=== PATIENT | female | born 1950 | race Caucasian/White ===

== ENCOUNTER 2024-04-25 01:07 | Inpatient (IN) | payer MEDICARE, OTHER, SELFPAY ==
[2024-04-24] VITALS (9 sets, daily range): BP systolic 104–139; BP diastolic 56–108; BMI 29.0
[2024-04-24 16:51] LABS: % Basophils 0.3 % (0-2); % Eosinophils 0.1 % (0-6); % Immature Granulocytes 0.9 % (0-0.5); % Lymphocytes 8.4 % (20.5-51.1); % Monocytes 12.2 % (1.7-9.3); % Neutrophils 78.1 % (42.2-75.2); Absolute Basophils 0.1 10^3/uL (0-0.2); Absolute Immature Granulocytes 0.2 10^3/uL (0-0.05); Absolute Lymphocytes 1.8 10^3/uL (1.2-3.4); Absolute Monocytes 2.6 10^3/uL (0.1-0.6); Absolute Neutrophils 16.4 10^3/uL (1.4-6.5); Hematocrit 39.7 % (37.0-47.0); Hemoglobin 13.3 g/dL (12.0-16.0); Mean Corp Hgb Conc. 33.5 g/dL (33.0-37.0); Mean Corpuscular Hgb 30.7 pg (27.0-31.0); Mean Corpuscular Volume 91.7 fL (81.0-99.0); Mean Platelet Volume 11.2 fL (7.4-10.4); Nucleated Red Blood Cells % 0 %; Platelet Count 168 10^3/uL (130-400); Red Blood Cell Count 4.33 10^6/uL (4.20-5.40); Red Cell Dist. Width 13.4 % (11.5-14.5)
[2024-04-24 17:07] LABS: Urine Albumin Trace (Neg - Trace); Urine Bilirubin 1+ (Negative); Urine Character Clear (Clear); Urine Color Amber; Urine Glucose Negative (Negative); Urine Ketone 1+ (Negative); Urine Leukocyte Negative (Negative); Urine Nitrite Negative (Negative); Urine Occult Blood Negative (Negative); Urine Urobilinogen 1+ (Neg - 1+)
[2024-04-24 17:09] LABS: ALT (SGPT) 16 U/L (0-35); AST (SGOT) 17 U/L (14-36); Albumin 3.4 g/dl (3.5-5.0); Alkaline Phosphatase 84 U/L (38-126); Blood Urea Nitrogen 37 mg/dl (7-17); Calcium 8.7 mg/dl (8.4-10.2); Carbon Dioxide 31 mmol/L (22-30); Chloride 99 mmol/L (98-107); Estimated Creatinine Clearance 52 ml/min; Glucose 152 mg/dl (70-99); Potassium 3.8 mmol/L (3.5-5.1); Sodium 141 mmol/L (135-145); Total Bilirubin 0.6 mg/dl (0.2-1.3); eGFR > 60.00
[2024-04-24 17:21] LABS: COVID-19 Antigen Negative (Negative)
--- NOTE | 2024-04-24 22:52 | ED.GENMED ---
History of Present Illness
General
Chief Complaint: Change in Mental Status
Source: patient
Exam Limitations: none
Time Seen by Provider: 04/24/24 16:08
Nursing documentation reviewed up to this point in time: agreed with
History of Present Illness
History of Present Illness:
73-year-old female with past medical history of Parkinson's disease, dementia, hypothyroidism, hyperlipidemia who presents to the emergency room from [facility] for evaluation of change in mental status. Patient cannot
meaningfully participate in history because of her significant dementia. I spoke to the [facility] staff they report that over the past few days she has had increased lethargy and confusion and today seems much more lethargic and so they sent her
to the emergency to be assessed. They have not noticed any other specific symptoms. She did have a minor fall last week but no serious injuries. Patient says that she feels weak but denies any other complaints on review of systems. She denies
headache. Denies neck pain. Denies chest or abdominal pain. Denies back pain. Review of her medication shows no blood thinners.
Past History
Past History
ED Past Medical History: CVA, Hypothyroidism, Psychiatric (biploar, schizophrenia), Other (PVD, gait dysfunction, dementia) and Other (Kidney stones)
ED Past Surgical History: Other (Cecil teeth removal)
Social History
Tobacco: Non-smoker
Alcohol: None
Drug: None
Living: [facility]
Review of Systems
Review of Systems
Unable to obtain full review of systems at this time due to: dementia
Phy Exam
Physical Exam
Physical Exam:
General: Somewhat lethargic but wakes to voice, oriented x 1, not in distress
Head: Normocephalic, atraumatic
Eyes: Conjunctiva normal, EOMI, pupils equal round and reactive to light bilaterally
Throat: Airway intact, handling secretions
Neck: Trachea midline, supple without meningismus
Lungs: Clear to auscultation bilaterally, no wheezing, rales, rhonchi
Heart: Regular rate and rhythm, no murmurs, gallops, or rubs
Abd: Soft, non distended, no masses, no apparent tenderness
Neuro: No gross cranial nerve deficits, follows basic commands, attempts to respond to questions appropriately, no clear dysarthria or aphasia, generally weak but no focal weakness or numbness
Skin: no rash
Extremities: No edema in extremities, equal pulses in all extremities
Scores
Heart Failure Risk
Heart Failure Risk Score: Not Applicable
Heart Score for Chest Pain Patients
STEMI patient?: Not applicable
Withdrawal Assessment of Alcohol
Withdrawal Assessment Completed?: Not applicable
Course
Orders/Labs/Results
Orders:
Orders
04/24/24 16:09
Electrocardiogram (*1) Urgent
Reason for Study: Fatigue / Weakness
CT Head W/o Iv Contrast Urgent
Comment:
Reason For Exam: change in mentation
EKG- Treatment ONCE
CR Chest Portable - 1 View Urgent
Comment:
Reason For Exam: confusion, r/o pna
Reason Study Needs to be Portable: Unable to Transport
04/24/24 16:19
COVID-19 Antigen Urgent
Source: Nasal Swab
Complete Blood Count/With Diff Urgent
Comprehensive Metabolic Panel Urgent
TSH Reflex To Free T4 Urgent
Urinalysis Reflex To Culture Urgent
Date Specimen was Collected: 04/24/24
Time Specimen was Collected: 16:14
04/24/24 21:19
CT Chest/abd/pel W Iv Cont Urgent
Comment:
Reason For Exam: confused, sepsis, source unclear
04/24/24 23:02
0.9% Sodium Chloride 1000 ml [Nss] 1,000 ml IV BOLUS
04/24/24 23:37
CefTRIAXone [Rocephin] 1,000 mg IV NOW STA
MetroNIDAZOLE 500 MG/100 ML [Flagyl 500 mg] 100 ml IV NOW
10/14/24 23:39
SURGICAL CONSULT Urgent
Consulting Provider: Hi Banerjee
Was physician already notified: Yes
Abnormal Lab Results
04/24/24
16:19
WBC 21.0 H 10^3/uL
(4.8-10.8)
MPV 11.2 H fL
(7.4-10.4)
Abs Immat Gran (auto) 0.2 H 10^3/uL
(0-0.05)
Absolute Neuts (auto) 16.4 H 10^3/uL
(1.4-6.5)
Absolute Monos (auto) 2.6 H 10^3/uL
(0.1-0.6)
Immature Gran % 0.9 H %
(0-0.5)
Neutrophils % 78.1 H %
(42.2-75.2)
Lymphocytes % 8.4 L %
(20.5-51.1)
Monocytes % 12.2 H %
(1.7-9.3)
Carbon Dioxide 31 H mmol/L
(22-30)
BUN 37 H mg/dl
(7-17)
Glucose 152 H mg/dl
(70-99)
Total Protein 6.0 L g/dl
(6.3-8.2)
Albumin 3.4 L g/dl
(3.5-5.0)
Urine Ketones 1+ A
(Negative)
Urine Bilirubin 1+ A
(Negative)
04/24/24 16:19
04/24/24 16:19
Vital Signs
Initial and Last Documented VS:
Initial Vital Signs
Temp Pulse Resp BP Pulse Ox
36.6 C 75 24 124/76 95
04/24/24 16:04 04/24/24 16:04 04/24/24 16:04 04/24/24 16:04 04/24/24 16:04
Last Documented Vital Signs
Temp Pulse Resp BP Pulse Ox
36.7 C 80 20 130/100 96
04/24/24 22:00 04/24/24 22:00 04/24/24 22:00 04/24/24 22:00 04/24/24 22:00
MDM/Problems Addressed
Differential Diagnosis Includes:
Infection including UTI or pneumonia, intra-abdominal infection; stroke; dehydration; worsening dementia, polypharmacy, delirium
MDM/Problems Addressed:
73-year-old female presents from [facility] for progressive increasing lethargy and confusion over the past few days. Vital signs significant for tachypnea here but acceptable pulse ox, no fever, normal blood pressure, normal heart rate.
Physical exam as above. Will place an IV check labs including a CBC and a CMP. Check thyroid studies. Check urinalysis. Check COVID swab. Will check chest x-ray and EKG. Check CT head. Reassess after the above.
Labs reviewed: CBC shows significant leukocytosis to 21. Predominant neutrophils. CMP shows elevated BUN concerning for possible dehydration. Thyroid studies acceptable. Urinalysis negative for infection. COVID-negative. Chest x-ray no acute
disease. CT head negative for any acute pathology. Patient remains mildly lethargic it could simply be dehydration but with multiple SIRS criteria concern for occult infection will send for CT chest/abdomen/pelvis to rule out infectious process.
Fluids in progress.
CT shows signs concerning for acute cholecystitis. Will cover with antibiotics. Case discussed with general surgery for consultation. Case discussed with hospitalist for admission.
Chronic conditions affecting care:
Dementia
*Radiology
Radiology exam reviewed: radiology read reviewed
*Pulse Oximetry
Patient hypoxic: no
*EKG
Interpreted by ED Provider?: Yes
Heart Rate: 75
Rate: normal
Rhythm: sinus
[place]: normal axis
Interval: normal interval
QRS Pattern: normal QRS
Ischemia: non-specific ST changes
*Critical Care Note
Total Time (30-74mins, 75-104mins- exclusive of procedures): Not Applicable
Data Reviewed
Source: patient, records, ambulance crew, [facility] and [facility] records
Patient Management
Discussion with other providers: skilled nursing staff (Discussed with [facility] staff)
ED Attending Note
-
Portions of this chart may have been created with voice recognition software.� Occasional wrong word or��sound alike� substitutions may have occurred due to the inherent limitations of voice recognition software.
Discharge Plan
Departure
Patient Disposition: Admit
Date of Disposition: 04/24/24
Time of Disposition: 23:36
Admit to doctor: Mackenzie
Presentation/result/management discussed w/ accepting MD/DO: Hospitalist
Discharge Problem:
Acute cholecystitis
Prescriptions:
No Action
amantadine HCl 100 MG capsule
100 mg PO BID
lorazepam 1 MG tablet
1 mg PO TID
olanzapine [Zyprexa] 20 MG tablet
20 mg PO HS
acetaminophen 325 MG tablet
650 mg PO Q4HPRN PRN (Reason: mild pain/fever>100f)
divalproex 250 MG tablet,delayed release (DR/EC)
250 mg PO HS
magnesium hydroxide 30 ML suspension
30 ml PO HSPRN PRN (Reason: if no bm x 3 days)
bisacodyl [OneLAX Bisacodyl] 10 MG suppository
10 mg CO DAILYPRN PRN (Reason: if mom ineffective)
docusate sodium 100 MG capsule
100 mg PO DAILY
divalproex 500 MG tablet,delayed release (DR/EC)
500 mg PO TID
amlodipine 10 MG tablet
10 mg PO DAILY
polyethylene glycol 3350 17 GRAMS powder in packet
17 grams PO DAILY
Fleet Enema 19-7 gram/118 mL Enema
118 ml CO DAILYPRN PRN (Reason: if dulcolax is ineffective)
fluoxetine 10 mg capsule
10 mg PO HS
Rx Instructions:
taken w/ 20mg = 30mg
haloperidol 2 mg tablet
2 mg PO BID
fluoxetine 20 mg capsule
20 mg PO HS
Rx Instructions:
taken w/ 10mg = 30mg
levothyroxine 112 mcg tablet
112 mcg PO DAILY
Referrals:
Sourav Vanessa I., DO [Family Provider] -
Interventions
Interventions:
*Risk Screen - Suicide Last Done: 04/24/24 16:04
*General Assessment Last Done: 04/24/24 16:04
*Neglect/Abuse Screening Last Done: 04/24/24 16:04
ED- Fall Risk Assessment Last Done: 04/24/24 16:08
*ED COVID-19 Vaccine History Last Done: 04/24/24 16:04
ED- Pulmonary Assessment Last Done: 04/24/24 20:23
ED- Neurological Assessment Last Done: 04/24/24 20:23
ED- Cardiac Assessment Last Done: 04/24/24 20:23
ED Swallowing Screen Last Done: 04/24/24 16:12
Discharge Date and Time
Print Language: BURMESE
[2024-04-24] MEDS: NSS 1000 IV (23:25)
[2024-04-25] VITALS (18 sets, daily range): BP systolic 5–155; BP diastolic 20–87; BMI 28.6
--- NOTE | 2024-04-25 00:34 | HPS.HSE ---
Family Physician
-
Family Physician: Sourav Vanessa
Chief Complaint
-
Altered mental status
History of Present Illness
Patient is a 73-year-old female with past medical history of Parkinson disease, dementia, schizophrenia, hypothyroid, hyperlipidemia who was transferred [facility] [place] [facility] to the emergency department for altered mental status.
Patient unable to provide any significant history. She only reports that she had had a fall recently and that she is having some abdominal discomfort but the time I saw her she said that abdominal discomfort had improved. Records from the nursing
home indicated that the patient has had increased lethargy and confusion for the last few days. The reported that she feels weak but denies any specific complaints including headache or neck pain. Denied chest or abdominal pain. Also denied back
pain. Patient is not on any blood thinners. Due to increased lethargy she was sent to the emergency department for evaluation. She had no recent hospitalizations.
On arrival in the ED the patient was afebrile and hemodynamically stable. Normal pressure was 1 3100. She was at 90% on room air. Chest x-ray shows no acute infiltrates. She had negative COVID. She had leukocytosis of 21,000 with hemoglobin of
13 and a normal platelet count. Chemistries are notable for a bicarb of 31 but otherwise unremarkable. LFTs were within normal limit. TSH was normal. UA shows few ketones but otherwise unremarkable.
Patient had a CT of the head which showed no acute intracranial changes. The CT of the abdomen and pelvis shows gallstones with secondary changes consistent with cholecystitis. She had mild to minimal pain on my examination.
Medical History
Past Medical History
Past Medical History: Reports Other
Additional Past Medical History:
Parkinson's disease
Hypothyroidism
Hypertension
Schizophrenia
Past Surgical History: Reports Other
Social History
Tobacco: Former Smoker
Alcohol: None
Drug: None
Personal: Single
Living: Long Term
Employment: Disabled
Family History
Family History: Not pertinent
Allergies / Home Medications
Allergies reflects when Allergies were last updated in [facility].
Home Medications with original date entered in [facility]
Allergy/Medication List:
Allergies
Allergy/AdvReac Type Severity Reaction Status Date / Time
No Known Allergies Allergy Verified 10/14/20 19:47
Home Medications
amantadine HCl 100 mg capsule 100 mg PO BID 05/18/17
lorazepam 1 mg tablet 1 mg PO TID 05/18/17
olanzapine 20 mg tablet (Zyprexa) 20 mg PO HS 05/18/17
acetaminophen 325 mg tablet 650 mg PO Q4HPRN PRN mild pain/fever>100f 12/01/17
bisacodyl 10 mg rectal suppository (OneLAX Bisacodyl) 10 mg SD DAILYPRN PRN if mom ineffective 12/01/17
divalproex 250 mg tablet,delayed release 250 mg PO HS 12/01/17
docusate sodium 100 mg capsule 100 mg PO DAILY 12/01/17
magnesium hydroxide 400 mg/5 mL oral suspension 30 ml PO HSPRN PRN if no bm x 3 days 12/01/17
amlodipine 10 mg tablet 10 mg PO DAILY 10/14/20
divalproex 500 mg tablet,delayed release 500 mg PO TID 10/14/20
polyethylene glycol 3350 17 gram oral powder packet 17 grams PO DAILY 02/10/21
fluoxetine 10 mg capsule 10 mg PO HS 04/24/24
fluoxetine 20 mg capsule 20 mg PO HS 04/24/24
haloperidol 2 mg tablet 2 mg PO BID 04/24/24
levothyroxine 112 mcg tablet 112 mcg PO DAILY 04/24/24
sodium phosphates 19 gram-7 gram/118 mL enema (Fleet Enema) 118 ml SD DAILYPRN PRN if dulcolax is ineffective 04/24/24
Review of Systems
-
History Source: Long Term
Constitutional: Reports No Symptoms
EENT: Reports No Symptoms
Respiratory: Reports No Symptoms
Cardiac: Reports No Symptoms
Abdomen/GI: Reports No Symptoms
: Reports No Symptoms
Musculoskeletal: Reports No Symptoms
Skin: Reports No Symptoms
Neurological: Reports Weakness and Other
Endocrine: Reports No Symptoms
Hematologic/Lymphatic: Reports No Symptoms
Psych: Reports Calm
Physical Exam
Vital Signs
Vital Signs
Temp Pulse Resp BP Pulse Ox
98.1 F 80 20 130/100 96
04/24/24 22:00 04/24/24 22:00 04/24/24 22:00 04/24/24 22:00 04/24/24 22:00
Physical Exam
General: Comfortable and Conversant
HEENT: NormoCephalic, Anicteric, Moist mucous membranes and Atraumatic
Respiratory: Clear
Cardiac: S1/S2 and Regular Rhythm
Breast: Deferred by me
GI: Soft, Non Tender, Non Distended and Normal Bowel Sounds
Rectal: Deferred by Provider
Genito-urinary: Deferred by me
Musculoskeletal: No Clubbing, No Cyanosis and No Edema
Skin: Warm
Neuro: Alert, Oriented (Oriented to person) and Nonfocal/grossly intact
Hematologic/Lymphatic: No Lymphadenopathy
Psych: Calm and Confused
Laboratory Results
-
04/24/24 16:19
04/24/24 16:19
Laboratory Results
Total Bilirubin 0.6 mg/dl (0.2-1.3) 04/24/24 16:19
AST 17 U/L (14-36) 04/24/24 16:19
ALT 16 U/L (0-35) 04/24/24 16:19
Alkaline Phosphatase 84 U/L (38-126) 04/24/24 16:19
Data Reviewed
-
Diagnostic Radiology: Image Personally Visualized and interpreted
CT Scan: Report Reviewed by me
Lab Data: Labs Reviewed by me
Old Records: Reviewed
Impression/Plan
-
IMPRESSION:
73-year-old with history of dementia and schizophrenia who comes in with increasing lethargy weakness and confusion. She has significant leukocytosis and found to have gallstones and cholecystitis on CT scan. The rest of the infectious workup so
far has been negative for pneumonia or urinary tract infection. Negative COVID. Labs noted showed no other significant abnormalities. CT of the head was negative.
PLAN:
Acute cholecystitis -acute cholecystitis is highly suspected however patient is quite comfortable right now and has not received any pain medications.
-Admit to MedSurg
-N.p.o. except sips and oral medications
-Maintenance IV fluids
-Okay with ceftriaxone and Flagyl for now
-Blood cultures if spike fever
-Surgery consult in a.m. and consider HIDA
Confusion
-Suspect secondary to cholecystitis
-Check ammonia level given patient on valproic acid
Parkinson Dz
- continue amantadine
HTN
- norvasc
Hypothyroid - tsh wnl
- continue levothyroxine
Other issues - Dementia and Schizophrenia
-Continue Depakote for now, continue fluoxetine and haloperidol
[2024-04-25] MEDS: ROCEPHIN 1000 MG IV ×2 (01:12→23:07)
[2024-04-25] MEDS: FLAGYL 500 MG 100 IV ×4 (01:51→23:06)
[2024-04-25 04:41] LABS: Hematocrit 37.4 % (37.0-47.0); Hemoglobin 12.8 g/dL (12.0-16.0); Mean Corp Hgb Conc. 34.2 g/dL (33.0-37.0); Mean Corpuscular Volume 93.5 fL (81.0-99.0); Mean Platelet Volume 11.3 fL (7.4-10.4); Platelet Count 148 10^3/uL (130-400); Red Cell Dist. Width 13.2 % (11.5-14.5); White Blood Cell Count 18.9 10^3/uL (4.8-10.8)
[2024-04-25 05:01] LABS: Blood Urea Nitrogen 32 mg/dl (7-17); Calcium 8.2 mg/dl (8.4-10.2); Carbon Dioxide 29 mmol/L (22-30); Chloride 102 mmol/L (98-107); Estimated Creatinine Clearance 67 ml/min; Glucose 137 mg/dl (70-99); Potassium 4.1 mmol/L (3.5-5.1); Sodium 140 mmol/L (135-145); eGFR > 60.00
[2024-04-25] MEDS: D5LR 1000 IV ×2 (05:24→20:00)
[2024-04-25] MEDS: SYNTHROID 112 MCG PO (05:32)
[2024-04-25 05:50] LABS: Hepatitis C Antibody Negative (Negative)
--- NOTE | 2024-04-25 07:38 | W.PN.HOSP.TC ---
Today's Communication/Plan
-
NPO for surgical evaluation today likely cholecystitis
cont abx
NWB LLE, apply CAM boot
pain control
Assessment / Plan
Assessment / Plan
Physical Exam
General: Comfortable and Conversant
HEENT: NormoCephalic, Anicteric, Moist mucous membranes and Atraumatic
Respiratory: Clear
Cardiac: S1/S2 and Regular Rhythm
GI: Soft, Non Tender, Non Distended and Normal Bowel Sounds
Musculoskeletal: No Clubbing, No Cyanosis and No Edema, tenderness swelling left ankle, tenderness left hip, both legs are equal length
Skin: Warm
Neuro: Lethargic but arousable, disoriented to time, conversant
Psych: Calm and Confused
73F dementia and schizophrenia who comes in with increasing lethargy weakness and confusion. She has significant leukocytosis and found to have gallstones and cholecystitis on CT scan. The rest of the infectious workup so far has been negative for
pneumonia or urinary tract infection. Negative COVID. Labs noted showed no other significant abnormalities. CT of the head was negative.
PLAN:
Acute cholecystitis
-acute cholecystitis highly suspected though no abd tenderness pain noted
-N.p.o. except sips and oral medications
-Maintenance IV fluids
-cont ceftriaxone and Flagyl
-Blood cultures if spike fever
-HIDA results noted
-Surgery eval appreciated NPO for surgical intervention
Left Lower Ext Distal Fibula Fx
-ELLIS Haynes reported there was concern few days [employer]PER[employer] patient had fractured LLE fibula, oupt orthopedic eval was scheduled
-wheelchair bound at baseline but able to perform her own transfers
-LLE ext appreciated possible spiral fracture distal fibula
-Ankle X-ray ordered to further elucidate
-NWB LLE, CAM Boot ordered, eventual orthopedic eval, above surgery takes priority
Confusion likely acute metabolic encephalopathy 2/2 cholecystitis as above
Parkinson Dz
- continue amantadine
HTN
- norvasc
Hypothyroid - tsh wnl
- continue levothyroxine
Other issues - Dementia and Schizophrenia
-Continue Depakote for now, continue fluoxetine and haloperidol
discussed with patient and patient's cousin ELLIS Haynes
I spent a total of 60 minutes with the patient or on the floor. More than 50% of this time involved counseling and coordination of care.
Anticipated Discharge: > 48 hours
Subjective/Interval History
-
Date of Service: April 25, 2024
Lethargic but arousable. conversant coherent some confusion memory issues noted. Cousin ELLIS Haynes present during evaluation
Objective Data
-
Labs:
Laboratory Results
04/25/24
04:24
WBC 18.9 H
Hgb 12.8
Hct 37.4
Plt Count 148
Sodium 140
Potassium 4.1
Chloride 102
Carbon Dioxide 29
BUN 32 H
Creatinine 0.7
Glucose 137 H
Calcium 8.2 L
Vital Signs:
Vital Signs
Temp Pulse Resp BP Pulse Ox
97.7 F 79 16 139/76 96
04/25/24 02:30 04/25/24 02:30 04/25/24 02:30 04/25/24 02:30 04/25/24 02:30
I&O
04/24/24 04/25/24 04/26/24
06:59 06:59 06:59
Intake Total 1250 / 1250
Balance 1250 / 1250
[2024-04-25] MEDS: HALDOL 2 MG PO (08:24)
[2024-04-25] MEDS: DEPAKOTE (12 HR RELEASE) 500 MG PO (08:25)
[2024-04-25] MEDS: NORVASC 10 MG PO (08:25)
[2024-04-25] MEDS: SYMMETREL 100 MG PO (08:25)
[2024-04-25] MEDS: ATIVAN 1 MG PO (08:25)
[2024-04-25] MEDS: COLACE 100 MG PO (08:25)
--- NOTE | 2024-04-25 10:15 | CM ---
Pt from [facility].
CM spoke w/ nurse from [facility] re pt's BL and prev. level of functioning.
Prior to admission, pt was alert and oriented, 2-3, behavioral outbursts and accusatory behavior.
This was presented about once a week per nurse.
Pt was a max assist of 2 for transfers and stand pivot to get OOB
Pt uses a wheelchair w/ supported cushion between her legs to prevent her from sliding out as she leans fwd while in chair
It was confirmed pt is a bed hold. Unsure of how many days.
Referral to return to facility to be completed
CM will cont. to follow for d/c planning
Plan: Return to [facility] at d/c
--- NOTE | 2024-04-25 12:02 | PTCARENOTE ---
IR[facility] note: Asked by site damage prevention technician to give Morphine 2mg IV for HIDA scan. patient identified. Allergies verified. Left arm PIV flushed and patent. Pre medicine Vitals @ 1153 BP 170/88 HR 82 RR 16 SPO2 92% RA. Morphine Sulfate 2 mg IV given
per order. tolerated well. Post Medicine vitals @ 1200 BP 166/82, HR 84, RR 14 SPO2 93% RA.
[2024-04-25] MEDS: DEPAKOTE (12 HR RELEASE) PO ×3 (12:39→22:35)
--- NOTE | 2024-04-25 14:14 | CON.GS ---
Medical History
-
Chief Complaint: Lethargy
History of Present Illness:
Patient is a 73 yo F with a PMH notable for Parkinson's dementia, schizophrenia, HLD, and hypothyroidism. Ms. Sun presents in transfer from [facility] due to lethargy and altered mental status. Patient unable to provide any
significant history. Currently denies any abdominal pain. No nausea or vomiting. No history of fevers. Recently visited by her aunt and cousin who noted that she was more lethargic and had a depressed mental status. Their concerns prompted
transfer to a hospital for further workup and management. Currently she denies any abdominal pain. She denies any prior knowledge of gallbladder issues.
Past Medical History
Past Medical History: Hypercholesterolemia, Hypothyroidism and Psychiatric (Parkinson's dementia, schizophrenia)
Past Surgical History: None
Social History
Tobacco: Former Smoker
Alcohol: None
Drug: None
Personal: Single
Living: Alf
Family History
Family History: Reviewed & Not Pertinent
Allergies / Home Medications
Allergy/AdvReac Type Severity Reaction Status Date / Time
No Known Allergies Allergy Verified 10/14/20 19:47
�Medication �Instructions �Recorded �Confirmed �Type
amantadine HCl 100 mg capsule 100 mg PO BID Mental Health 05/18/17 04/24/24 History
lorazepam 1 mg tablet 1 mg PO TID Mental Health/Anxiety 05/18/17 04/24/24 History
olanzapine 20 mg tablet (Zyprexa) 20 mg PO [facility] health 05/18/17 04/24/24 History
acetaminophen 325 mg tablet 650 mg PO Q4HPRN PRN mild 12/01/17 04/24/24 History
pain/fever>100f
bisacodyl 10 mg rectal suppository 10 mg AK DAILYPRN PRN if mom 12/01/17 04/24/24 History
(OneLAX Bisacodyl) ineffective
divalproex 250 mg tablet,delayed 250 mg PO [facility] health 12/01/17 04/24/24 History
release
docusate sodium 100 mg capsule 100 mg PO DAILY Constipation 12/01/17 04/24/24 History
magnesium hydroxide 400 mg/5 mL 30 ml PO HSPRN PRN if no bm x 3 12/01/17 04/24/24 History
oral suspension days
amlodipine 10 mg tablet 10 mg PO DAILY Blood Pressure 10/14/20 04/24/24 History
divalproex 500 mg tablet,delayed 500 mg PO TID mental health 10/14/20 04/24/24 History
release
polyethylene glycol 3350 17 gram 17 grams PO DAILY Constipation 02/10/21 04/24/24 History
oral powder packet
fluoxetine 10 mg capsule 10 mg PO HS Depression 04/24/24 04/24/24 History
fluoxetine 20 mg capsule 20 mg PO HS Depression 04/24/24 04/24/24 History
haloperidol 2 mg tablet 2 mg PO BID 04/24/24 04/24/24 History
levothyroxine 112 mcg tablet 112 mcg PO DAILY Thyroid 04/24/24 04/24/24 History
sodium phosphates 19 gram-7 118 ml AK DAILYPRN PRN if dulcolax 04/24/24 04/24/24 History
gram/118 mL enema (Fleet Enema) is ineffective
Review of Systems
-
A 10 point review of systems was completed, and was negative except as per HPI.
Physical Exam
Vital Signs
Temp Pulse Resp BP Pulse Ox
98.4 F 79 16 130/66 94
04/25/24 07:15 04/25/24 07:15 04/25/24 07:15 04/25/24 07:15 04/25/24 07:15
04/24/24 04/25/24 04/26/24
06:59 06:59 06:59
Actual Weight 73.227 kg
Body Mass Index (BMI) 28.6
Lab Results
04/25/24 04:24
04/25/24 04:24
WBC 18.9 10^3/uL (4.8-10.8) H 04/25/24 04:24
Hgb 12.8 g/dL (12.0-16.0) 04/25/24 04:24
Hct 37.4 % (37.0-47.0) 04/25/24 04:24
Plt Count 148 10^3/uL (130-400) 04/25/24 04:24
Abs Immat Gran (auto) 0.2 10^3/uL (0-0.05) H 04/24/24 16:19
Neutrophils % 78.1 % (42.2-75.2) H 04/24/24 16:19
Physical Exam
General: Well Developed, Well Nourished and No Apparent Distress
HEENT: Normocephalic and Anicteric
Respiratory: Non Labored Respirations
Cardiac: Regular Rhythm
GI: Soft, Non Tender, Non Distended and Other (Nonperitoneal, negative Cannon's sign)
Musculoskeletal: No Edema
Skin: Warm and Dry
Neuro: Nonfocal/Grossly Intact
Data Reviewed
-
CT Scan: Image Personally Visualized and interpreted
Labs: Labs Reviewed by me
Assessment / Plan
-
Patient is a 73 yo F likely presenting with acute on chronic cholecystitis
Difficult history given altered mental status and underlying dementia. CT scan imaging concerning for cholecystitis with significant stone burden and wall thickening and pericholecystic inflammation. Diagnosis confirmed with HIDA scan. Options
for management were discussed with the patient's medical decision maker (Esperanza Ventura, cousin). Specifically, we discussed medical management with antibiotics alone, percutaneous drainage with cholecystostomy tube, and proceeding with
cholecystectomy. The pros and cons of the above was discussed. Recommend and plan for cholecystectomy.
Plan for laparoscopic cholecystectomy with possible cholangiogram. The procedure itself, as well as the risks, benefits, and alternatives was discussed. Specifically, we discussed the risk of bleeding, infection, injury to surrounding structures
(bowel, bile ducts), CBD injury, need for open procedure. We discussed that given her questionable delay in diagnosis this may be a more difficult gallbladder with the potential need for a subtotal cholecystectomy and drain placement. Typical
postprocedure recovery was discussed. All questions answered. Telephone consent was obtained.
-- Laparoscopic cholecystectomy with possible cholangiogram
-- NPO, IVF
-- Antibiotics: Zosyn
-- Re-admission postoperatively
[2024-04-25] MEDS: ATIVAN PO ×2 (15:38→22:35)
--- NOTE | 2024-04-25 15:38 | W.SUR.PREOP ---
Pre-Operative Surgical Note
-
I have examined this patient prior to the performance of the scheduled procedure.
The patient's condition is unchanged from the time of the current History and
Physical and the patient is able to undergo the scheduled procedure.
--- NOTE | 2024-04-25 15:49 | PTCARENOTE ---
patient with intermittent left hip and left lower leg pain. per her POA Ivy she fell on Wednesday and fractured her fibula and was supposed to follow up with orthopedist this week. Dr. Lindsey was notified at 11:53 and ordered x-ray, x-ray did confirm
distal fracture at ankle area, so ankle x-ray ordered.denies abd pain, turns with max assist x2-3, vss, for lap cholecystectomy, will continue to monitor.
--- NOTE | 2024-04-25 17:59 | W.IMMPOSTOP ---
Surgical Immed Post Op Note
-
Primary Surgeon: Hi Banerjee MD
Assisting Surgeon: Christiano Schreiber MD
Pre-op Diagnosis: Acute cholecystitis
Post-op Diagnosis: Gangrenous cholecystitis, intra-abdominal abscess
Procedure Performed:
1. Laparoscopic subtotal cholecystectomy with cholangiogram
2. Drainage of intra-abdominal abscess
Anesthesia Type: General
Specimen / Cultures:
1. Gallbladder and contents
Estimated Blood Loss: 11 cc
Complications: None
Operative Findings: [Necrotic, gangrenous cholecystitis with localized abscess/focal perforation. The hepatic flexure of the transverse colon was densely adherent over the infundibulum which was carefully lysed with sharp and blunt dissection.
Unable to obtain a critical view so a top-down subtotal cholecystectomy was performed with removal of roughly 13 large triangular gallstones. The ostium of the cystic duct was identified and the cholangiocatheter was successfully passed into the
ostium and a cholangiogram was performed. This showed filling of the cystic duct as well as the common bile duct. The cystic duct was fairly tortuous and in close proximity to the common bile duct so no further dissection was undertaken. The back
wall of the gallbladder was fulgurated and hemostasis was achieved. The ostium of the cystic duct as well as the surgical field was covered with Surgiflo. A 19 [place] round Wally drain was introduced to the right lateralmost port and secured at
the skin with a 2-0 nylon suture.
POST OP PLAN:
Unable to ligate the cystic duct. Anticipate likely need for an ERCP pending drain output
Imaging: Patient with a left fibular fracture, was placed in a boot postoperatively. Will need ankle films as soon as possible.
Labs: AM CMP, CBC
Diet: Okay for clears.
Analgesia: Tylenol 650mg q6 Joanie, Radha 5mg q6 PRN, Dilaudid 0.5mg q2h PRN
Neuro/vascular checks: q4h
AC/AP: Hold Therapeutic AC, Ok for DVT PPx
Activity: Ad Geovanna
Wound/Incisions/Drains: Routine, FRANKIE to bulb suction.
Abx: Will plan for a 7-day antibiotic course.
Dispo: RNF.
[2024-04-25] MEDS: LOVENOX 40 MG SC (18:58)
[2024-04-25] MEDS: PROZAC PO ×2 (22:35)
[2024-04-25] MEDS: ZYPREXA PO (22:35)
[2024-04-25] MEDS: HALDOL PO (22:35)
[2024-04-25] MEDS: SYMMETREL PO (22:35)
[2024-04-25] MEDS: STERILE WATER FOR INJECTION 10 ML IV (23:07)
[2024-04-25] MEDS: FLUSH (NSS) 1 FLUSH IV ×2 (23:07)
[2024-04-26] VITALS: BP 136/67
[2024-04-26] MEDS: TORADOL 10 MG IV ×2 (01:30→15:57)
[2024-04-26 04:00] VITALS: BP 133/60
[2024-04-26] MEDS: SYNTHROID 112 MCG PO (04:20)
--- NOTE | 2024-04-26 05:49 | DOWNTIME ---
There was a [employer] Client Chief Procurement Officer Downtime on 04/26/2024 from 0100 to 04/26/2024 at 0355. Downtime documentation of patient's care, including medication administrations, has been reconciled in the electronic record per guidelines. Refer to the
patient's paper chart under the miscellaneous tab to see printed paper medication records and downtime forms.
[2024-04-26 06:38] LABS: Hematocrit 34.9 % (37.0-47.0); Hemoglobin 11.9 g/dL (12.0-16.0); Mean Corp Hgb Conc. 34.1 g/dL (33.0-37.0); Mean Corpuscular Volume 93.8 fL (81.0-99.0); Mean Platelet Volume 11.4 fL (7.4-10.4); Platelet Count 178 10^3/uL (130-400); Red Blood Cell Count 3.72 10^6/uL (4.20-5.40); Red Cell Dist. Width 13.2 % (11.5-14.5); White Blood Cell Count 10.9 10^3/uL (4.8-10.8)
[2024-04-26 07:15] LABS: ALT (SGPT) 249 U/L (0-35); AST (SGOT) 218 U/L (14-36); Albumin 2.7 g/dl (3.5-5.0); Alkaline Phosphatase 241 U/L (38-126); Blood Urea Nitrogen 34 mg/dl (7-17); Calcium 8.1 mg/dl (8.4-10.2); Carbon Dioxide 30 mmol/L (22-30); Chloride 103 mmol/L (98-107); Estimated Creatinine Clearance 67 ml/min; Glucose 232 mg/dl (70-99); Magnesium 2.9 mg/dl (1.6-2.3); Phosphorus 3.3 mg/dl (2.5-4.5); Potassium 4.1 mmol/L (3.5-5.1); Sodium 141 mmol/L (135-145); Total Bilirubin 0.3 mg/dl (0.2-1.3); Total Protein 5.1 g/dl (6.3-8.2); eGFR > 60.00
--- NOTE | 2024-04-26 07:25 | W.PN.HOSP.TC ---
Today's Communication/Plan
-
cont abx
diet as per surgery
npo after midnight ERCP and possible stent with GI tomorrow
pain control
maintain LLE CAM boot WBAT
Assessment / Plan
Assessment / Plan
Physical Exam
General: Comfortable and Conversant
HEENT: NormoCephalic, Anicteric, Moist mucous membranes and Atraumatic
Respiratory: Clear
Cardiac: S1/S2 and Regular Rhythm
GI: Soft, Non Tender, Non Distended and Normal Bowel Sounds
Musculoskeletal: No Clubbing, No Cyanosis and No Edema, tenderness swelling left ankle, tenderness left hip, both legs are equal length
Skin: Warm
Neuro: Lethargic but arousable, disoriented to time, conversant
Psych: Calm and Confused
73F dementia and schizophrenia who comes in with increasing lethargy weakness and confusion. She has significant leukocytosis and found to have gallstones and cholecystitis on CT scan. The rest of the infectious workup so far has been negative for
pneumonia or urinary tract infection. Negative COVID. Labs noted showed no other significant abnormalities. CT of the head was negative.
PLAN:
Acute cholecystitis
-acute cholecystitis highly suspected though no abd tenderness pain noted
-clear liquid diet
-Maintenance IV fluids
-cont ceftriaxone and Flagyl
-Blood cultures if spike fever
-HIDA results noted
-Surgery eval appreciated s/p laparoscopic subtotal fenestrating cholecystectomy for severe acute on chronic cholecystitis 04/25
-Bile leak noted, GI eval appreciated NPO after midnight for ERCP and possible stent placement
Left Lower Ext Distal Fibula Fx
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
-wheelchair bound at baseline but able to perform her own transfers
-LLE ext Ankle X-ray appreciated distal nondisplaced fibula fx
-CAM Boot placed, orthopedic eval appreciated WBAT boot to be worn for 6 wks, outpt follow up recommended
Confusion likely acute metabolic encephalopathy 2/2 cholecystitis as above
resolving
Parkinson Dz
- continue amantadine
HTN
- norvasc
Hypothyroid - tsh wnl
- continue levothyroxine
Other issues - Dementia and Schizophrenia
-Continue Depakote for now, continue fluoxetine and haloperidol
discussed with patient and patient's cousin ELLIS Haynes
I spent a total of 50 minutes with the patient or on the floor. More than 50% of this time involved counseling and coordination of care.
Anticipated Discharge: 24 - 48 hours
Subjective/Interval History
-
Date of Service: April 26, 2024
no acute distress. AOx3, denies pain. Overall reports feeling well.
Objective Data
-
Labs:
Laboratory Results
04/26/24
06:10
WBC 10.9 H
Hgb 11.9 L
Hct 34.9 L
Plt Count 178 D
Sodium 141
Potassium 4.1
Chloride 103
Carbon Dioxide 30
BUN 34 H
Creatinine 0.7
Glucose 232 H
Calcium 8.1 L
Total Bilirubin 0.3
AST 218 H
ALT 249 H
Alkaline Phosphatase 241 H
Vital Signs:
Vital Signs
Temp Pulse Resp BP Pulse Ox
97.4 F 64 17 133/60 94
04/26/24 04:00 04/26/24 04:00 04/26/24 04:00 04/26/24 04:00 04/26/24 04:00
I&O
04/25/24 04/26/24 04/27/24
06:59 06:59 06:59
Intake Total 1250 / 1250 1540 / 1540
Output Total 155 / 155
Balance 1250 / 1250 1385 / 1385
[2024-04-26 07:30] VITALS: BP 144/66
[2024-04-26] MEDS: HALDOL 2 MG PO ×2 (08:19→21:44)
[2024-04-26] MEDS: ATIVAN 1 MG PO ×3 (08:19→21:44)
[2024-04-26] MEDS: DEPAKOTE (12 HR RELEASE) 500 MG PO ×3 (08:19→16:18)
[2024-04-26] MEDS: FLAGYL 500 MG 100 IV ×3 (08:19→23:20)
[2024-04-26] MEDS: SYMMETREL 100 MG PO ×2 (08:19→21:44)
[2024-04-26] MEDS: COLACE 100 MG PO (08:19)
[2024-04-26] MEDS: NORVASC 10 MG PO (08:19)
--- NOTE | 2024-04-26 10:14 | PN.CDI ---
CDI
- -
CDI:
Physician Documentation Request
Admit Date: 04/25/24 01:07
Dear Doctor Rosalia,
Patient admitted for gangrenous cholecystitis.
04/25 Hospitalist PN: 'Acute cholecystitis...cont ceftriaxone and Flagyl-Blood cultures if spike fever'
Immediate Post-Op Report: 'Gangrenous cholecystitis, intra-abdominal abscess'
Laboratory Tests
04/24/24 04/25/24
16:19 04:24
WBC 21.0 H 18.9 H
04/24/24
16:04 04/24/24
17:00 04/24/24
18:00
Resp Rate 24 25 27
Please clarify which of the following most accurately describes the status of the patient's infection:
Sepsis, POA
- Systemic manifestations of infection, with 2 or more SIRS criteria which include:
- Fever >100.4 degrees F or hypothermia < 96.8 degrees F
- Leukocytosis - WBC > 12,000 or leukopenia - WBC < 4,000 or > 10% bands
- Tachycardia > 90 beats per minute
- Tachypnea - RR > 20 breaths per minute or PaCO2 , 32mmHg
Source: Merck Manual 2012
Localized Infection Only, Without Systemic Illness
- indicate the site/source, such as UTI, pneumonia etc.
Other
Use of terms such as suspected, likely, concern for, or probable (associated with a specific diagnosis that is being evaluated, monitored, or treated as if it exists) are acceptable and can be coded in the inpatient setting, when documented at the
time of discharge.
Thank you,
Ermelinda Kim RN, BSN
CDI Specialist
Available via [facility] text
Please use your independent medical judgment in providing your response.
--- NOTE | 2024-04-26 11:14 | CON.GI ---
Addendum entered and electronically signed by Jelena Price Do, MD 04/26/24 15:49:
I saw and examined the patient.
The SALES DESIGNER's note was reviewed and I agree with the note.
Comment: Kasie is a 73yo [facility] resident with Parkinson's, CVA and schizophrenia who was admitted for change in mental status and had cholecystectomy 04/25 for cholecystitis. GI consulted for bile leak. There is some bile in FRANKIE drain.
She is not good historian and denies ab pain. Vitals stable. Exam with FRANKIE drain with galena fluid, obese pale appearing. dressings c/d/i. Labs reviewed LFTs elevated
Impression
- Bile leak
- POD1 lap cholecystectomy
- Elevated LFTs
- Obesity
- Parkinson's
- Schziphrenia
- CVA
Recommendations
- Plan for ERCP with stent placement
- Contacted three times family Ivy [phone] and left message. Also spoke to [phone] Brigette who is her cousin. Unable to yet obtain consent via phone.
- C/w CLD NPO at MA
- Monitor drain output
Will follow with you
Original Note:
Consultation
-
Date/Time Consultation Requested: 04/26/24 1100
Date/Time Consultation Performed: 04/26/24 1115
Requesting Provider: Isaias Worthy MD
Performing Provider: IZZY Chang, Jelena Lomax MD
Reason for Consultation: s/p lap virgilio with concern for leak
Medical History
Chief Complaint / HPI
Chief Complaint: increased bile output fromJP drain
History of Present Illness:
Pt is a 73yo with hx Parkinson's, CVA, hypercholesterolemia, hypothyroidism, bipolar, schizophrenia, dementia, renal stones with admission from SN[facility] 04/24 with change in mental status. On admission she was noted with leukocytosis with CT concerning
for cholecystitis with stone burden and wall thickening with inflammation with + HIDA with patent CBD but non visualization concern for cystic duct obstruction. Pt went 10/15 for lap virgilio with noted necrotic gangrenous cholecystitis with localized
abscess/focal perforation, hepatic flexure and transverse colon densely adherent over infundibulum with subtotal virgilio with removal of 13 large stones. there was filling defect in cystic duct and CBD with tortuous cystic duct in close proximity to
CBD no further dissection complete and drain placed. Asked to eval today for ERCP and stent as noted with increased bilious drainage from FRANKIE drain and rise in LFT's to bili 0.3, AST 218, ALT 249, alk phos 241. Pt also noted with recent fall with
non displaced left fibula fracture.
In review with patient she admits to some abdominal pain and vomiting prior to admission with some improvement today. She dose have occasional GERD but denies dysphagia, diarrhea, constipation or rectal bleeding. Pt denies hx EGD or
colonoscopy in past.
Past Medical History
Past Medical History: CVA, Hypercholesterolemia, Hypothyroidism, Psychiatric (bipolar schizophrenia) and Other (PVD, gait dysfunction, dementia, kidney stones, parkinson's )
Past Surgical History: Other (wisdom teeth removal)
Social History
Tobacco: Former Smoker
Alcohol: None
Drug: None
Living: [facility]
Employment: Retired
Family History
Family History: Other (Pt unsure of history)
Allergies / Home Medications
Allergy/AdvReac Type Severity Reaction Status Date / Time
No Known Allergies Allergy Verified 10/14/20 19:47
�Medication �Instructions �Recorded
amantadine HCl 100 mg capsule 100 mg PO BID Mental Health 05/18/17
lorazepam 1 mg tablet 1 mg PO TID Mental Health/Anxiety 05/18/17
olanzapine 20 mg tablet (Zyprexa) 20 mg PO HS mental health 05/18/17
acetaminophen 325 mg tablet 650 mg PO Q4HPRN PRN mild 12/01/17
pain/fever>100f
bisacodyl 10 mg rectal suppository 10 mg MD DAILYPRN PRN if mom 12/01/17
(OneLAX Bisacodyl) ineffective
divalproex 250 mg tablet,delayed 250 mg PO HS mental health 12/01/17
release
docusate sodium 100 mg capsule 100 mg PO DAILY Constipation 12/01/17
magnesium hydroxide 400 mg/5 mL 30 ml PO HSPRN PRN if no bm x 3 12/01/17
oral suspension days
amlodipine 10 mg tablet 10 mg PO DAILY Blood Pressure 10/14/20
divalproex 500 mg tablet,delayed 500 mg PO TID mental health 10/14/20
release
polyethylene glycol 3350 17 gram 17 grams PO DAILY Constipation 02/10/21
oral powder packet
fluoxetine 10 mg capsule 10 mg PO HS Depression 04/24/24
fluoxetine 20 mg capsule 20 mg PO HS Depression 04/24/24
haloperidol 2 mg tablet 2 mg PO BID 04/24/24
levothyroxine 112 mcg tablet 112 mcg PO DAILY Thyroid 04/24/24
sodium phosphates 19 gram-7 118 ml MD DAILYPRN PRN if dulcolax 04/24/24
gram/118 mL enema (Fleet Enema) is ineffective
Review of Systems
-
Unable to obtain full review of systems at this time due to: Dementia
History Source: Patient
Constitutional: Reports No Symptoms
EENT: Reports No Symptoms
Abdomen/GI: Reports Abdominal Pain and Vomiting (prior to admission)
: Reports No Symptoms
Musculoskeletal: Reports Other (ankle pain)
Skin: Reports No Symptoms
Neurological: Reports Weakness
Endocrine: Reports No Symptoms
Hematologic/Lymphatic: Reports No Symptoms
Vital Signs
Temp Pulse Resp BP Pulse Ox
97.5 F 78 16 144/66 95
04/26/24 07:30 04/26/24 07:30 04/26/24 07:30 04/26/24 07:30 04/26/24 08:00
Physical Exam
Exam
General: Well Developed, Well Nourished and No Apparent Distress
HEENT: Normocephalic and Anicteric
Respiratory: Clear
Cardiac: Regular Rhythm
GI: Soft, Non Distended, Tender (minimal ) and Other (RLQ dressing with FRANKIE in place with bile leak)
Musculoskeletal: No Clubbing and No Cyanosis
Skin: Warm and Dry
Neuro: Awake, Alert and AO x 3
Psych: Calm
Results
WBC 10.9 10^3/uL (4.8-10.8) H 04/26/24 06:10
Hgb 11.9 g/dL (12.0-16.0) L 04/26/24 06:10
Hct 34.9 % (37.0-47.0) L 04/26/24 06:10
MCV 93.8 fL (81.0-99.0) 04/26/24 06:10
Plt Count 178 10^3/uL (130-400) D 04/26/24 06:10
Absolute Neuts (auto) 16.4 10^3/uL (1.4-6.5) H 04/24/24 16:19
Sodium 141 mmol/L (135-145) 04/26/24 06:10
Potassium 4.1 mmol/L (3.5-5.1) 04/26/24 06:10
Chloride 103 mmol/L (98-107) 04/26/24 06:10
Carbon Dioxide 30 mmol/L (22-30) 04/26/24 06:10
BUN 34 mg/dl (7-17) H 04/26/24 06:10
Creatinine 0.7 mg/dL (0.6-1.0) 04/26/24 06:10
Calcium 8.1 mg/dl (8.4-10.2) L 04/26/24 06:10
Total Bilirubin 0.3 mg/dl (0.2-1.3) 04/26/24 06:10
AST 218 U/L (14-36) H 04/26/24 06:10
ALT 249 U/L (0-35) H 04/26/24 06:10
Alkaline Phosphatase 241 U/L (38-126) H 04/26/24 06:10
Hepatitis C Antibody Negative (Negative) 04/25/24 04:24
Diagnostic Image Results:
04/24/24- Head CT
No acute intracranial abnormality noted.
Moderate atrophy. Progressed
04/24/24 Ankle 3 view
IMPRESSION: Nondisplaced distal left fibula fracture as described above. Mild associated soft tissue swelling.
Mild dorsal midfoot osteoarthritis.
04/24/24 CT Chest/abd/pel W Iv Cont
IMPRESSION: Gallstones with secondary findings to suggesting acute cholecystitis. Clinical and laboratory correlation recommended. This could be confirmed by abdominal ultrasound.
Findings consistent with prior benign granulomatous disease. Stable
Nonobstructing right renal stone. Stable. Bilateral too small to characterize hypodense renal lesions likely benign cysts.
Moderate fecal material in the colon. Decreased
1 CR Leg Tibia/fibula Left 2 Vw
Fracture, likely spiral of the distal left fibula incompletely evaluated on this two-view study. Suggest dedicated Left Ankle radiograph for more complete evaluation
04/25/24 HIDA
Impression: Patent common bile duct.
Nonvisualization of the gallbladder suggesting cystic duct obstruction and possible acute cholecystitis. Please note, false positive studies can occur.
Prior GI Procedures:
EGD: pt denies
Colonoscopy: pt denies
Assessment / Plan
-
Pt is a 73yo with hx Parkinson's, CVA, hypercholesterolemia, hypothyroidism, bipolar, schizophrenia, dementia, renal stones with admission from SNF 04/24 with change in mental status. On admission she was noted with leukocytosis with CT concerning
for cholecystitis with stone burden and wall thickening with inflammation with + HIDA with patent CBD but non visualization concern for cystic duct obstruction. Pt went 04/25 for lap virgilio with noted necrotic gangrenous cholecystitis with localized
abscess/focal perforation, hepatic flexure and transverse colon densely adherent over infundibulum with subtotal virgilio with removal of 13 large stones. there was filling defect in cystic duct and CBD with tortuous cystic duct in close proximity to
CBD no further dissection complete and drain placed. Asked to eval for ERCP and stent as noted with increased bilious drainage from FRANKIE drain and rise in LFT's to bili 0.3, AST 218, ALT 249, alk phos 241. Pt also noted with recent fall with non
displaced left fibula fracture.
-concern for bile leak
-04/25- subtotal virgilio with noted necrotic gangrenous cholecystitis with localized abscess/focal perforation
-leukocytosis
-incresaed LFT's
-fall with fibula fracture
other medical problems:
-CVA
-parkinson
-hypercholesterolemia
-bipolar/schizophrenia
-dementia
-renal stones
PLAN:
Pt will need ERCP with stenting
plan for tomorrow with Dr. Mcgowan or Dr. Reich
cont NPO
trend LFT's
cont abx - remains on Rocephin and Flagyl
I attempted to contact family (Ivy [phone]) to review and unable reach as getting Fax machine-- will reach out to case management to see if can assist for any other number
-
-
Thank you for consultation and allowing me to participate in the patient's care. Please call the instrument and control service person GI physician during the after hours with any questions or concerns.
[2024-04-26 11:29] VITALS: BP 124/65
[2024-04-26] MEDS: TYLENOL 650 MG PO ×2 (11:53→17:17)
--- NOTE | 2024-04-26 11:58 | W.PN.GS2 ---
Today's Communication / Plan
-
-- GI consult for ERCP and stent
-- Clears for comfort, order placed to stop 4 hrs prior to procedure
-- Abx: Ceftriaxone and Flagyl, would continue for 4-7 days following control of bile leak
-- Further care per Hospitalist
Assessment / Plan
-
Patient is a 73 yo F POD#1 s/p laparoscopic subtotal fenestrating cholecystectomy for severe acute on chronic cholecystitis
AVSS
Clinically stable with normal bilirubin but elevated LFTs
FRANKIE drain with evidence of bile leak, not unsurprising given the severity of her cholecystitis and need for subtotal cholecystectomy
Plan for GI consultation for ERCP with sphincterotomy and stent to help manage bile leak. Okay for clears, would avoid dietary advancement beyond this for now until leak better controlled. Continue to monitor outputs. Continue with antibiotic
coverage.
-- GI consult for ERCP and stent
-- Clears for comfort, order placed to stop 4 hrs prior to procedure
-- Pain control: Tylenol, Toradol, and Oxycodone
-- Abx: Ceftriaxone and Flagyl, would continue for 4-7 days following control of bile leak
-- DVT: Lovenox
-- GI: PPI
-- Further care per Hospitalist
Subjective Data
-
Date of Service: April 26, 2024
No complaints. Sleeping comfortable. No worsening abdominal pain. No nausea or vomiting. Afebrile.
Objective Data
-
Intake and Output
04/25/24 04/26/24 04/27/24
06:59 06:59 06:59
Intake Total 1250 / 1250 1540 / 1540
Output Total 155 / 155
Balance 1250 / 1250 1385 / 1385
Intake:
Oral fluids 0 / 0 0 / 0
IV fluids (Total) 1000 / 1000 1340 / 1340
Normosal 200 / 200
nss 1000 / 1000
IV piggybacks 250 / 250 200 / 200
nss 250 / 250
Output:
Drain Output (Total) 155 / 155
Abdomen Serge-Jacinto 155 / 155
Other:
Number of unmeasured voidings 2
How many times incontinent 1
How many times incontinent 1 2
SATURATED amount urine
Vital Signs
Temp Pulse Resp BP Pulse Ox
97.5 F 78 16 144/66 95
04/26/24 07:30 04/26/24 07:30 04/26/24 07:30 04/26/24 07:30 04/26/24 08:00
Lab Results
04/26/24 06:10
04/26/24 06:10
Calcium 8.1 mg/dl (8.4-10.2) L 04/26/24 06:10
Phosphorus 3.3 mg/dl (2.5-4.5) 04/26/24 06:10
Magnesium 2.9 mg/dl (1.6-2.3) H 04/26/24 06:10
Total Bilirubin 0.3 mg/dl (0.2-1.3) 04/26/24 06:10
AST 218 U/L (14-36) H 04/26/24 06:10
ALT 249 U/L (0-35) H 04/26/24 06:10
Alkaline Phosphatase 241 U/L (38-126) H 04/26/24 06:10
Total Protein 5.1 g/dl (6.3-8.2) L 04/26/24 06:10
Albumin 2.7 g/dl (3.5-5.0) L 04/26/24 06:10
Physical Exam
-
Gen: NAD
Abd: soft, minimal tenderness, ND, non-peritoneal, incisions c/d/i - no erythema, ecchymosis or drainage, FRANKIE bilious
[2024-04-26] MEDS: NSS (PRESERVATIVE FREE) 10 ML IV (13:05)
[2024-04-26] MEDS: PROTONIX IV 40 MG IV (13:06)
--- NOTE | 2024-04-26 15:16 | CON.ORTHO ---
Consultation - Orthopedics
History
Ms Sun is a 73-year-old female with schizophrenia, Parkinson's disease, dementia, hypothyroid, and hyperlipidemia who was admitted for gangrenous cholecystitis and underwent cholecystectomy with left ankle pain of several days duration. She is
currently on the floor resting comfortably. She states she has been having left leg pain while she was in her care facility, however she cannot accurately pinpoint when she fell. No fall has been documented prior by her facility. She states that
she has sensation in her foot and can move it without difficulty but she does have some pain. She normally transfers but usually is confined to her wheelchair.
PE:
LLE'
Swelling without ecchymosis to lateral malleolus
Mild tenderness to palpation lateral malleolus
5/5 dorsi/plantarflexion, 5/5 EHL/FHL
Palpable pulses, toes warm and well perfused, brisk capillary refill
Sensation intact distally
XR of left ankle significant for non-displaced isolated lateral malleolus fracture
Allergies / Home Medications
Allergy/AdvReac Type Severity Reaction Status Date / Time
No Known Allergies Allergy Verified 10/14/20 19:47
�Medication �Instructions �Recorded
amantadine HCl 100 mg capsule 100 mg PO BID Mental Health 05/18/17
lorazepam 1 mg tablet 1 mg PO TID Mental Health/Anxiety 05/18/17
olanzapine 20 mg tablet (Zyprexa) 20 mg PO mental health 05/18/17
acetaminophen 325 mg tablet 650 mg PO Q4HPRN PRN mild 12/01/17
pain/fever>100f
bisacodyl 10 mg rectal suppository 10 mg VA DAILYPRN PRN if mom 12/01/17
(OneLAX Bisacodyl) ineffective
divalproex 250 mg tablet,delayed 250 mg PO mental health 12/01/17
release
docusate sodium 100 mg capsule 100 mg PO DAILY Constipation 12/01/17
magnesium hydroxide 400 mg/5 mL 30 ml PO HSPRN PRN if no bm x 3 12/01/17
oral suspension days
amlodipine 10 mg tablet 10 mg PO DAILY Blood Pressure 10/14/20
divalproex 500 mg tablet,delayed 500 mg PO TID mental health 10/14/20
release
polyethylene glycol 3350 17 gram 17 grams PO DAILY Constipation 02/10/21
oral powder packet
fluoxetine 10 mg capsule 10 mg PO HS Depression 04/24/24
fluoxetine 20 mg capsule 20 mg PO HS Depression 04/24/24
haloperidol 2 mg tablet 2 mg PO BID 04/24/24
levothyroxine 112 mcg tablet 112 mcg PO DAILY Thyroid 04/24/24
sodium phosphates 19 gram-7 118 ml VA DAILYPRN PRN if dulcolax 04/24/24
gram/118 mL enema (Fleet Enema) is ineffective
Vital Signs / Lab Results
Temp Pulse Resp BP Pulse Ox
97.7 F 60 18 124/65 95
04/26/24 11:29 04/26/24 11:29 04/26/24 11:29 04/26/24 11:29 04/26/24 11:29
04/26/24 06:10
04/26/24 06:10
Assessment / Plan
Ms Sun is a 73F with left lateral malleolus fracture. She was given a boot while in the hospital, and she should continue to wear the boot. She can weight bear as tolerated in the boot. She should wear the boot for 6 weeks, and follow up with my
office at that time for repeat XR and clinical evaluation. Please reconsult as necessary.
[2024-04-26 15:30] VITALS: BP 147/66
[2024-04-26] MEDS: LOVENOX 40 MG SC (17:17)
[2024-04-26] MEDS: DEPAKOTE (12 HR RELEASE) 250 MG PO (21:44)
[2024-04-26] MEDS: ZYPREXA 20 MG PO (21:44)
[2024-04-26] MEDS: PROZAC 20 MG PO (21:44)
[2024-04-26] MEDS: PROZAC 10 MG PO (21:44)
[2024-04-26] MEDS: ROXICODONE 5 MG PO (21:48)
[2024-04-26] MEDS: ROCEPHIN 1000 MG IV (23:17)
[2024-04-26] MEDS: FLUSH (NSS) 1 FLUSH IV ×2 (23:18)
[2024-04-26] MEDS: STERILE WATER FOR INJECTION 10 ML IV (23:18)
[2024-04-26 23:57] VITALS: BP 124/56
[2024-04-27] VITALS (9 sets, daily range): BP systolic 45–160; BP diastolic 56–99
[2024-04-27] MEDS: TYLENOL PO ×3 (01:18→23:57)
[2024-04-27] MEDS: SYNTHROID 112 MCG PO (05:39)
[2024-04-27] MEDS: TYLENOL 650 MG PO ×2 (05:39→18:23)
[2024-04-27 07:06] LABS: INR 1.14; PT 14.7 Sec (11.4-14.6)
[2024-04-27 07:13] LABS: Hematocrit 36.9 % (37.0-47.0); Hemoglobin 12.4 g/dL (12.0-16.0); Mean Corp Hgb Conc. 33.6 g/dL (33.0-37.0); Mean Corpuscular Hgb 30.8 pg (27.0-31.0); Mean Corpuscular Volume 91.6 fL (81.0-99.0); Platelet Count 231 10^3/uL (130-400); Red Blood Cell Count 4.03 10^6/uL (4.20-5.40); Red Cell Dist. Width 13.4 % (11.5-14.5); White Blood Cell Count 9.8 10^3/uL (4.8-10.8)
[2024-04-27 07:25] LABS: ALT (SGPT) 139 U/L (0-35); AST (SGOT) 41 U/L (14-36); Albumin 2.6 g/dl (3.5-5.0); Alkaline Phosphatase 183 U/L (38-126); Blood Urea Nitrogen 26 mg/dl (7-17); Calcium 8.1 mg/dl (8.4-10.2); Carbon Dioxide 31 mmol/L (22-30); Chloride 103 mmol/L (98-107); Estimated Creatinine Clearance 67 ml/min; Glucose 118 mg/dl (70-99); Magnesium 2.8 mg/dl (1.6-2.3); Phosphorus 2.8 mg/dl (2.5-4.5); Potassium 3.5 mmol/L (3.5-5.1); Sodium 143 mmol/L (135-145); Total Bilirubin 0.2 mg/dl (0.2-1.3); eGFR > 60.00
--- NOTE | 2024-04-27 07:29 | W.PN.HOSP.TC ---
Today's Communication/Plan
-
cont abx
NPO for ERCP
gentle IV hydration
pain control
Assessment / Plan
Assessment / Plan
Physical Exam
General: Comfortable and Conversant
HEENT: NormoCephalic, Anicteric, Moist mucous membranes and Atraumatic
Respiratory: Clear
Cardiac: S1/S2 and Regular Rhythm
GI: Soft, Non Tender, Non Distended and Normal Bowel Sounds Drain in place
Musculoskeletal: No Clubbing, No Cyanosis and No Edema, LLE CAM boot in place
Skin: Warm
Neuro: Awake, disoriented to time, conversant
Psych: Calm and Confused
73F dementia and schizophrenia who comes in with increasing lethargy weakness and confusion. She has significant leukocytosis and found to have gallstones and cholecystitis on CT scan. The rest of the infectious workup so far has been negative for
pneumonia or urinary tract infection. Negative COVID. Labs noted showed no other significant abnormalities. CT of the head was negative.
PLAN:
Acute cholecystitis though no abd tenderness pain was noted
-gentle IV fluids support
-cont ceftriaxone and Flagyl
-Blood cultures if spike fever
-HIDA results noted
-Surgery eval appreciated s/p laparoscopic subtotal fenestrating cholecystectomy for severe acute on chronic cholecystitis 04/25
-Bile leak noted, GI eval appreciated NPO for ERCP and possible stent placement today 04/27
Left Lower Ext Distal Fibula Fx
-ELLIS Haynes reported there was concern few days [employer] patient had fractured LLE fibula, oupt orthopedic eval was scheduled
-wheelchair bound at baseline but able to perform her own transfers
-LLE ext Ankle X-ray appreciated distal nondisplaced fibula fx
-CAM Boot placed, orthopedic eval appreciated WBAT boot to be worn for 6 wks, outpt follow up recommended
Confusion likely acute metabolic encephalopathy 2/2 cholecystitis as above
resolving
Parkinson Dz
- continue amantadine
HTN
- norvasc
Hypothyroid - tsh wnl
- continue levothyroxine
Other issues - Dementia and Schizophrenia
-Continue Depakote for now, continue fluoxetine and haloperidol
discussed with patient and patient's cousin ELLIS Haynes
I spent a total of 50 minutes with the patient or on the floor. More than 50% of this time involved counseling and coordination of care.
Anticipated Discharge: > 48 hours
Subjective/Interval History
-
Date of Service: April 27, 2024
no acute distress appears comfortable at this time.
Objective Data
-
Labs:
Laboratory Results
04/27/24
06:19
WBC 9.8
Hgb 12.4
Hct 36.9 L
Plt Count 231 D
PT 14.7 H
INR 1.14
Sodium 143
Potassium 3.5
Chloride 103
Carbon Dioxide 31 H
BUN 26 H
Creatinine 0.7
Glucose 118 H
Calcium 8.1 L
Total Bilirubin 0.2
AST 41 H
ALT 139 H
Alkaline Phosphatase 183 H
Vital Signs:
Vital Signs
Temp Pulse Resp BP Pulse Ox
98.2 F 56 18 124/56 94
04/26/24 23:57 04/26/24 23:57 04/26/24 23:57 04/26/24 23:57 04/26/24 23:57
I&O
04/26/24 04/27/24 04/28/24
06:59 06:59 06:59
Intake Total 1540 / 1540 830 / 830
Output Total 155 / 155 360 / 360
Balance 1385 / 1385 470 / 470
[2024-04-27] MEDS: COLACE 100 MG PO (07:38)
[2024-04-27] MEDS: ATIVAN 1 MG PO ×2 (07:38→21:28)
[2024-04-27] MEDS: FLAGYL 500 MG 100 IV ×3 (07:38→23:57)
[2024-04-27] MEDS: DEPAKOTE (12 HR RELEASE) 500 MG PO ×2 (07:38→18:14)
[2024-04-27] MEDS: SYMMETREL 100 MG PO ×2 (07:38→21:28)
[2024-04-27] MEDS: HALDOL 2 MG PO ×2 (07:38→21:29)
[2024-04-27] MEDS: NORVASC 10 MG PO (07:39)
[2024-04-27] MEDS: NSS (PRESERVATIVE FREE) 10 ML IV (07:39)
[2024-04-27] MEDS: PROTONIX IV 40 MG IV (07:39)
--- NOTE | 2024-04-27 09:39 | OR.RPT ---
Operative Report
Operative Report
Patient Name: Kasie Sun
: 1950
Date of Operation: 04/25/2024
Preoperative Diagnosis: Acute cholecystitis
Postoperative Diagnosis: Gangrenous cholecystitis, intra-abdominal abscess
Procedure(s):
1. Laparoscopic subtotal fenestrating cholecystectomy with cholangiogram
2. Drainage of intra-abdominal abscess
Primary Surgeon: Hi Banerjee MD
Carbon Coating Machine Operator(s):
Christiano Schreiber MD
SACHA Hong
Anesthesia: General
Estimated Blood Loss: 11 cc
Urine Output: None
Drains/Lines/Implants: 19 Irish round Wally drain in the right upper quadrant
Specimens:
1. Gallbladder and contents
HPI/Surgical Indications:
This is a 73-year-old female presenting from nursing facility with a history of altered mental status in the setting of underlying dementia and schizophrenia. Workup was concerning for cholecystitis based on CT which demonstrated wall thickening
and pericholecystic inflammation. A subsequent HIDA scan was positive confirming the diagnosis. Options for management were discussed with the patient's medical decision maker (Esperanza Ventura, cousin). Specifically, we discussed medical management
with antibiotics alone, percutaneous drainage with cholecystostomy tube, and proceeding with cholecystectomy. Given the patient's underlying dementia and schizophrenia it was felt that the patient would not tolerate a semipermanent percutaneous
cholecystostomy tube, so operative cholecystectomy was counseled. The procedure itself, as well as the risks, benefits, and alternatives was discussed. Specifically, we discussed the risk of bleeding, infection, injury to surrounding structures
(bowel, bile ducts), subtotal cholecystectomy, CBD injury, need for open procedure. We discussed that given her questionable delay in diagnosis this may be a more difficult gallbladder with the potential need for a subtotal cholecystectomy and
drain placement. Typical postprocedure recovery was discussed. All questions answered. Telephone consent was obtained.
Operative Findings: A left orthopedic boot was placed before the start of the case around her left foot/ankle for her recently diagnosed left distal fibular fracture. Necrotic, gangrenous cholecystitis with localized abscess/focal perforation. The
hepatic flexure of the transverse colon was densely adherent over the infundibulum which was carefully lysed with sharp and blunt dissection. Unable to obtain a critical view so a top-down subtotal cholecystectomy was performed with removal of
roughly 13 large triangular gallstones. The ostium of the cystic duct was identified and the cholangiocatheter was successfully passed into the ostium and a cholangiogram was performed. This showed filling of the cystic duct as well as the common
bile duct. The cystic duct was fairly tortuous and in close proximity to the common bile duct so no further dissection was undertaken. The back wall of the gallbladder was fulgurated and hemostasis was achieved. The ostium of the cystic duct as
well as the surgical field was covered with Surgiflo. A 19 Irish round Wally drain was introduced to the right lateralmost port and secured at the skin with a 2-0 nylon suture.
Procedure Description:
The patient was brought to the Operating Room. While attempting to transfer the patient to the operating room table she informed us that she had significant left ankle foot pain. We reviewed her recent imaging which demonstrated a left,
non-displaced distal fibular fracture which had not been communicated to the surgical team. After consulting orthopaedics she was placed in a boot to help splint the ankle. She was then transferred to the table and placed in the supine position with
one arm tucked. Following uneventful induction of general endotracheal anesthesia, an orogastric tube was placed. The abdomen was prepped and draped in the usual sterile fashion. A timeout was performed confirming the procedure, consent, and that
IV antibiotics were infused and sequential compression devices were confirmed to be on the right leg. The abdomen was entered using technique with a LUQ veress needle followed by a 5 mm RUQ optiview trochar. Pneumoperitoneum to 15 mmHg pressure was
obtained without difficulty and we confirmed that no injury had occurred during our entry. The patient was positioned in reverse Trendelenberg and rotated with the right side up slightly. Two 5mm trocars were then placed along the right subcostal
margin, followed by a 12mm port in the epigastrium. There is significant adhesions from the transverse colon over the gallbladder which were carefully dissected off using sharp, electrocautery and blunt dissection. The fundus of the gallbladder
was visibly necrotic and as we continued our dissection inferiorly we did enter a bile tinged abscess pocket concerning for perforated cholecystitis. We did attempt to empty the gallbladder using aspiration needle however this did not significantly
empty the gallbladder and as the wall was quite thick it was very difficult to get a good grasp of the fundus to elevated off of the underlying structures. We were eventually able to get to the infundibulum however the entire cystic triangle and
keira hepatis were densely inflamed and it was clear that we would not be able to do our standard cholecystectomy so we elected to do a top-down subtotal cholecystectomy. The gallbladder was not entered high in the fundus. The gallbladder wall was
markedly thickened. A laparoscopic bipolar energy device was used to assist with hemostasis. Leaving the back wall of the gallbladder on the liver we took off the front plate with spillage of bile and very large triangular appearing gallstones. A
4 x 4 Ray-Leisa was placed in the base of the surgical field to help with hemostasis and collecting the gallbladder contents. At this point Dr. Schreiber was free to scrub in and assist as this was a challenging case and required a skilled bankruptcy assistant.
The left lobe of the liver was also fairly large which also impeded our exposure. A specimen bag was introduced and all the visible gallstones as well as a large portion of the gallbladder was removed. We did eventually come to the infundibulum of
the gallbladder and the ostium of the cystic duct was identified. Cholangiocatheter was then passed through a stab incision in the right upper quadrant using a Kalen Conner device and then passed into the ostium. C-arm was brought into the
field and a cholangiogram was performed which demonstrated no residual filling defects and fairly normal biliary anatomy. The cystic duct however was folded in on itself and appeared to be in fairly close proximity to the common bile duct. As such
we did not feel any further dissection would be safe. In addition the tissues here were so friable that suturing would be very difficult so we elected to stop our dissection here as a subtotal fenestrating cholecystectomy. The operative field was
sprayed with Surgiflo to assist with hemostasis which was satisfactory by the end of our dissection. A 19 Irish round Wally drain was introduced through the right upper quadrant and passed across our surgical field. This was secured to the skin
using a 2-0 nylon suture. The back wall of the gallbladder was fulgurated. The right upper quadrant was flooded with's irrigation and suctioned dry. Hemostasis was reconfirmed. A second specimen bag was used to remove the remaining pieces of
gallbladder, right tach and 2 additional gallstones. The epigastric 12 mm port was closed with a 0 PDS suture using a Kalen Conner device. All remaining trocars were then removed and the pneumoperitoneum was evacuated. All trocar sites were
closed at the skin level using 4-0 Monocryl followed by Dermabond. Overall, the patient tolerated the procedure well and was taken to the Recovery Room postoperatively in stable condition.
I was the attending physician and performed the procedure with no assistance. The assistance of SACHA Hong was required due to the complexity of the procedure. During the procedure Esperanza assisted with retraction, resection, and port placement.
I was present for all portions of the case.
Hi Banerjee MD
--- NOTE | 2024-04-27 10:16 | W.PN.GS2 ---
Today's Communication / Plan
-
`
Assessment / Plan
-
Assessment patient is a 73 yo F POD#2 s/p laparoscopic subtotal fenestrating cholecystectomy for severe acute on chronic cholecystitis
AFVSS
Anticipated cystic duct stump bile leak adequately controlled with FRANKIE (no evidence of bile peritonitis)
Plan: Await timing of ERCP and stent with GI service
Given degree of FRANKIE outputs would hold on clear liquids until GI procedure
-- Abx: Ceftriaxone and Flagyl, would continue for 4-7 days following control of bile leak
-- DVT: Lovenox
-- GI: PPI
-- Further care per Hospitalist
Subjective Data
-
Date of Service: April 27, 2024
Patient seen and examined
Pleasant for our conversations
Requesting Halloween decorations to be put on windowsill
Drinking liquids
Denies abdominal pain
Objective Data
-
Intake and Output
04/26/24 04/27/24 04/28/24
06:59 06:59 06:59
Intake Total 1540 / 1540 830 / 830
Output Total 155 / 155 360 / 360
Balance 1385 / 1385 470 / 470
Intake:
Oral fluids 0 / 0 480 / 480
IV fluids (Total) 1340 / 1340 300 / 300
Normosal 200 / 200
IV piggybacks 200 / 200 50 / 50
Output:
Drain Output (Total) 155 / 155 360 / 360
Abdomen Serge-Jacinto 155 / 155 360 / 360
Other:
How many times incontinent 1
How many times incontinent 1
MODERATE amount urine
How many times incontinent 2 1
SATURATED amount urine
Vital Signs
Temp Pulse Resp BP Pulse Ox
97.6 F 53 16 128/56 92
04/27/24 07:40 04/27/24 07:40 04/27/24 07:40 04/27/24 07:40 04/27/24 07:40
Lab Results
04/27/24 06:19
04/27/24 06:19
Calcium 8.1 mg/dl (8.4-10.2) L 04/27/24 06:19
Phosphorus 2.8 mg/dl (2.5-4.5) 04/27/24 06:19
Magnesium 2.8 mg/dl (1.6-2.3) H 04/27/24 06:19
Total Bilirubin 0.2 mg/dl (0.2-1.3) 04/27/24 06:19
AST 41 U/L (14-36) H 04/27/24 06:19
ALT 139 U/L (0-35) H 04/27/24 06:19
Alkaline Phosphatase 183 U/L (38-126) H 04/27/24 06:19
Total Protein 5.0 g/dl (6.3-8.2) L 04/27/24 06:19
Albumin 2.6 g/dl (3.5-5.0) L 04/27/24 06:19
Physical Exam
-
NAD AAO to self
ABD: Soft, nondistended, no tenderness on palpation, incisions with glue dressings
FRANKIE dressing changed as there was some bilious drainage on gauze; FRANKIE bulb with bilious output
[2024-04-27] MEDS: DEPAKOTE (12 HR RELEASE) PO (11:53)
--- NOTE | 2024-04-27 14:18 | CM ---
Chart reviewed. Per surg note, awaiting timing of ERCP and stent w/ GI service.
Updated clinicals provided to [facility] via [facility]
Pt has L ankle frac. Currently wearing a boot and is instructed to use for 6 weeks and f/u for eval and x-ray per ortho
CM will cont. following for d/c needs
Plan: Return to LTC facility
[2024-04-27] MEDS: ATIVAN PO (15:09)
[2024-04-27] MEDS: LOVENOX 40 MG SC (18:14)
[2024-04-27] MEDS: PROZAC 10 MG PO (21:28)
[2024-04-27] MEDS: PROZAC 20 MG PO (21:28)
[2024-04-27] MEDS: SENOKOT-S 1 TABLET PO (21:28)
[2024-04-27] MEDS: ZYPREXA 20 MG PO (21:29)
[2024-04-27] MEDS: DEPAKOTE (12 HR RELEASE) 250 MG PO (21:29)
[2024-04-27] MEDS: D5/0.9% SODIUM CHLORIDE 1000 IV (21:35)
[2024-04-27] MEDS: FLUSH (NSS) 1 FLUSH IV ×2 (23:57)
[2024-04-27] MEDS: STERILE WATER FOR INJECTION 10 ML IV (23:58)
[2024-04-27] MEDS: ROCEPHIN 1000 MG IV (23:58)
[2024-04-28 03:46] VITALS: BP 140/79
[2024-04-28] MEDS: TYLENOL 650 MG PO ×3 (05:07→17:27)
[2024-04-28] MEDS: SYNTHROID 112 MCG PO (05:07)
[2024-04-28 06:32] LABS: Hematocrit 35.2 % (37.0-47.0); Hemoglobin 12.3 g/dL (12.0-16.0); Mean Corp Hgb Conc. 34.9 g/dL (33.0-37.0); Mean Corpuscular Hgb 31.3 pg (27.0-31.0); Mean Corpuscular Volume 89.6 fL (81.0-99.0); Mean Platelet Volume 10.6 fL (7.4-10.4); Platelet Count 277 10^3/uL (130-400); Red Blood Cell Count 3.93 10^6/uL (4.20-5.40); Red Cell Dist. Width 13.2 % (11.5-14.5); White Blood Cell Count 10.4 10^3/uL (4.8-10.8)
[2024-04-28 07:09] LABS: ALT (SGPT) 97 U/L (0-35); AST (SGOT) 39 U/L (14-36); Albumin 2.6 g/dl (3.5-5.0); Alkaline Phosphatase 157 U/L (38-126); Blood Urea Nitrogen 17 mg/dl (7-17); Carbon Dioxide 29 mmol/L (22-30); Chloride 104 mmol/L (98-107); Estimated Creatinine Clearance 78 ml/min; Glucose 198 mg/dl (70-99); Magnesium 2.1 mg/dl (1.6-2.3); Phosphorus 2.8 mg/dl (2.5-4.5); Potassium 3.6 mmol/L (3.5-5.1); Sodium 141 mmol/L (135-145); Total Bilirubin 0.3 mg/dl (0.2-1.3); eGFR > 60.00
--- NOTE | 2024-04-28 07:22 | W.PN.HOSP.TC ---
Today's Communication/Plan
-
cont abx
diet advance as per GI surgery
PT/OT
pain control
Assessment / Plan
Assessment / Plan
Physical Exam
General: Comfortable and Conversant
HEENT: NormoCephalic, Anicteric, Moist mucous membranes and Atraumatic
Respiratory: Clear
Cardiac: S1/S2 and Regular Rhythm
GI: Soft, Non Tender, Non Distended and Normal Bowel Sounds Drain in place
Musculoskeletal: No Clubbing, No Cyanosis and No Edema, LLE CAM boot in place
Skin: Warm
Neuro: AOx3
Psych: Calm some confusion noted mild
73F dementia and schizophrenia who comes in with increasing lethargy weakness and confusion. She has significant leukocytosis and found to have gallstones and cholecystitis on CT scan. The rest of the infectious workup so far has been negative for
pneumonia or urinary tract infection. Negative COVID. Labs noted showed no other significant abnormalities. CT of the head was negative.
PLAN:
Acute cholecystitis though no abd tenderness pain was noted
-gentle IV fluids support completed
-cont ceftriaxone and Flagyl
-Blood cultures if spike fever
-HIDA results noted
-Surgery eval appreciated s/p laparoscopic subtotal fenestrating cholecystectomy for severe acute on chronic cholecystitis 04/25
-Bile leak noted, GI eval appreciated ERCP performed with biliary sphincterotomy and plastic stent placed right hepatic duct 04/27
-diet gradually advanced to Full liquid as per Surgery GI
Left Lower Ext Distal Fibula Fx
-ELLIS Haynes reported there was concern few days [employer] patient had fractured LLE fibula, oupt orthopedic eval was scheduled
-wheelchair bound at baseline but able to perform her own transfers
-LLE ext Ankle X-ray appreciated distal nondisplaced fibula fx
-CAM Boot placed, orthopedic eval appreciated WBAT boot to be worn for 6 wks, outpt follow up recommended
Confusion likely acute metabolic encephalopathy 2/2 cholecystitis as above
resolving
Parkinson Dz
- continue amantadine
HTN
- norvasc
Hypothyroid - tsh wnl
- continue levothyroxine
Other issues - Dementia and Schizophrenia
-Continue Depakote for now, continue fluoxetine and haloperidol
discussed with patient and patient's cousin ELLIS Haynes
I spent a total of 50 minutes with the patient or on the floor. More than 50% of this time involved counseling and coordination of care.
Anticipated Discharge: 24 - 48 hours
Subjective/Interval History
-
Date of Service: April 28, 2024
no acute distress resting comfortably in bed. AOx3 denies pain. Overall reports feeling well. Eager to eat.
Objective Data
-
Labs:
Laboratory Results
04/28/24
06:07
WBC 10.4
Hgb 12.3
Hct 35.2 L
Plt Count 277
Sodium 141
Potassium 3.6
Chloride 104
Carbon Dioxide 29
BUN 17
Creatinine 0.6
Glucose 198 H
Calcium 8.0 L
Total Bilirubin 0.3
AST 39 H
ALT 97 H
Alkaline Phosphatase 157 H
Vital Signs:
Vital Signs
Temp Pulse Resp BP Pulse Ox
98.4 F 58 18 140/79 96
04/28/24 03:46 04/28/24 03:46 04/28/24 03:46 04/28/24 03:46 04/28/24 03:46
I&O
04/27/24 04/28/24 04/29/24
06:59 06:59 06:59
Intake Total 830 / 830 1055 / 1055
Output Total 360 / 360 350 / 350
Balance 470 / 470 705 / 705
[2024-04-28 07:41] VITALS: BP 153/74
[2024-04-28] MEDS: HALDOL 2 MG PO ×2 (08:00→22:10)
[2024-04-28] MEDS: NORVASC 10 MG PO (08:00)
[2024-04-28] MEDS: ATIVAN 1 MG PO ×3 (08:00→22:22)
[2024-04-28] MEDS: NSS (PRESERVATIVE FREE) 10 ML IV (08:01)
[2024-04-28] MEDS: PROTONIX IV 40 MG IV (08:01)
[2024-04-28] MEDS: DEPAKOTE (12 HR RELEASE) 500 MG PO ×3 (08:01→17:27)
[2024-04-28] MEDS: SYMMETREL 100 MG PO ×2 (08:01→22:10)
[2024-04-28] MEDS: COLACE 100 MG PO (08:01)
[2024-04-28] MEDS: FLAGYL 500 MG 100 IV ×3 (08:02→23:09)
--- NOTE | 2024-04-28 09:24 | W.PN.GI.CBS2 ---
Addendum entered and electronically signed by Jhoan Montoya MD 04/28/24 15:55:
I saw and examined the patient.
The APPLICATION INTEGRATION SPECIALIST or PA's note was reviewed and I agree with the note.
Comment:
This patient is a 73-year-old woman who was admitted from her nursing home unit with leukocytosis and cholecystitis. Status postcholecystectomy she had a bile duct leak. She is status post ERCP with stent and is doing well. She does not have
pain. There is some PAULA drainage but not significant.
abd: soft, nontender, drain with minimal bilious fluid
impression:
cholecystitis
bile leak
plan;
follow paula drainage
clear liquids and if tolerates and drainage down will advance tomorrow
follow lfts that are coming down
Addendum entered and electronically signed by IZZY Flanagan 04/28/24 10:35:
reviewed with Dr. Mcgowan and Dr. Worthy ok for clear diet for now with continued close follow up PAULA output
Original Note:
Today's Communication / Plan
-
doing well post ERCP
tolerating clears -- ok for GI to advance to low fat - sent message to confirm ok from surgical standpoint
LFT's improving
decreased PAULA drainage
sent message to office to arrange GI follow up in 4 weeks from SNF
remain on antibiotics
Assessment / Plan
-
Pt is a 73yo with hx Parkinson's, CVA, hypercholesterolemia, hypothyroidism, bipolar, schizophrenia, dementia, renal stones with admission from SNF 04/24 with change in mental status. On admission she was noted with leukocytosis with CT concerning
for cholecystitis with stone burden and wall thickening with inflammation with + HIDA with patent CBD but non visualization concern for cystic duct obstruction. Pt went 04/25 for lap virgilio with noted necrotic gangrenous cholecystitis with localized
abscess/focal perforation, hepatic flexure and transverse colon densely adherent over infundibulum with subtotal virgilio with removal of 13 large stones. there was filling defect in cystic duct and CBD with tortuous cystic duct in close proximity to
CBD no further dissection complete and drain placed. Asked to eval for ERCP and stent as noted with increased bilious drainage from PAULA drain and rise in LFT's to bili 0.3, AST 218, ALT 249, alk phos 241. Pt also noted with recent fall with non
displaced left fibula fracture.
Laboratory Tests
04/26/24 04/27/24 04/28/24
06:10 06:19 06:07
Total Bilirubin 0.3 0.2 0.3
AST 218 H 41 H 39 H
ALT 249 H 139 H 97 H
Alkaline Phosphatase 241 H 183 H 157 H
-concern for bile leak s/p ERCP 04/27 with leak found and plastic stent placed
-04/25- subtotal virgilio with noted necrotic gangrenous cholecystitis with localized abscess/focal perforation
-leukocytosis
-incresaed LFT's
-fall with fibula fracture
other medical problems:
-CVA
-parkinson
-hypercholesterolemia
-bipolar/schizophrenia
-dementia
-renal stones
PLAN:
doing well post ERCP
tolerating clears -- ok for GI to advance to low fat - sent message to confirm ok from surgical standpoint
LFT's improving
decreased PAULA drainage
sent message to office to arrange GI follow up in 4 weeks from [facility]
remain on antibiotics
Subjective
Subjective
Date of Service: April 28, 2024
on clear diet, denies abdominal pain 04/25 stool
Objective
Data Reviewed
Laboratory Data:
Laboratory Results
04/28/24 06:07
04/28/24 06:07
Laboratory Results
PT 14.7 Sec (11.4-14.6) H 04/27/24 06:19
INR 1.14 04/27/24 06:19
Phosphorus 2.8 mg/dl (2.5-4.5) 04/28/24 06:07
Magnesium 2.1 mg/dl (1.6-2.3) 04/28/24 06:07
Total Bilirubin 0.3 mg/dl (0.2-1.3) 04/28/24 06:07
AST 39 U/L (14-36) H 04/28/24 06:07
ALT 97 U/L (0-35) H 04/28/24 06:07
Alkaline Phosphatase 157 U/L (38-126) H 04/28/24 06:07
Vital Signs and I&O:
Vital Signs
Temp Pulse Resp BP Pulse Ox
98.0 F 59 16 153/74 98
04/28/24 07:41 04/28/24 08:00 04/28/24 07:41 04/28/24 08:00 04/28/24 07:41
I&O
04/27/24 04/28/24 04/29/24
06:59 06:59 06:59
Intake Total 830 / 830 1055 / 1055
Output Total 360 / 360 350 / 350
Balance 470 / 470 705 / 705
Physical Exam
Physical Exam
HEENT: Anicteric and Moist mucous membranes
Cardiology: Normal Sinus Rhythm
Pulmonary: Clear
GI: Soft, Non Distended, Non Tender and Other (PAULA with small amount of bile )
Extremities: No Edema
Neuro: Non Focal
--- NOTE | 2024-04-28 10:36 | W.PN.GS2 ---
Addendum entered and electronically signed by Isaias Worthy MD 04/28/24 10:52:
I saw and examined the patient.
The Door Clamp Operator's note was reviewed and I agree with the note.
Comment: FRANKIE outputs have declined since stent placement. Pt feels well, denies pain. Exam benign. Drain with serous bile tinged fluid. OK to adv diet to fulls, cont to monitor drain outputs, cont IV abx. ambulate.
Original Note:
Today's Communication / Plan
-
Continue FRANKIE and follow outputs
Assessment / Plan
-
Assessment patient is a 73 yo F POD#3 s/p laparoscopic subtotal fenestrating cholecystectomy for severe acute on chronic cholecystitis PPD #1 ERCP with stent placement
AFVSS
Anticipated cystic duct stump bile leak adequately controlled with FRANKIE and stent (no evidence of bile peritonitis)
Labs stable with normal bilirubin and mild transaminitis. No leukocytosis.
Plan:
-- Clear liquids for now, will ADAT once FRANKIE outputs decrease
-- C/W FRANKIE drain, will likely remain in place upon discharge for outpatient follow up
-- Abx: Ceftriaxone and Flagyl, would continue for 4-7 days following control of bile leak
-- DVT: Lovenox
-- GI: PPI
-- Medical management as per Hospitalist
Subjective Data
-
Date of Service: April 28, 2024
Patient seen and examined at bedside with Dr. Worthy. GI SURGICAL PHYSICIAN ASSISTANT on unit, case discussed. Patient denies n/v. Some soreness but denies pain.
Objective Data
-
Intake and Output
04/27/24 04/28/24 04/29/24
06:59 06:59 06:59
Intake Total 830 / 830 1055 / 1055
Output Total 360 / 360 350 / 350
Balance 470 / 470 705 / 705
Intake:
Oral fluids 480 / 480 50 / 50
IV fluids (Total) 300 / 300 905 / 905
nss 75 / 75
IV piggybacks 50 / 50 100 / 100
Output:
Drain Output (Total) 360 / 360 350 / 350
Abdomen Serge-Jacinto 360 / 360 130 / 130
Right 220 / 220
Other:
How many times incontinent 1
How many times incontinent 1
MODERATE amount urine
How many times incontinent 1 3
SATURATED amount urine
Vital Signs
Temp Pulse Resp BP Pulse Ox
98.0 F 59 16 153/74 98
04/28/24 07:41 04/28/24 08:00 04/28/24 07:41 04/28/24 08:00 04/28/24 07:41
Lab Results
04/28/24 06:07
04/28/24 06:07
Calcium 8.0 mg/dl (8.4-10.2) L 04/28/24 06:07
Phosphorus 2.8 mg/dl (2.5-4.5) 04/28/24 06:07
Magnesium 2.1 mg/dl (1.6-2.3) 04/28/24 06:07
Total Bilirubin 0.3 mg/dl (0.2-1.3) 04/28/24 06:07
AST 39 U/L (14-36) H 04/28/24 06:07
ALT 97 U/L (0-35) H 04/28/24 06:07
Alkaline Phosphatase 157 U/L (38-126) H 04/28/24 06:07
Total Protein 5.0 g/dl (6.3-8.2) L 04/28/24 06:07
Albumin 2.6 g/dl (3.5-5.0) L 04/28/24 06:07
Physical Exam
-
NAD AAO to self
ABD: Soft, nondistended, minimal to no tenderness on palpation, incisions with glue dressings
FRANKIE bilious tinged outputs
--- NOTE | 2024-04-28 11:07 | PTCARENOTE ---
pt wakes to name. calling out at times. confused. states no pain. left foot in boot
[2024-04-28 11:52] VITALS: BP 172/79
--- NOTE | 2024-04-28 13:50 | CM ---
Chart reviewed.
CM spoke w/ hospitalist, pt may d/c over weekend.
ERCP procedure completed
Pt has boot for L ankle fracture. Will cont. to wear for 6 weeks
CM updated Sweta/[facility] about poss weekend d/c
Sweta confirmed she will be available this weekend if pt d/c
Will need ambulance transport. Transport forms will be in chart if d/c over weekend
IMM will be reviewed, pt will be given copy
[facility]
Report:[phone]

Plan: Return to [facility] via ambulance
[2024-04-28 14:08] VITALS: BMI 28.6
[2024-04-28 14:50] VITALS: BP 108/72
[2024-04-28] MEDS: LOVENOX 40 MG SC (17:27)
[2024-04-28] MEDS: ZYPREXA 20 MG PO (22:10)
[2024-04-28] MEDS: DEPAKOTE (12 HR RELEASE) 250 MG PO (22:11)
[2024-04-28] MEDS: PROZAC 10 MG PO (22:12)
[2024-04-28] MEDS: PROZAC 20 MG PO (22:22)
[2024-04-28 23:00] VITALS: BP 145/74
[2024-04-28] MEDS: STERILE WATER FOR INJECTION 10 ML IV (23:09)
[2024-04-28] MEDS: ROCEPHIN 1000 MG IV (23:10)
[2024-04-28] MEDS: FLUSH (NSS) 3 FLUSH IV (23:13)
[2024-04-29] MEDS: FLUSH (NSS) IV ×2 (00:10→03:45)
[2024-04-29] MEDS: TYLENOL PO (00:50)
[2024-04-29] MEDS: SYNTHROID 112 MCG PO (06:45)
[2024-04-29] MEDS: TYLENOL 650 MG PO ×4 (06:45→23:39)
[2024-04-29 06:55] LABS: Hematocrit 37.1 % (37.0-47.0); Hemoglobin 12.4 g/dL (12.0-16.0); Mean Corp Hgb Conc. 33.4 g/dL (33.0-37.0); Mean Corpuscular Hgb 30.5 pg (27.0-31.0); Mean Corpuscular Volume 91.4 fL (81.0-99.0); Platelet Count 305 10^3/uL (130-400); Red Blood Cell Count 4.06 10^6/uL (4.20-5.40); Red Cell Dist. Width 13.4 % (11.5-14.5); White Blood Cell Count 12.6 10^3/uL (4.8-10.8)
[2024-04-29 07:00] VITALS: BP 160/71
[2024-04-29 07:15] LABS: ALT (SGPT) 94 U/L (0-35); AST (SGOT) 75 U/L (14-36); Albumin 2.5 g/dl (3.5-5.0); Alkaline Phosphatase 131 U/L (38-126); Blood Urea Nitrogen 8 mg/dl (7-17); Calcium 8.1 mg/dl (8.4-10.2); Carbon Dioxide 35 mmol/L (22-30); Chloride 103 mmol/L (98-107); Estimated Creatinine Clearance 78 ml/min; Glucose 112 mg/dl (70-99); Magnesium 1.9 mg/dl (1.6-2.3); Phosphorus 3.6 mg/dl (2.5-4.5); Potassium 3.7 mmol/L (3.5-5.1); Sodium 144 mmol/L (135-145); Total Bilirubin 0.2 mg/dl (0.2-1.3); Total Protein 4.8 g/dl (6.3-8.2); eGFR > 60.00
--- NOTE | 2024-04-29 07:47 | W.PN.HOSP.TC ---
Today's Communication/Plan
-
cont abx
diet drain care as per surgery
PT/OT
pain control
Assessment / Plan
Assessment / Plan
Physical Exam
General: Comfortable and Conversant
HEENT: NormoCephalic, Anicteric, Moist mucous membranes and Atraumatic
Respiratory: Clear
Cardiac: S1/S2 and Regular Rhythm
GI: Soft, Non Tender, Non Distended and Normal Bowel Sounds Drain in place
Musculoskeletal: No Clubbing, No Cyanosis and No Edema, LLE CAM boot in place
Skin: Warm
Neuro: AOx3
Psych: Calm some confusion noted mild
73F dementia and schizophrenia who comes in with increasing lethargy weakness and confusion. She has significant leukocytosis and found to have gallstones and cholecystitis on CT scan. The rest of the infectious workup so far has been negative for
pneumonia or urinary tract infection. Negative COVID. Labs noted showed no other significant abnormalities. CT of the head was negative.
PLAN:
Acute cholecystitis though no abd tenderness pain was noted
-gentle IV fluids support completed
-cont ceftriaxone and Flagyl
-Blood cultures if spike fever
-HIDA results noted
-Surgery eval appreciated s/p laparoscopic subtotal fenestrating cholecystectomy for severe acute on chronic cholecystitis 04/25
-Bile leak noted, GI eval appreciated ERCP performed with biliary sphincterotomy and plastic stent placed right hepatic duct 04/27
-diet gradually advanced to Full liquid as per Surgery GI
Left Lower Ext Distal Fibula Fx
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
-wheelchair bound at baseline but able to perform her own transfers
-LLE ext Ankle X-ray appreciated distal nondisplaced fibula fx
-CAM Boot placed, orthopedic eval appreciated WBAT boot to be worn for 6 wks, outpt follow up recommended
Confusion likely acute metabolic encephalopathy 2/2 cholecystitis as above
resolving
Parkinson Dz
- continue amantadine
HTN
- norvasc
Hypothyroid - tsh wnl
- continue levothyroxine
Other issues - Dementia and Schizophrenia
-Continue Depakote for now, continue fluoxetine and haloperidol
discussed with patient and patient's cousin ELLIS Haynes
I spent a total of 35 minutes with the patient or on the floor. More than 50% of this time involved counseling and coordination of care.
Anticipated Discharge: 24 - 48 hours
Subjective/Interval History
-
Date of Service: April 29, 2024
no acute distress, appears comfortable resting in bed. Denies new acute issues. Tolerating diet.
Objective Data
-
Labs:
Laboratory Results
04/29/24
06:43
WBC 12.6 H
Hgb 12.4
Hct 37.1
Plt Count 305
Sodium 144
Potassium 3.7
Chloride 103
Carbon Dioxide 35 H
BUN 8
Creatinine 0.6
Glucose 112 H
Calcium 8.1 L
Total Bilirubin 0.2
AST 75 H
ALT 94 H
Alkaline Phosphatase 131 H
Vital Signs:
Vital Signs
Temp Pulse Resp BP Pulse Ox
98.0 F 54 18 145/74 96
04/28/24 23:00 04/28/24 23:00 04/28/24 23:00 04/28/24 23:00 04/28/24 23:00
I&O
04/28/24 04/29/24 04/30/24
06:59 06:59 06:59
Intake Total 1055 / 1055 580 / 580
Output Total 350 / 350 25 / 25 60 / 60
Balance 705 / 705 -25 / -25 520 / 520
--- NOTE | 2024-04-29 08:35 | W.PN.GI.CBS2 ---
Today's Communication / Plan
-
advance diet as per surgery
Assessment / Plan
-
Pt is a 73yo with hx Parkinson's, CVA, hypercholesterolemia, hypothyroidism, bipolar, schizophrenia, dementia, renal stones with admission from SNF 04/24 with change in mental status. On admission she was noted with leukocytosis with CT concerning
for cholecystitis with stone burden and wall thickening with inflammation with + HIDA with patent CBD but non visualization concern for cystic duct obstruction. Pt went 04/25 for lap virgilio with noted necrotic gangrenous cholecystitis with localized
abscess/focal perforation, hepatic flexure and transverse colon densely adherent over infundibulum with subtotal virgilio with removal of 13 large stones. there was filling defect in cystic duct and CBD with tortuous cystic duct in close proximity to
CBD no further dissection complete and drain placed. Asked to eval for ERCP and stent as noted with increased bilious drainage from FRANKIE drain and rise in LFT's to bili 0.3, AST 218, ALT 249, alk phos 241. Pt also noted with recent fall with non
displaced left fibula fracture.
Laboratory Tests
04/26/24 04/27/24 04/28/24
06:10 06:19 06:07
Total Bilirubin 0.3 0.2 0.3
AST 218 H 41 H 39 H
ALT 249 H 139 H 97 H
Alkaline Phosphatase 241 H 183 H 157 H
-concern for bile leak s/p ERCP 04/27 with leak found and plastic stent placed
-04/25- subtotal virgilio with noted necrotic gangrenous cholecystitis with localized abscess/focal perforation
-leukocytosis
-incresaed LFT's
-fall with fibula fracture
other medical problems:
-CVA
-parkinson
-hypercholesterolemia
-bipolar/schizophrenia
-dementia
-renal stones
PLAN:
doing well post ERCP
advance diet as per surgery
LFT's improving
decreased FRANKIE drainage
sent message to office to arrange GI follow up in 4 weeks from [facility]
remain on antibiotics
will sign off call with questions
Subjective
Subjective
Date of Service: April 29, 2024
Pt with decreasing drain output. no pain, asking for soup last night
Objective
Data Reviewed
Laboratory Data:
Laboratory Results
04/29/24 06:43
04/29/24 06:43
Laboratory Results
PT 14.7 Sec (11.4-14.6) H 04/27/24 06:19
INR 1.14 04/27/24 06:19
Phosphorus 3.6 mg/dl (2.5-4.5) 04/29/24 06:43
Magnesium 1.9 mg/dl (1.6-2.3) 04/29/24 06:43
Total Bilirubin 0.2 mg/dl (0.2-1.3) 04/29/24 06:43
AST 75 U/L (14-36) H 04/29/24 06:43
ALT 94 U/L (0-35) H 04/29/24 06:43
Alkaline Phosphatase 131 U/L (38-126) H 04/29/24 06:43
Vital Signs and I&O:
Vital Signs
Temp Pulse Resp BP Pulse Ox
98.0 F 54 18 145/74 96
04/28/24 23:00 04/28/24 23:00 04/28/24 23:00 04/28/24 23:00 04/28/24 23:00
I&O
04/28/24 04/29/24 04/30/24
06:59 06:59 06:59
Intake Total 1055 / 1055 580 / 580
Output Total 350 / 350 25 / 25 60 / 60
Balance 705 / 705 -25 / -25 520 / 520
Physical Exam
Physical Exam
GI: Soft, Non Distended and Other (drain in place)
[2024-04-29] MEDS: PROTONIX IV 40 MG IV (08:50)
[2024-04-29] MEDS: COLACE 100 MG PO (08:50)
[2024-04-29] MEDS: NSS (PRESERVATIVE FREE) 10 ML IV (08:50)
[2024-04-29] MEDS: SYMMETREL 100 MG PO ×2 (08:50→21:45)
[2024-04-29] MEDS: NORVASC 10 MG PO (08:50)
[2024-04-29] MEDS: HALDOL 2 MG PO ×2 (08:50→21:45)
[2024-04-29] MEDS: DEPAKOTE (12 HR RELEASE) 500 MG PO ×3 (08:50→17:18)
[2024-04-29] MEDS: ATIVAN 1 MG PO ×3 (08:50→21:36)
[2024-04-29] MEDS: FLAGYL 500 MG 100 IV ×3 (08:51→23:40)
--- NOTE | 2024-04-29 10:37 | W.PN.GS2 ---
Addendum entered and electronically signed by Isaias Worthy MD 04/29/24 10:48:
I saw and examined the patient.
The Truck Guard's note was reviewed and I agree with the note.
Comment: Drain output clearing and looking more serous. Pt without complaints. Thania FLD. Pain controlled. Plan to adv to LFD, OK for DC home with drain when thania with additional abx, 5 day course. Pls call with questions
Original Note:
Today's Communication / Plan
-
Advance diet
Assessment / Plan
-
Assessment patient is a 73 yo F POD#4 s/p laparoscopic subtotal fenestrating cholecystectomy for severe acute on chronic cholecystitis PPD #2 ERCP with stent placement
AFVSS
Anticipated cystic duct stump bile leak adequately controlled with FRANKIE and stent (no evidence of bile peritonitis)
Labs stable with normal bilirubin and mild transaminitis. Mild leukocytosis.
Plan:
-- Advance to low fat diet
-- C/W FRANKIE drain, will remain in place upon discharge for outpatient follow up for removal
-- Abx: Ceftriaxone and Flagyl, would continue for 4-7 days following ERCP
-- DVT: Lovenox
-- GI: PPI
-- Medical management as per Hospitalist
Subjective Data
-
Date of Service: April 29, 2024
Patient seen and examined at bedside with Dr. Worthy. Denies pain or nausea. Tolerating FLD.
Objective Data
-
Intake and Output
04/28/24 04/29/24 04/30/24
06:59 06:59 06:59
Intake Total 1055 / 1055 580 / 580
Output Total 350 / 350 25 / 25 60 / 60
Balance 705 / 705 -25 / -25 520 / 520
Intake:
Oral fluids 50 / 50 480 / 480
IV fluids (Total) 905 / 905
nss 75 / 75
IV piggybacks 100 / 100 100 / 100
Output:
Drain Output (Total) 350 / 350 25 / 25 60 / 60
Abdomen Serge-Jacinto 130 / 130 25 / 25
Right 220 / 220
Right Serge-Jacinto 60 / 60
Other:
How many times incontinent 1
How many times incontinent 1
SMALL amount urine
How many times incontinent 1
MODERATE amount urine
How many times incontinent 3 3
SATURATED amount urine
Vital Signs
Temp Pulse Resp BP Pulse Ox
97.8 F 53 17 160/71 96
04/29/24 07:00 04/29/24 07:00 04/29/24 07:00 04/29/24 07:00 04/29/24 07:00
Lab Results
04/29/24 06:43
04/29/24 06:43
Calcium 8.1 mg/dl (8.4-10.2) L 04/29/24 06:43
Phosphorus 3.6 mg/dl (2.5-4.5) 04/29/24 06:43
Magnesium 1.9 mg/dl (1.6-2.3) 04/29/24 06:43
Total Bilirubin 0.2 mg/dl (0.2-1.3) 04/29/24 06:43
AST 75 U/L (14-36) H 04/29/24 06:43
ALT 94 U/L (0-35) H 04/29/24 06:43
Alkaline Phosphatase 131 U/L (38-126) H 04/29/24 06:43
Total Protein 4.8 g/dl (6.3-8.2) L 04/29/24 06:43
Albumin 2.5 g/dl (3.5-5.0) L 04/29/24 06:43
Physical Exam
-
NAD AAO to self
ABD: Soft, nondistended, minimal to no tenderness on palpation, incisions with glue dressings
FRANKIE bilious tinged outputs
[2024-04-29 11:12] VITALS: BP 142/68; PULSE 72; O2SAT 95
[2024-04-29 15:00] VITALS: BP 136/63
[2024-04-29] MEDS: LOVENOX 40 MG SC (17:17)
[2024-04-29] MEDS: PROZAC 20 MG PO (21:36)
[2024-04-29] MEDS: ZYPREXA 20 MG PO (21:36)
[2024-04-29] MEDS: DEPAKOTE (12 HR RELEASE) 250 MG PO (21:36)
[2024-04-29] MEDS: PROZAC 10 MG PO (21:36)
[2024-04-29 23:00] VITALS: BP 132/62
[2024-04-29] MEDS: STERILE WATER FOR INJECTION 10 ML IV (23:38)
[2024-04-29] MEDS: ROCEPHIN 1000 MG IV (23:38)
[2024-04-30] MEDS: FLUSH (NSS) IV ×2 (03:18→03:19)
[2024-04-30] MEDS: SYNTHROID 112 MCG PO (05:12)
[2024-04-30] MEDS: TYLENOL 650 MG PO ×4 (05:12→23:44)
[2024-04-30 06:19] LABS: Hematocrit 35.4 % (37.0-47.0); Hemoglobin 11.9 g/dL (12.0-16.0); Mean Corp Hgb Conc. 33.6 g/dL (33.0-37.0); Mean Corpuscular Hgb 31.8 pg (27.0-31.0); Mean Corpuscular Volume 94.7 fL (81.0-99.0); Mean Platelet Volume 10.1 fL (7.4-10.4); Platelet Count 323 10^3/uL (130-400); Red Blood Cell Count 3.74 10^6/uL (4.20-5.40); White Blood Cell Count 11.8 10^3/uL (4.8-10.8)
[2024-04-30 06:50] LABS: ALT (SGPT) 77 U/L (0-35); AST (SGOT) 39 U/L (14-36); Albumin 2.4 g/dl (3.5-5.0); Alkaline Phosphatase 131 U/L (38-126); Blood Urea Nitrogen 14 mg/dl (7-17); Carbon Dioxide 33 mmol/L (22-30); Chloride 103 mmol/L (98-107); Estimated Creatinine Clearance 67 ml/min; Glucose 170 mg/dl (70-99); Magnesium 1.9 mg/dl (1.6-2.3); Phosphorus 3.6 mg/dl (2.5-4.5); Potassium 3.7 mmol/L (3.5-5.1); Sodium 142 mmol/L (135-145); Total Bilirubin < 0.1 mg/dl (0.2-1.3); Total Protein 4.5 g/dl (6.3-8.2); eGFR > 60.00
--- NOTE | 2024-04-30 07:13 | W.PN.HOSP.TC ---
Today's Communication/Plan
-
cont pain control
PT/OT
IV abx transitioned to PO
possible discharge back to LTC Mon if tolerating and remains stable with oral abx
Assessment / Plan
Assessment / Plan
Physical Exam
General: Comfortable and Conversant
HEENT: NormoCephalic, Anicteric, Moist mucous membranes and Atraumatic
Respiratory: Clear
Cardiac: S1/S2 and Regular Rhythm
GI: Soft, Non Tender, Non Distended and Normal Bowel Sounds Drain in place
Musculoskeletal: No Clubbing, No Cyanosis and No Edema, LLE CAM boot in place
Skin: Warm
Neuro: AOx3
Psych: Calm some confusion noted mild
73F dementia and schizophrenia who comes in with increasing lethargy weakness and confusion. She has significant leukocytosis and found to have gallstones and cholecystitis on CT scan. The rest of the infectious workup so far has been negative for
pneumonia or urinary tract infection. Negative COVID. Labs noted showed no other significant abnormalities. CT of the head was negative.
PLAN:
Acute cholecystitis though no abd tenderness pain was noted
-gentle IV fluids support completed
-IV ceftriaxone and Flagyl converted to Augmentin planned for 5 more days abx 04/30/24-/05/04/24
-Blood cultures if spike fever
-HIDA results noted
-Surgery eval appreciated s/p laparoscopic subtotal fenestrating cholecystectomy for severe acute on chronic cholecystitis 04/25
-Bile leak noted, GI eval appreciated ERCP performed with biliary sphincterotomy and plastic stent placed right hepatic duct 04/27
-diet gradually advanced to Low Residue as per Surgery GI
Left Lower Ext Distal Fibula Fx
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
-wheelchair bound at baseline but able to perform her own transfers
-LLE ext Ankle X-ray appreciated distal nondisplaced fibula fx
-CAM Boot placed, orthopedic eval appreciated WBAT boot to be worn for 6 wks, outpt follow up recommended
Confusion likely acute metabolic encephalopathy 2/2 cholecystitis as above
resolving
Parkinson Dz
- continue amantadine
HTN
- norvasc
Hypothyroid - tsh wnl
- continue levothyroxine
Other issues - Dementia and Schizophrenia
-Continue Depakote for now, continue fluoxetine and haloperidol
patient's cousin ELLIS Haynes [phone] called no answer received brief update left in message including possible discharge back to Facility Wednesday if tolerating and remains stable with oral abx, call back number also left in message.
I spent a total of 35 minutes with the patient or on the floor. More than 50% of this time involved counseling and coordination of care.
Anticipated Discharge: Within 24 hours
Subjective/Interval History
-
Date of Service: April 30, 2024
No acute distress appears comfortable at rest. Pain well controlled at this time.
Objective Data
-
Labs:
Laboratory Results
04/30/24
05:03
WBC 11.8 H
Hgb 11.9 L
Hct 35.4 L
Plt Count 323
Sodium 142
Potassium 3.7
Chloride 103
Carbon Dioxide 33 H
BUN 14
Creatinine 0.7
Glucose 170 H
Calcium 8.0 L
Total Bilirubin < 0.1 L
AST 39 H
ALT 77 H
Alkaline Phosphatase 131 H
Vital Signs:
Vital Signs
Temp Pulse Resp BP Pulse Ox
97.8 F 57 16 132/62 96
04/29/24 23:00 04/29/24 23:00 04/29/24 23:00 04/29/24 23:00 04/29/24 23:00
I&O
04/29/24 04/30/24 05/01/24
06:59 06:59 06:59
Intake Total 900 / 900 0 / 0
Output Total 60 / 60 80 / 80
Balance - / - 840 / 840 -80 / -80
[2024-04-30 07:30] VITALS: BP 139/72
[2024-04-30] MEDS: FLAGYL 500 MG 100 IV (07:45)
[2024-04-30] MEDS: PROTONIX IV 40 MG IV (07:49)
[2024-04-30] MEDS: NSS (PRESERVATIVE FREE) 10 ML IV (07:50)
[2024-04-30] MEDS: FLUSH (NSS) 2 FLUSH IV (07:52)
[2024-04-30] MEDS: HALDOL 2 MG PO ×2 (08:07→21:57)
[2024-04-30] MEDS: DEPAKOTE (12 HR RELEASE) 500 MG PO ×3 (08:07→17:01)
[2024-04-30] MEDS: ATIVAN 1 MG PO ×3 (08:07→21:59)
[2024-04-30] MEDS: COLACE 100 MG PO (08:07)
[2024-04-30] MEDS: SYMMETREL 100 MG PO ×2 (08:07→21:55)
[2024-04-30] MEDS: NORVASC 10 MG PO (08:07)
[2024-04-30] MEDS: MIRALAX 17 GRAMS PO (08:18)
[2024-04-30] MEDS: AUGMENTIN 875 MG/125 MG 1 TABLET PO ×2 (13:48→21:56)
[2024-04-30] MEDS: ROXICODONE 5 MG PO ×2 (13:58→21:59)
[2024-04-30 16:00] VITALS: BP 131/64
[2024-04-30] MEDS: LOVENOX 40 MG SC (17:02)
[2024-04-30] MEDS: ZYPREXA 20 MG PO (21:55)
[2024-04-30] MEDS: PROZAC 10 MG PO (21:58)
[2024-04-30] MEDS: DEPAKOTE (12 HR RELEASE) 250 MG PO (21:58)
[2024-04-30] MEDS: PROZAC 20 MG PO (21:58)
[2024-04-30 23:30] VITALS: BP 142/66
[2024-05-01] MEDS: DILAUDID 0.5 MG IV ×3 (02:32→10:39)
--- NOTE | 2024-05-01 02:45 | W.PN.UPDATE ---
Update Note
Progress Note Update
Reported by nursing about patient presenting with shaking and c/o pain for where her FRANKIE drain is located. BP is elevated to 187 systolic and rectal temp of 101.9. She claims 10/10 pain with feeling of need to vomit. FRANKIE drainage also noted on her
bed sheets. Drainage is described as pirulent and her dressing was changed. Plan was for her to be discharged in the day so she was transitioned to Augmentin po. Will dc this and restart her IV Rocephin and IV Flagyl. Diet also downgraded. Lactic
acid and blood cultures ordered.
[2024-05-01] MEDS: OFIRMEV 100 IV (03:23)
[2024-05-01 03:31] LABS: Lactic Acid 2.9 mmol/L (0.7-2.0)
[2024-05-01 03:35] LABS: Hematocrit 39.9 % (37.0-47.0); Hemoglobin 13.6 g/dL (12.0-16.0); Mean Corp Hgb Conc. 34.1 g/dL (33.0-37.0); Mean Corpuscular Hgb 30.9 pg (27.0-31.0); Mean Corpuscular Volume 90.7 fL (81.0-99.0); Mean Platelet Volume 9.4 fL (7.4-10.4); Platelet Count 426 10^3/uL (130-400); Red Cell Dist. Width 13.8 % (11.5-14.5); White Blood Cell Count 19.6 10^3/uL (4.8-10.8)
[2024-05-01] MEDS: BENADRYL 25 MG IV (03:40)
[2024-05-01 03:43] LABS: ALT (SGPT) 72 U/L (0-35); AST (SGOT) 43 U/L (14-36); Albumin 3.2 g/dl (3.5-5.0); Alkaline Phosphatase 170 U/L (38-126); Blood Urea Nitrogen 14 mg/dl (7-17); Calcium 9.2 mg/dl (8.4-10.2); Carbon Dioxide 27 mmol/L (22-30); Chloride 102 mmol/L (98-107); Estimated Creatinine Clearance 78 ml/min; Glucose 204 mg/dl (70-99); Magnesium 1.7 mg/dl (1.6-2.3); Phosphorus 2.8 mg/dl (2.5-4.5); Potassium 4.3 mmol/L (3.5-5.1); Sodium 139 mmol/L (135-145); Total Bilirubin 0.3 mg/dl (0.2-1.3); Total Protein 5.8 g/dl (6.3-8.2); eGFR > 60.00
[2024-05-01] MEDS: ROCEPHIN 1000 MG IV (04:04)
[2024-05-01] MEDS: FLAGYL 500 MG 100 IV ×3 (04:04→20:30)
[2024-05-01] MEDS: STERILE WATER FOR INJECTION 10 ML IV (04:04)
[2024-05-01] MEDS: SYNTHROID 112 MCG PO (05:48)
[2024-05-01] MEDS: TYLENOL PO ×2 (05:51→23:53)
[2024-05-01 07:41] VITALS: BP 140/65
[2024-05-01] MEDS: PROTONIX IV 40 MG IV (07:54)
[2024-05-01] MEDS: NSS (PRESERVATIVE FREE) 10 ML IV (07:55)
[2024-05-01] MEDS: NORVASC 10 MG PO (07:55)
[2024-05-01] MEDS: SYMMETREL 100 MG PO ×2 (07:55→20:29)
--- NOTE | 2024-05-01 07:55 | W.PN.HOSP.TC ---
Today's Communication/Plan
-
Worsening leukocytosis today, along with worsening abdominal pain and distension
Repeat CT ordered by surgery and discussed results with them
Continue IV antibiotics at this time
Follow cultures
Assessment / Plan
Assessment / Plan
Physical Exam
General: Not in acute distress
HEENT: Normocephalic, Moist mucous membranes
Respiratory: CTAB
Cardiac: S1/S2 and Regular Rhythm
GI: Soft, Non Tender, Non Distended and Normal Bowel Sounds. FRANKIE Drain in place.
Musculoskeletal: No Cyanosis and No Edema, LLE CAM boot in place
Skin: Warm. Dry.
Neuro: AAOx3
Psych: Calm
Assessment/Plan
73 y/o female with past medical history of dementia and schizophrenia who came in with increasing lethargy weakness and confusion. She has significant leukocytosis and found to have gallstones and cholecystitis on CT scan. The rest of the
infectious workup so far has been negative for pneumonia or urinary tract infection. Negative COVID. Labs noted showed no other significant abnormalities. CT of the head was negative.
PLAN:
Presentation with increasing lethargy, weakness and confusion
Acute cholecystitis s/p laparoscopic subtotal fenestrating cholecystectomy for severe acute on chronic cholecystitis 04/25/24
Recurrence on 05/01/24 of Severe Abdominal Pain (following improvement initially)
Worsening Leukocytosis as of 05/01/24
-gentle IV fluids support completed
-IV ceftriaxone and Flagyl was converted to Augmentin with plan for 5 more days abx 04/30/24-/05/04/24 but then switched back to IV antibiotics due to patient's condition worsening on 04/30/24-05/01/24
overnight
-Follow FRANKIE drain cultures
-Blood cultures ordered overnight 04/30/24-05/01/24 due to worsening abdominal pain: follow blood cultures
-Repeat CT Abdomen/Pelvis ordered by surgery team
-IV fluids
-HIDA results noted
-Surgery eval appreciated s/p laparoscopic subtotal fenestrating cholecystectomy for severe acute on chronic cholecystitis 04/25
-Bile leak noted, GI eval appreciated ERCP performed with biliary sphincterotomy and plastic stent placed right hepatic duct 04/27
-diet gradually advanced to Low Residue as per Surgery GI but as of 05/01/24 changed back to NPO
-Urinalysis sent, urine culture pending as of 05/01/24
-Follow urine culture
Left Lower Extremity Distal Fibula Fracture
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
-wheelchair bound at baseline but able to perform her own transfers
-LLE ext Ankle X-ray appreciated distal nondisplaced fibula fx
-CAM Boot placed, orthopedic eval appreciated WBAT boot to be worn for 6 wks, outpt follow up recommended
Confusion likely acute metabolic encephalopathy 2/2 cholecystitis as above - resolving
Parkinson Dz
- continue amantadine
Hypertension
- norvasc
Hypothyroid - tsh wnl
- continue levothyroxine
Hyperlipidemia
Other issues - Dementia and Schizophrenia
-Continue Depakote for now, continue fluoxetine and haloperidol
DVT Prophylaxis: Lovenox
Code Status: Full Code
Total time spent today on chart review, seeing and examining the patient, speaking with patient's daughter, reviewing orders and documentation, speaking with surgery team, was 60 minutes.
Anticipated Discharge: > 48 hours
Subjective/Interval History
-
Date of Service: May 01, 2024
Patient was seen and examined. She reported significantly more abdominal pain around her FRANKIE drain site this morning, nurse reported FRANKIE drain has been draining purulent fluid.
Objective Data
-
Labs:
Laboratory Results
05/01/24
03:05
WBC 19.6 H
Hgb 13.6
Hct 39.9
Plt Count 426 H D
Sodium 139
Potassium 4.3
Chloride 102
Carbon Dioxide 27
BUN 14
Creatinine 0.6
Glucose 204 H
Calcium 9.2
Total Bilirubin 0.3
AST 43 H
ALT 72 H
Alkaline Phosphatase 170 H
Vital Signs:
Vital Signs
Temp Pulse Resp BP Pulse Ox
97.2 F 87 26 140/65 95
05/01/24 07:41 05/01/24 07:41 05/01/24 07:41 05/01/24 07:41 05/01/24 07:41
I&O
04/30/24 05/01/24 05/02/24
06:59 06:59 06:59
Intake Total 900 / 900 900 / 900
Output Total 60 / 60 120 / 120
Balance 840 / 840 780 / 780
[2024-05-01] MEDS: DEPAKOTE (12 HR RELEASE) 500 MG PO ×3 (07:56→17:13)
[2024-05-01] MEDS: HALDOL 2 MG PO ×2 (07:56→20:30)
[2024-05-01] MEDS: COLACE 100 MG PO (07:56)
[2024-05-01] MEDS: ATIVAN 1 MG PO ×3 (07:56→20:30)
[2024-05-01] MEDS: MIRALAX 17 GRAMS PO (08:09)
[2024-05-01 09:22] LABS: Lipase 213 U/L (23-300)
--- NOTE | 2024-05-01 10:41 | W.PN.GS2 ---
Today's Communication / Plan
-
CT abd/pelvis
Assessment / Plan
-
Assessment patient is a 73 yo F POD#6 s/p laparoscopic subtotal fenestrating cholecystectomy for severe acute on chronic cholecystitis PPD #4 ERCP with stent placement
VSS, Staff reports fever overnight although not documented in VS as yet.
Anticipated cystic duct stump bile leak controlled with FRANKIE and stent (no evidence of bile peritonitis), no purulent bile tinged drainage present in FRANKIE
Converted to PO Augmentin on 04/30, House VIDEO CAMERA OPERATOR called early this AM given reported fever overnight and converted back to IV abx with blood cx drawn.
Worsening leukocytosis noted
Plan:
-- Check CT abd/pelvis with Iv contrast
-- NPO for testing
-- Check UA
-- C/W FRANKIE drain, will remain in place upon discharge for outpatient follow up for removal
-- Abx: Ceftriaxone and Flagyl
-- DVT: Lovenox
-- GI: PPI
-- Medical management as per Hospitalist
Subjective Data
-
Date of Service: May 01, 2024
Patient seen and examined at bedside with Dr. Banerjee. Giancarlo n/v. Denies pain. Notes that she does not want anyone touching her left foot.
Objective Data
-
Intake and Output
04/30/24 05/01/24 05/02/24
06:59 06:59 06:59
Intake Total 900 / 900 900 / 900
Output Total 60 / 60 120 / 120
Balance 840 / 840 780 / 780
Intake:
Oral fluids 800 / 800 800 / 800
IV piggybacks 100 / 100 100 / 100
Output:
Drain Output (Total) 60 / 60 120 / 120
Right Serge-Jacinto 60 / 60 120 / 120
Other:
How many times incontinent 1
MODERATE amount urine
How many times incontinent 1 3
SATURATED amount urine
Vital Signs
Temp Pulse Resp BP Pulse Ox
97.2 F 87 26 140/65 95
05/01/24 07:41 05/01/24 07:55 05/01/24 07:41 05/01/24 07:55 05/01/24 07:41
Lab Results
05/01/24 03:05
05/01/24 03:05
Calcium 9.2 mg/dl (8.4-10.2) 05/01/24 03:05
Phosphorus 2.8 mg/dl (2.5-4.5) 05/01/24 03:05
Magnesium 1.7 mg/dl (1.6-2.3) 05/01/24 03:05
Total Bilirubin 0.3 mg/dl (0.2-1.3) 05/01/24 03:05
AST 43 U/L (14-36) H 05/01/24 03:05
ALT 72 U/L (0-35) H 05/01/24 03:05
Alkaline Phosphatase 170 U/L (38-126) H 05/01/24 03:05
Total Protein 5.8 g/dl (6.3-8.2) L D 05/01/24 03:05
Albumin 3.2 g/dl (3.5-5.0) L 05/01/24 03:05
Physical Exam
-
NAD
ABD: Soft, nondistended, tenderness on palpation just above drain site, incisions with glue dressings
FRANKIE bilious tinged outputs, clear
[2024-05-01] MEDS: TYLENOL 650 MG PO ×2 (11:42→17:13)
[2024-05-01] MEDS: NSS 1000 IV (11:43)
--- NOTE | 2024-05-01 13:49 | CM ---
Received call from Sweta in admissions at [facility] who asked for post operative report for ankle. Faxed over requested documents. Sweta confirmed that patient can return to [facility] when medically stable.
Plan: Case management will continue to follow and assist with discharge planning. Back to [facility] for SNF when stable.
[2024-05-01 15:20] VITALS: BP 131/63
--- NOTE | 2024-05-01 15:21 | VATNOTE ---
Midline attempted in pt's L arm initially, but unable to thread the wire through 2 separate vessels. This RN then tried pt's R arm, and ran into the same situation. Two vessels were able to be accessed, but the wire would not advance. Primary RN
made aware. This RN suggested an IR consult if more access is needed.
[2024-05-01 15:29] LABS: Urine Albumin Trace (Neg - Trace); Urine Bilirubin Negative (Negative); Urine Character Clear (Clear); Urine Color Amber; Urine Glucose Negative (Negative); Urine Ketone Trace (Negative); Urine Leukocyte Trace (Negative); Urine Nitrite Negative (Negative); Urine Occult Blood Negative (Negative); Urine Urobilinogen Negative (Neg - 1+)
[2024-05-01 16:14] LABS: Urine Bacteria Moderate (Negative); Urine Mucus Moderate; Urine Red Blood Cell 0-2 /HPF (0-2); Urine White Cell 0-2 /HPF (0-5)
[2024-05-01] MEDS: LOVENOX 40 MG SC (17:12)
[2024-05-01] MEDS: DEPAKOTE (12 HR RELEASE) 250 MG PO (20:29)
[2024-05-01] MEDS: PROZAC 10 MG PO (20:29)
[2024-05-01] MEDS: ZYPREXA 20 MG PO (20:29)
[2024-05-01 21:23] LABS: Lactic Acid 1.5 mmol/L (0.7-2.0)
[2024-05-01 23:45] VITALS: BP 136/74
[2024-05-01] MEDS: PROZAC 20 MG PO (23:50)
[2024-05-02] MEDS: REGLAN 10 MG IV (00:38)
[2024-05-02] MEDS: NSS 1000 IV ×2 (02:13→18:06)
[2024-05-02] MEDS: FLAGYL 500 MG 100 IV ×2 (04:00→12:40)
[2024-05-02] MEDS: SYNTHROID 112 MCG PO (05:05)
[2024-05-02] MEDS: STERILE WATER FOR INJECTION 10 ML IV (05:05)
[2024-05-02] MEDS: ROCEPHIN 1000 MG IV (05:05)
[2024-05-02] MEDS: TYLENOL 650 MG PO ×4 (05:13→23:40)
[2024-05-02 06:27] LABS: Hematocrit 34.9 % (37.0-47.0); Hemoglobin 11.4 g/dL (12.0-16.0); Mean Corp Hgb Conc. 32.7 g/dL (33.0-37.0); Mean Corpuscular Hgb 30.2 pg (27.0-31.0); Mean Corpuscular Volume 92.3 fL (81.0-99.0); Mean Platelet Volume 9.5 fL (7.4-10.4); Platelet Count 295 10^3/uL (130-400); Red Blood Cell Count 3.78 10^6/uL (4.20-5.40); Red Cell Dist. Width 14.5 % (11.5-14.5); White Blood Cell Count 16.4 10^3/uL (4.8-10.8)
[2024-05-02 06:43] LABS: ALT (SGPT) 43 U/L (0-35); AST (SGOT) 28 U/L (14-36); Albumin 2.4 g/dl (3.5-5.0); Alkaline Phosphatase 102 U/L (38-126); Blood Urea Nitrogen 13 mg/dl (7-17); Calcium 7.9 mg/dl (8.4-10.2); Carbon Dioxide 27 mmol/L (22-30); Chloride 102 mmol/L (98-107); Estimated Creatinine Clearance 78 ml/min; Glucose 153 mg/dl (70-99); Magnesium 1.6 mg/dl (1.6-2.3); Phosphorus 2.6 mg/dl (2.5-4.5); Potassium 3.9 mmol/L (3.5-5.1); Sodium 139 mmol/L (135-145); Total Bilirubin 0.2 mg/dl (0.2-1.3); Total Protein 4.8 g/dl (6.3-8.2); eGFR > 60.00
[2024-05-02 07:31] VITALS: BP 128/61
[2024-05-02] MEDS: NSS (PRESERVATIVE FREE) 10 ML IV (08:14)
[2024-05-02] MEDS: PROTONIX IV 40 MG IV (08:15)
[2024-05-02] MEDS: COLACE 100 MG PO (08:16)
[2024-05-02] MEDS: NORVASC 10 MG PO (08:16)
[2024-05-02] MEDS: HALDOL 2 MG PO ×2 (08:17→21:14)
[2024-05-02] MEDS: ATIVAN 1 MG PO ×3 (08:17→21:14)
[2024-05-02] MEDS: DEPAKOTE (12 HR RELEASE) 500 MG PO ×3 (08:17→18:05)
[2024-05-02] MEDS: SYMMETREL 100 MG PO ×2 (08:17→21:14)
[2024-05-02 09:42] LABS: % Basophils 0.5 % (0-2); % Eosinophils 1.1 % (0-6); % Immature Granulocytes 5.6 % (0-0.5); % Lymphocytes 9.4 % (20.5-51.1); % Monocytes 16.5 % (1.7-9.3); % Neutrophils 66.9 % (42.2-75.2); Absolute Basophils 0.1 10^3/uL (0-0.2); Absolute Eosinophils 0.2 10^3/uL (0-0.7); Absolute Immature Granulocytes 0.9 10^3/uL (0-0.05); Absolute Lymphocytes 1.5 10^3/uL (1.2-3.4); Absolute Monocytes 2.7 10^3/uL (0.1-0.6); Nucleated Red Blood Cells % 0.1 %
--- NOTE | 2024-05-02 09:53 | W.PN.GS2 ---
Today's Communication / Plan
-
-- Fulls
-- Trend labs
-- C/W FRANKIE drain, will remain in place upon discharge for outpatient follow up for removal
-- Abx: Ceftriaxone and Flagyl
Assessment / Plan
-
Assessment patient is a 73 yo F POD#7 s/p laparoscopic subtotal fenestrating cholecystectomy for severe acute on chronic cholecystitis PPD #5 ERCP with stent placement
Anticipated cystic duct stump bile leak controlled with FRANKIE and stent (no evidence of bile peritonitis), no purulent bile tinged drainage present in FRANKIE downtrending outputs,
AVSS
Leukocytosis noted, unsure if related to hepatobiliary cause as CT scan unrevealing for a abdominal fluid collection and drain and stent appear to be in appropriate position, as well as improving and downtrending bilirubin and LFTs. POssibly
related to antibiotic coverage as elevation appears to correlate with transition from IV to PO antibiotics. Culture of FRANKIE drain pending. Alternative sources include urinary or pulmonary, defer to hospitalist on further workup and management
Okay to advance to full liquid diet. Monitor FRANKIE drain outputs. Continue to trend labs. Follow-up infectious workup.
Plan:
-- Fulls
-- Trend labs
-- C/W FRANKIE drain, will remain in place upon discharge for outpatient follow up for removal
-- Abx: Ceftriaxone and Flagyl
-- DVT: Lovenox
-- GI: PPI
-- Medical management as per Hospitalist
Subjective Data
-
Date of Service: May 02, 2024
No complaints. No reports of worsening abdominal pain, nausea, or vomiting. No fevers. Reports from nursing of drainage around the FRANKIE site with some saturation of the dressing requiring change x 2 overnight. None currently this morning.
Objective Data
-
Intake and Output
05/01/24 05/02/24 05/03/24
06:59 06:59 06:59
Intake Total 900 / 900
Output Total 120 / 120
Balance 780 / 780 -
Intake:
Oral fluids 800 / 800
IV piggybacks 100 / 100
Output:
Drain Output (Total) 120 / 120
Right Serge-Jacinto 120 / 120
Other:
How many times incontinent 1
MODERATE amount urine
How many times incontinent 3 2
SATURATED amount urine
Vital Signs
Temp Pulse Resp BP Pulse Ox
98.3 F 84 20 128/61 90
05/02/24 07:31 05/02/24 08:16 05/02/24 07:31 05/02/24 08:16 05/02/24 07:31
Lab Results
05/02/24 05:51
05/02/24 05:51
Calcium 7.9 mg/dl (8.4-10.2) L 05/02/24 05:51
Phosphorus 2.6 mg/dl (2.5-4.5) 05/02/24 05:51
Magnesium 1.6 mg/dl (1.6-2.3) 05/02/24 05:51
Total Bilirubin 0.2 mg/dl (0.2-1.3) 05/02/24 05:51
AST 28 U/L (14-36) 05/02/24 05:51
ALT 43 U/L (0-35) H 05/02/24 05:51
Alkaline Phosphatase 102 U/L (38-126) 05/02/24 05:51
Total Protein 4.8 g/dl (6.3-8.2) L 05/02/24 05:51
Albumin 2.4 g/dl (3.5-5.0) L 05/02/24 05:51
Physical Exam
-
Gen: NAD
Abd: soft, minimal tenderness in RUQ overlying drain, ND, non-peritoneal, incisions c/d/i - no erythema, ecchymosis or drainage, FRANKIE with bilious outputs
--- NOTE | 2024-05-02 14:39 | CM ---
Case management following for discharge planning
Chart reviewed
Remains on IV antibiotics
FRANKIE drain
Plan - [facility] when medically stable
[2024-05-02 15:00] VITALS: BP 126/59
--- NOTE | 2024-05-02 15:10 | W.PN.HOSP.TC ---
Today's Communication/Plan
-
Continue antibiotics, follow cultures
Appreciate ID and surgery
Assessment / Plan
Assessment / Plan
Physical Exam
General: Not in acute distress
HEENT: Normocephalic, Moist mucous membranes
Respiratory: CTAB
Cardiac: S1/S2 and Regular Rhythm
GI: Soft, Non Tender, Non Distended and Normal Bowel Sounds. FRANKIE Drain in place.
Musculoskeletal: No Cyanosis and No Edema, LLE CAM boot in place
Skin: Warm. Dry.
Neuro: AAOx3
Psych: Calm
Assessment/Plan
73 y/o female with past medical history of dementia and schizophrenia who came in with increasing lethargy weakness and confusion. She has significant leukocytosis and found to have gallstones and cholecystitis on CT scan. The rest of the
infectious workup so far has been negative for pneumonia or urinary tract infection. Negative COVID. Labs noted showed no other significant abnormalities. CT of the head was negative.
PLAN:
Presentation with increasing lethargy, weakness and confusion
Acute cholecystitis s/p laparoscopic subtotal fenestrating cholecystectomy for severe acute on chronic cholecystitis 04/25/24
Recurrence on 05/01/24 of Severe Abdominal Pain (following improvement initially)
Worsening Leukocytosis as of 05/01/24
-gentle IV fluids support completed
-IV ceftriaxone and Flagyl was converted to Augmentin with plan for 5 more days abx 04/30/24-/05/04/24 but then switched back to IV antibiotics due to patient's condition worsening on 04/30/24-05/01/24
overnight
-Follow FRANKIE drain cultures
-Blood cultures ordered overnight 04/30/24-05/01/24 due to worsening abdominal pain: follow blood cultures
-Repeat CT Abdomen/Pelvis ordered by surgery team -- stranding/edema along gallbladder remnant
-IV fluids
-Consulted ID, appreciate their evaluation and recommendations
-Surgery eval appreciated s/p laparoscopic subtotal fenestrating cholecystectomy for severe acute on chronic cholecystitis 04/25
-Bile leak noted, GI eval appreciated ERCP performed with biliary sphincterotomy and plastic stent placed right hepatic duct 04/27
-diet gradually advanced to Low Residue as per Surgery GI but as of 05/01/24 changed back to NPO--->then to FULL LIQUIDS on 05/02/24
-Urinalysis sent, urine culture with no growth
Left Lower Extremity Distal Fibula Fracture
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
-wheelchair bound at baseline but able to perform her own transfers
-LLE ext Ankle X-ray appreciated distal nondisplaced fibula fx
-CAM Boot placed, orthopedic eval appreciated WBAT boot to be worn for 6 wks, outpt follow up recommended
Confusion likely acute metabolic encephalopathy 2/2 cholecystitis as above - resolving
Parkinson's Disease
- continue amantadine
Hypertension
- norvasc
Hypothyroid - tsh wnl
- continue levothyroxine
Hyperlipidemia
Other issues - Dementia and Schizophrenia
-Continue Depakote for now, continue fluoxetine and haloperidol
DVT Prophylaxis: Lovenox
Code Status: Full Code
Total time spent today on chart review, seeing and examining the patient, speaking with patient's cousin and ELLIS Ivy, reviewing orders and documentation, speaking with surgery team, and consulting infectious disease, was 55 minutes.
Anticipated Discharge: > 48 hours
Subjective/Interval History
-
Date of Service: May 02, 2024
Patient was seen and examined. Patient's cousin and PANFILOEnma Haynes was present in the patient's room at the time of patient encounter. Patient denied any new symptoms or complaints.
Objective Data
-
Labs:
Laboratory Results
05/02/24
05:51
WBC 16.4 H
Hgb 11.4 L
Hct 34.9 L
Plt Count 295 D
Sodium 139
Potassium 3.9
Chloride 102
Carbon Dioxide 27
BUN 13
Creatinine 0.6
Glucose 153 H
Calcium 7.9 L
Total Bilirubin 0.2
AST 28
ALT 43 H
Alkaline Phosphatase 102
Vital Signs:
Vital Signs
Temp Pulse Resp BP Pulse Ox
98.3 F 84 20 128/61 93
05/02/24 07:31 05/02/24 08:16 05/02/24 07:31 05/02/24 08:16 05/02/24 08:00
I&O
05/01/24 05/02/24 05/03/24
06:59 06:59 06:59
Intake Total 900 / 900
Output Total 120 / 120 10 10
Balance 780 / 780 -10 / -10
--- NOTE | 2024-05-02 15:21 | CON.ID ---
Consultation
-
Date/Time Consultation Requested: May 02, 2024 1150
Date/Time Consultation Performed: May 02, 2024 1520
Requesting Provider: Dr. He Calderon
Performing Provider: Dr. Barbara Tobias
Reason for Consultation: s/p virgilio with worsening sxs
Chief Complaint / Past History
Chief Complaint
Abd pain
History of Present Illness
73-year-old female with dementia, Parkinson's who presented to the hospital on April 24 from assisted facility due to confusion, lethargy, nausea, and abdominal pain. White count was 21. Patient noted to have elevated LFTs. CAT scan of
the chest abdomen pelvis showed acute cholecystitis with gallstones. HIDA scan showed cystic obstruction with acute cholecystitis. On April 25, she was taken to the OR status post laparoscopic subtotal cholecystectomy of necrotic/gangrenous
gallbladder with localized abscess/focal perforation, drainage of intra-abdominal abscess. Postop, FRANKIE drain noted to have bile output concerning for bile leak. On April 27 she underwent ERCP with finding of bile leak status post biliary stent
placement. Patient was on ceftriaxone and metronidazole with eventual resolution of the leukocytosis. However, on 04/29, wbc trended up again peaked at 19.6. On April 30, IV antibiotics transitioned to oral Augmentin. Overnight there was
reported fever although not documented. Leukocytosis worse By report patient also complaining of recurrence of abdominal pain yesterday. Today the Augmentin was changed back to ceftriaxone and metronidazole. Leukocytosis persisted.
Past History
Additional Past Medical History:
Parkinson's
Dementia
Hypothyroidism
Hypertension
Schizophrenia
CVA
Allergy History:
No Known Allergies Allergy (Verified 10/14/20 19:47)
Medications Reviewed: Yes
Current Antibiotics:
ceftriaxone
metronidazole
Social History
Tobacco: Former Smoker
Alcohol: None
Drug: None
Living: Skilled Nursing ([facility])
Family History
Family History: Not Pertinent
Review of Systems
Review of Systems
General: Negative Chills
HEENT: Negative Sinus Problems
Cardiovascular: Negative Chest Pain or Dyspnea
Respiratory: Negative Dyspnea or Cough
Gasteroenterology: Negative Nausea, Vomiting or Diarrhea
Genital / Urological: Negative Flank Pain
Neurological: Negative Dizziness
Vital Signs
Temp Pulse Resp BP Pulse Ox
98.3 F 84 20 128/61 93
05/02/24 07:31 05/02/24 08:16 05/02/24 07:31 05/02/24 08:16 05/02/24 08:00
Physical Exam
Physical Exam
Constitutional: No Acute Distress
Eyes: No Conjunctival Hemorrhage and Sclera Anicteric
Cardiovascular: Regular Rate and S1/S2
Pulmonary: Clear
Gastrointestinal: Soft, Tender (mild tenderness at FRANKIE drain site ), Non Distended and Other (FRANIKE drain with serous fluid. )
Genito-Urinary: Negative CVA Tenderness
Extremities: Other (left foot with ankle boot which pt refuses removal); Negative Edema
Neurological: Awake and Alert
Lab / Diagnostic Study Results
05/02/24 05:51
05/02/24 05:51
Abs Immat Gran (auto) 0.9 10^3/uL (0-0.05) H 05/02/24 05:51
Absolute Neuts (auto) 11.0 10^3/uL (1.4-6.5) H 05/02/24 05:51
Absolute Lymphs (auto) 1.5 10^3/uL (1.2-3.4) 05/02/24 05:51
Absolute Monos (auto) 2.7 10^3/uL (0.1-0.6) H 05/02/24 05:51
Absolute Basos (auto) 0.1 10^3/uL (0-0.2) 05/02/24 05:51
Immature Gran % 5.6 % (0-0.5) H 05/02/24 05:51
Neutrophils % 66.9 % (42.2-75.2) 05/02/24 05:51
Lymphocytes % 9.4 % (20.5-51.1) L 05/02/24 05:51
Monocytes % 16.5 % (1.7-9.3) H 05/02/24 05:51
Eosinophils % 1.1 % (0-6) 05/02/24 05:51
Basophils % 0.5 % (0-2) 05/02/24 05:51
PT 14.7 Sec (11.4-14.6) H 04/27/24 06:19
INR 1.14 04/27/24 06:19
Lactic Acid 1.5 mmol/L (0.7-2.0) 05/01/24 21:03
Ur Squamous Epith Cells 3-5 /LPF (Few) 05/01/24 15:03
Microbiology Results
Micro:
05/01/24 15:03 Urine Culture - Final
Urine NO GROWTH
05/01/24 10:09 Blood Culture - Preliminary
Blood/Venous No Growth in 24 hours- Final report to follow
05/01/24 12:34 Wound Culture - Preliminary
Serge Jacinto Gram Stain - Preliminary
05/01/24 03:05 Blood Culture - Preliminary
Blood/Venous No Growth in 24 hours- Final report to follow
04/25/24 03:59 MRSA Screen - Final
Nose No Methicillin Resistant Staphylococcus aureus isolated.
05/01/24 CT a/p: Postoperative changes of subtotal colectomy with common bile duct stent placement. There is persistent stranding/edema along the gallbladder remnant which extends along the second portion the duodenum which may be postoperative in
nature however ongoing infectious process cannot be excluded.
04/24/24 CT C/A/P:Gallstones with secondary findings to suggesting acute cholecystitis. Clinical and laboratory correlation recommended.
Assessment / Plan
# Recurrence of leukocytosis
# Acute gangrenous cholecystitis with focal perforation s/p lap virgilio 04/25
# Post-op bile leak s/p ERCP, stent placement.
- Repeat CT persistent stranding/edema along GB remnant to second portion of duodenum
-Blood cx neg to date
- pt with h/o ESBL-E. coli colonization
- DC ceftriaxone/metronidazole
-Start Zosyn IV. (Avoiding ertapenem due to drug interaction with Depakote).
- Follow wbc.
[2024-05-02] MEDS: ZOSYN 50 IV ×2 (16:22→21:14)
[2024-05-02] MEDS: LOVENOX 40 MG SC (18:05)
[2024-05-02] MEDS: ZYPREXA 20 MG PO (21:14)
[2024-05-02] MEDS: DEPAKOTE (12 HR RELEASE) 250 MG PO (21:14)
[2024-05-02] MEDS: PROZAC 20 MG PO (21:14)
[2024-05-02] MEDS: PROZAC 10 MG PO (21:14)
[2024-05-02 23:20] VITALS: BP 182/73
--- NOTE | 2024-05-03 00:42 | PTCARENOTE ---
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
[2024-05-03] MEDS: ZOSYN 50 IV ×4 (04:00→21:24)
[2024-05-03] MEDS: SYNTHROID 112 MCG PO (05:21)
[2024-05-03] MEDS: TYLENOL 650 MG PO ×4 (05:21→23:49)
[2024-05-03] MEDS: NSS 1000 IV ×2 (06:13→21:21)
[2024-05-03 06:39] LABS: Hematocrit 34.7 % (37.0-47.0); Hemoglobin 11.8 g/dL (12.0-16.0); Mean Corpuscular Hgb 31.8 pg (27.0-31.0); Mean Corpuscular Volume 93.5 fL (81.0-99.0); Platelet Count 243 10^3/uL (130-400); Red Blood Cell Count 3.71 10^6/uL (4.20-5.40); Red Cell Dist. Width 14.3 % (11.5-14.5); White Blood Cell Count 19.3 10^3/uL (4.8-10.8)
[2024-05-03 07:30] VITALS: BP 125/67
[2024-05-03] MEDS: NSS (PRESERVATIVE FREE) 10 ML IV (07:48)
[2024-05-03] MEDS: ATIVAN 1 MG PO ×3 (07:48→21:22)
[2024-05-03] MEDS: PROTONIX IV 40 MG IV (07:48)
[2024-05-03] MEDS: DEPAKOTE (12 HR RELEASE) 500 MG PO ×3 (07:49→18:01)
[2024-05-03] MEDS: SYMMETREL 100 MG PO ×2 (07:49→21:21)
[2024-05-03] MEDS: HALDOL 2 MG PO ×2 (07:49→21:21)
[2024-05-03] MEDS: COLACE 100 MG PO (07:49)
[2024-05-03 07:51] LABS: % Basophils 0.7 % (0-2); % Eosinophils 1.3 % (0-6); % Lymphocytes 9.1 % (20.5-51.1); % Monocytes 15.1 % (1.7-9.3); % Neutrophils 70.8 % (42.2-75.2); Absolute Basophils 0.1 10^3/uL (0-0.2); Absolute Eosinophils 0.3 10^3/uL (0-0.7); Absolute Immature Granulocytes 0.6 10^3/uL (0-0.05); Absolute Lymphocytes 1.8 10^3/uL (1.2-3.4); Absolute Monocytes 2.9 10^3/uL (0.1-0.6); Absolute Neutrophils 13.6 10^3/uL (1.4-6.5); Nucleated Red Blood Cells % 0 %
[2024-05-03] MEDS: NORVASC 10 MG PO (07:51)
[2024-05-03 08:46] LABS: ALT (SGPT) 28 U/L (0-35); AST (SGOT) 19 U/L (14-36); Albumin 2.2 g/dl (3.5-5.0); Alkaline Phosphatase 81 U/L (38-126); Blood Urea Nitrogen 13 mg/dl (7-17); Calcium 7.7 mg/dl (8.4-10.2); Carbon Dioxide 29 mmol/L (22-30); Chloride 103 mmol/L (98-107); Estimated Creatinine Clearance 78 ml/min; Glucose 126 mg/dl (70-99); Magnesium 1.8 mg/dl (1.6-2.3); Potassium 3.5 mmol/L (3.5-5.1); Sodium 141 mmol/L (135-145); Total Bilirubin 0.3 mg/dl (0.2-1.3); Total Protein 4.5 g/dl (6.3-8.2); eGFR > 60.00
--- NOTE | 2024-05-03 11:33 | W.PN.GS2 ---
Today's Communication / Plan
-
Adv to LRD
Abx
Trend labs
F/U ID recs
Assessment / Plan
-
Assessment patient is a 73 yo F POD#8 s/p laparoscopic subtotal fenestrating cholecystectomy for severe acute on chronic cholecystitis PPD #6 ERCP with stent placement
Anticipated cystic duct stump bile leak controlled with FRANKIE and stent (no evidence of bile peritonitis), no purulent bile tinged drainage present in FRANKIE downtrending outputs,
AVSS
New and rising leukocytosis noted, unsure if related to hepatobiliary cause as CT scan unrevealing for a abdominal fluid collection and drain and stent appear to be in appropriate position, as well as improving and downtrending bilirubin and LFTs.
Possibly related to antibiotic coverage as elevation appears to correlate with transition from IV to PO antibiotics. Culture of FRANKIE drain pending. Alternative sources include urinary or pulmonary, defer to hospitalist on further workup and
management.
UCx NGTD
Drain outputs recorded in 2 diff areas of the chart, appears to be fluctuating between around 60cc-80cc/24hr
Plan:
-- Adv to LRD
-- Trend labs
-- C/W FRANKIE drain, will remain in place upon discharge for outpatient follow up for removal
-- Abx: per ID
-- DVT: Lovenox
-- GI: PPI
-- Medical management as per Hospitalist
-- If no source is found for rising leukocytosis would repeat ERCP to ensure adequate control of leak
Subjective Data
-
Date of Service: May 03, 2024
AFVSS, feeling better each day, hungry, obdulia PO without issues, denies pain
Objective Data
-
Intake and Output
05/02/24 05/03/24 05/04/24
06:59 06:59 06:59
Intake Total 320 / 320
Output Total 70 / 70
Balance - 250 / 250
Intake:
Oral fluids 320 / 320
Output:
Drain Output (Total) 70 / 70
Abdomen Serge-Jacinto
Right Serge-Jacinto 50 / 50
Other:
How many times incontinent 2
SATURATED amount urine
Vital Signs
Temp Pulse Resp BP Pulse Ox
98.7 F 76 16 125/67 94
05/03/24 07:30 05/03/24 07:51 05/03/24 07:30 05/03/24 07:51 05/03/24 07:30
Lab Results
05/03/24 05:40
05/03/24 07:32
Calcium 7.7 mg/dl (8.4-10.2) L 05/03/24 07:32
Phosphorus 2.6 mg/dl (2.5-4.5) 05/02/24 05:51
Magnesium 1.8 mg/dl (1.6-2.3) 05/03/24 07:32
Total Bilirubin 0.3 mg/dl (0.2-1.3) 05/03/24 07:32
AST 19 U/L (14-36) 05/03/24 07:32
ALT 28 U/L (0-35) 05/03/24 07:32
Alkaline Phosphatase 81 U/L (38-126) 05/03/24 07:32
Total Protein 4.5 g/dl (6.3-8.2) L 05/03/24 07:32
Albumin 2.2 g/dl (3.5-5.0) L 05/03/24 07:32
Physical Exam
-
Gen: NAD
Abd: soft, incisions cdi, nt, drain with thin bile tinged serous fluid
--- NOTE | 2024-05-03 13:44 | W.PN.ID1 ---
Date of Service
Date of Service: May 03, 2024
Today's Communication
Add Micafungin.
Assessment / Plan
# Recurrence of leukocytosis- trending up
# Acute gangrenous cholecystitis with focal perforation s/p lap virgilio 04/25
# Post-op bile leak s/p ERCP, stent placement.
- Repeat CT persistent stranding/edema along GB remnant to second portion of duodenum
-Blood cx neg to date
- Cx from FRANKIE drain with yeasts, 2 morphotypes, and mixed skin margarita. Cx from FRANKIE drain may be contaminant and not reflect cx in body fluid.
-Add empiric Micafungin
- Continue Zosyn (d2) (h/o ESBL-E. coli colonization)
- Follow wbc.
# Additional Past Medical History:
Parkinson's
Dementia
Hypothyroidism
Hypertension
Schizophrenia
CVA
Chief Complaint
-: Leukocytosis
Subjective / Review of Systems
No complaints. No abd pain. No diarrhea.
Vital Signs / Physical Exam
Vital Signs
Vital Signs
Temp Pulse Resp BP Pulse Ox
98.7 F 76 16 125/67 94
05/03/24 07:30 05/03/24 07:51 05/03/24 07:30 05/03/24 07:51 05/03/24 07:30
Physical Exam
Constitutional: No Acute Distress and Comfortable
Cardiovascular: Regular Rate and S1/S2
Pulmonary: Clear
Gastrointestinal: Non Tender, Non Distended and Other (FRANKIE drain with clear greenish fluid)
Genito-Urinary: Negative CVA Tenderness
Neurological: Awake and Alert
Objective Data
Lab Data
Lab Results
05/03/24 05:40
05/03/24 07:32
PT 14.7 Sec (11.4-14.6) H 04/27/24 06:19
INR 1.14 04/27/24 06:19
Estimated Creat Clear 78 ml/min 05/03/24 07:32
Lactic Acid 1.5 mmol/L (0.7-2.0) 05/01/24 21:03
Total Bilirubin 0.3 mg/dl (0.2-1.3) 05/03/24 07:32
AST 19 U/L (14-36) 05/03/24 07:32
ALT 28 U/L (0-35) 05/03/24 07:32
Alkaline Phosphatase 81 U/L (38-126) 05/03/24 07:32
Most recent labs reviewed.
Micro Results:
05/01/24 12:34 Wound Culture - Preliminary
Serge Jacinto Yeast
Gram Stain - Preliminary
05/01/24 10:09 Blood Culture - Preliminary
Blood/Venous No Growth in 48 hours- Final report to follow
05/01/24 03:05 Blood Culture - Preliminary
Blood/Venous No Growth in 48 hours- Final report to follow
05/01/24 15:03 Urine Culture - Final
Urine NO GROWTH
04/25/24 03:59 MRSA Screen - Final
Nose No Methicillin Resistant Staphylococcus aureus isolated.
05/01/24 CT a/p: Postoperative changes of subtotal colectomy with common bile duct stent placement. There is persistent stranding/edema along the gallbladder remnant which extends along the second portion the duodenum which may be postoperative in
nature however ongoing infectious process cannot be excluded.
04/24/24 CT C/A/P:Gallstones with secondary findings to suggesting acute cholecystitis. Clinical and laboratory correlation recommended.
[2024-05-03] MEDS: MYCAMINE 105 MG IV (15:07)
[2024-05-03 16:00] VITALS: BP 143/60
--- NOTE | 2024-05-03 17:29 | W.PN.HOSP.TC ---
Today's Communication/Plan
-
Continue antibiotics and antifungal, appreciate ID and surgery recommendations
Assessment / Plan
Assessment / Plan
Physical Exam
General: Not in acute distress
HEENT: Normocephalic, Moist mucous membranes
Respiratory: CTAB
Cardiac: S1/S2 and Regular Rhythm
GI: Soft, Non Tender, Non Distended and Normal Bowel Sounds. FRANKIE Drain in place.
Musculoskeletal: No Cyanosis and No Edema, LLE CAM boot in place
Skin: Warm. Dry.
Neuro: AAOx3
Psych: Calm
Assessment/Plan
73 y/o female with past medical history of dementia and schizophrenia who came in with increasing lethargy weakness and confusion. She has significant leukocytosis and found to have gallstones and cholecystitis on CT scan. The rest of the
infectious workup so far has been negative for pneumonia or urinary tract infection. Negative COVID. Labs noted showed no other significant abnormalities. CT of the head was negative.
PLAN:
Presentation with increasing lethargy, weakness and confusion
Acute cholecystitis s/p laparoscopic subtotal fenestrating cholecystectomy for severe acute on chronic cholecystitis 04/25/24
Recurrence on 05/01/24 of Severe Abdominal Pain (following improvement initially)
Worsened Leukocytosis
-gentle IV fluids support completed
-IV ceftriaxone and Flagyl was converted to Augmentin with plan for 5 more days abx 04/30/24-/05/04/24 but then switched back to IV antibiotics due to patient's condition worsening on 04/30/24-05/01/24
overnight
-FRANKIE drain cultures growing yeast
-Blood cultures ordered overnight 04/30/24-05/01/24 due to worsening abdominal pain: follow blood cultures - NGTD
-Repeat CT Abdomen/Pelvis recently ordered by surgery team -- stranding/edema along gallbladder remnant
-IV fluids
-Consulted ID, appreciate their evaluation and recommendations
-Surgery eval appreciated s/p laparoscopic subtotal fenestrating cholecystectomy for severe acute on chronic cholecystitis 04/25
-Bile leak noted, GI eval appreciated ERCP performed with biliary sphincterotomy and plastic stent placed right hepatic duct 04/27
-If no source is found for rising leukocytosis would repeat ERCP to ensure adequate control of leak, as per surgery
-Now upgraded to Low Fat Diet
-Urinalysis sent, urine culture with no growth
-Continue Zosyn, and Micafungin added on 05/03/24
Left Lower Extremity Distal Fibula Fracture
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
-wheelchair bound at baseline but able to perform her own transfers
-LLE ext Ankle X-ray appreciated distal nondisplaced fibula fx
-CAM Boot placed, orthopedic eval appreciated WBAT boot to be worn for 6 wks, outpt follow up recommended
Confusion likely acute metabolic encephalopathy 2/2 cholecystitis as above - resolving
Parkinson's Disease
- continue amantadine
Hypertension
- norvasc
Hypothyroid - tsh wnl
- continue levothyroxine
Hyperlipidemia
Other issues - Dementia and Schizophrenia
-Continue Depakote for now, continue fluoxetine and haloperidol
DVT Prophylaxis: Lovenox
Code Status: Full Code
Anticipated Discharge: > 48 hours
Subjective/Interval History
-
Date of Service: May 03, 2024
Patient was seen and examined. She appeared to be doing better today, more alert and interactive.
Objective Data
-
Labs:
Laboratory Results
05/03/24 05/03/24
05:40 07:32
WBC 19.3 H
Hgb 11.8 L
Hct 34.7 L
Plt Count 243
Sodium Cancelled 141
Potassium Cancelled 3.5
Chloride Cancelled 103
Carbon Dioxide Cancelled 29
BUN Cancelled 13
Creatinine Cancelled 0.5 L
Glucose Cancelled 126 H
Calcium Cancelled 7.7 L
Total Bilirubin Cancelled 0.3
AST Cancelled 19
ALT Cancelled 28
Alkaline Phosphatase Cancelled 81
Vital Signs:
Vital Signs
Temp Pulse Resp BP Pulse Ox
98.3 F 98 16 143/60 94
05/03/24 16:00 05/03/24 16:00 05/03/24 16:00 05/03/24 16:00 05/03/24 16:00
I&O
05/02/24 05/03/24 05/04/24
06:59 06:59 06:59
Intake Total 320 / 320
Output Total 70 / 70
Balance - 250 / 250
[2024-05-03] MEDS: LOVENOX 40 MG SC (18:01)
[2024-05-03] MEDS: PROZAC 20 MG PO (21:22)
[2024-05-03] MEDS: PROZAC 10 MG PO (21:22)
[2024-05-03] MEDS: DEPAKOTE (12 HR RELEASE) 250 MG PO (21:22)
[2024-05-03] MEDS: ZYPREXA 20 MG PO (21:22)
[2024-05-03 23:55] VITALS: BP 142/66
[2024-05-04] MEDS: ZOSYN 50 IV ×4 (03:43→23:49)
[2024-05-04] MEDS: SYNTHROID 112 MCG PO (05:26)
[2024-05-04] MEDS: TYLENOL 650 MG PO ×4 (05:26→23:50)
[2024-05-04 06:45] LABS: % Basophils 0.5 % (0-2); % Eosinophils 1.7 % (0-6); % Immature Granulocytes 2.2 % (0-0.5); % Lymphocytes 7.2 % (20.5-51.1); % Monocytes 11.7 % (1.7-9.3); % Neutrophils 76.7 % (42.2-75.2); Absolute Basophils 0.1 10^3/uL (0-0.2); Absolute Eosinophils 0.3 10^3/uL (0-0.7); Absolute Immature Granulocytes 0.4 10^3/uL (0-0.05); Absolute Lymphocytes 1.3 10^3/uL (1.2-3.4); Absolute Monocytes 2.2 10^3/uL (0.1-0.6); Absolute Neutrophils 14.1 10^3/uL (1.4-6.5); Hematocrit 33.9 % (37.0-47.0); Hemoglobin 11.5 g/dL (12.0-16.0); Mean Corp Hgb Conc. 33.9 g/dL (33.0-37.0); Mean Corpuscular Volume 94.4 fL (81.0-99.0); Mean Platelet Volume 9.8 fL (7.4-10.4); Nucleated Red Blood Cells % 0 %; Platelet Count 280 10^3/uL (130-400); Red Blood Cell Count 3.59 10^6/uL (4.20-5.40); Red Cell Dist. Width 14.1 % (11.5-14.5); White Blood Cell Count 18.4 10^3/uL (4.8-10.8)
[2024-05-04 07:03] LABS: ALT (SGPT) 25 U/L (0-35); AST (SGOT) 24 U/L (14-36); Albumin 2.6 g/dl (3.5-5.0); Alkaline Phosphatase 99 U/L (38-126); Blood Urea Nitrogen 9 mg/dl (7-17); Carbon Dioxide 29 mmol/L (22-30); Chloride 105 mmol/L (98-107); Estimated Creatinine Clearance 78 ml/min; Glucose 135 mg/dl (70-99); Potassium 3.2 mmol/L (3.5-5.1); Sodium 143 mmol/L (135-145); Total Bilirubin 0.3 mg/dl (0.2-1.3); eGFR > 60.00
[2024-05-04 08:17] VITALS: BP 144/69
[2024-05-04] MEDS: ATIVAN 1 MG PO ×3 (08:56→23:49)
[2024-05-04] MEDS: COLACE 100 MG PO (08:57)
[2024-05-04] MEDS: NORVASC 10 MG PO (08:57)
[2024-05-04] MEDS: HALDOL 2 MG PO ×2 (08:57→21:53)
[2024-05-04] MEDS: PROTONIX 40 MG PO (08:58)
[2024-05-04] MEDS: SYMMETREL 100 MG PO ×2 (08:59→21:53)
[2024-05-04] MEDS: DEPAKOTE (12 HR RELEASE) 500 MG PO ×3 (09:00→17:26)
--- NOTE | 2024-05-04 09:48 | W.PN.HOSP.TC ---
Today's Communication/Plan
-
Continue antibiotics, antifungal and new diet
Assessment / Plan
Assessment / Plan
Physical Exam
General: Not in acute distress
HEENT: Normocephalic, Moist mucous membranes
Respiratory: CTAB
Cardiac: S1/S2 and Regular Rhythm
GI: Soft, Non Tender, Non Distended and Normal Bowel Sounds. FRANKIE Drain in place.
Musculoskeletal: No Cyanosis and No Edema, LLE CAM boot in place
Skin: Warm. Dry.
Neuro: AAOx3
Psych: Calm
Assessment/Plan
73 y/o female with past medical history of dementia and schizophrenia who came in with increasing lethargy weakness and confusion. She has significant leukocytosis and found to have gallstones and cholecystitis on CT scan. The rest of the
infectious workup so far has been negative for pneumonia or urinary tract infection. Negative COVID. Labs noted showed no other significant abnormalities. CT of the head was negative.
PLAN:
Presentation with increasing lethargy, weakness and confusion
Acute cholecystitis s/p laparoscopic subtotal fenestrating cholecystectomy for severe acute on chronic cholecystitis 04/25/24
Recurrence on 05/01/24 of Severe Abdominal Pain (following improvement initially)
Worsened Leukocytosis
History of ESBL-E. coli colonization)
-gentle IV fluids support completed
-IV ceftriaxone and Flagyl was converted to Augmentin with plan for 5 more days abx 04/30/24-/05/04/24 but then switched back to IV antibiotics due to patient's condition worsening on 04/30/24-05/01/24
overnight
-FRANKIE drain cultures growing yeast
-Blood cultures ordered overnight 04/30/24-05/01/24 due to worsening abdominal pain: follow blood cultures - NGTD
-Repeat CT Abdomen/Pelvis recently ordered by surgery team -- stranding/edema along gallbladder remnant
-IV fluids
-Consulted ID, appreciate their evaluation and recommendations
-Surgery eval appreciated s/p laparoscopic subtotal fenestrating cholecystectomy for severe acute on chronic cholecystitis 04/25
-Bile leak noted, GI eval appreciated ERCP performed with biliary sphincterotomy and plastic stent placed right hepatic duct 04/27
-If no source is found for rising leukocytosis would repeat ERCP to ensure adequate control of leak, as per surgery
-Low Fat Diet
-Urinalysis sent, urine culture with no growth
-Continue Zosyn, and Micafungin added on 05/03/24
Hypokalemia
-Potassium replaced
-Check magnesium
-Monitor BMP
Left Lower Extremity Distal Fibula Fracture
-ELLIS Haynes reported there was concern few days [employer] patient had fractured LLE fibula, oupt orthopedic eval was scheduled
-wheelchair bound at baseline but able to perform her own transfers
-LLE ext Ankle X-ray appreciated distal nondisplaced fibula fx
-CAM Boot placed, orthopedic eval appreciated WBAT boot to be worn for 6 wks, outpt follow up recommended
Confusion likely acute metabolic encephalopathy 2/2 cholecystitis as above - resolving
Parkinson's Disease
- continue amantadine
Hypertension
- norvasc
Hypothyroid - tsh wnl
- continue levothyroxine
Hyperlipidemia
Other issues - Dementia and Schizophrenia
-Continue Depakote for now, continue fluoxetine and haloperidol
DVT Prophylaxis: Lovenox
Diet: IDDSI 5 with thin liquids (as per speech on 05/04/24)
Code Status: Full Code
Anticipated Discharge: > 48 hours
Subjective/Interval History
-
Date of Service: May 04, 2024
Patient was seen and examined. Per patient's nurse, she was coughing thin liquids.
Objective Data
-
Labs:
Laboratory Results
05/04/24
05:57
WBC 18.4 H
Hgb 11.5 L
Hct 33.9 L
Plt Count 280
Sodium 143
Potassium 3.2 L
Chloride 105
Carbon Dioxide 29
BUN 9
Creatinine 0.5 L
Glucose 135 H
Calcium 8.0 L
Total Bilirubin 0.3
AST 24
ALT 25
Alkaline Phosphatase 99
Vital Signs:
Vital Signs
Temp Pulse Resp BP Pulse Ox
99.5 F 72 18 144/69 95
05/04/24 08:17 05/04/24 08:17 05/04/24 08:17 05/04/24 08:17 05/04/24 08:17
I&O
05/03/24 05/04/24 05/05/24
06:59 06:59 06:59
Intake Total 320 / 320 360 / 360
Output Total 70 / 70
Balance 250 / 250 360 / 360
--- NOTE | 2024-05-04 10:47 | W.PN.GS2 ---
Today's Communication / Plan
-
`
Assessment / Plan
-
Assessment patient is a 73 yo F POD#9 s/p laparoscopic subtotal fenestrating cholecystectomy for severe acute on chronic cholecystitis PPD #7 ERCP with stent placement
Anticipated cystic duct stump bile leak controlled with FRANKIE and stent (no evidence of bile peritonitis)
AFVSS
maintain FRANKIE
Leukocytosis may be related to subtotal cholecystectomy with portions of gallbladder wall adherent to liver - CT imaging without drainable abscess or collection but there are residual postop inflammatory changes; if is the case it should slowly
improve with supportive care and antibiotic coverage
Plan:
--Low-fat diet as tolerated
-- C/W FRANKIE drain
-- Abx: per ID -broad-spectrum coverage with Zosyn and micafungin added
-- DVT: Lovenox
-- GI: PPI
Subjective Data
-
Date of Service: May 04, 2024
Patient seen and examined
Just had breakfast, denies nausea
Still has some abdominal tenderness/discomfort in right side
Objective Data
-
Intake and Output
05/03/24 05/04/24 05/05/24
06:59 06:59 06:59
Intake Total 320 / 320 360 / 360
Output Total 70 / 70
Balance 250 / 250 360 / 360
Intake:
Oral fluids 320 / 320 360 / 360
Output:
Drain Output (Total) 70 / 70
Abdomen Serge-Jacinto 20 / 20
Right Serge-Jacinto 50 / 50
Other:
Number of approximated MODERATE 1
amounts of urine
Number of approximated LARGE 1
amounts of urine
How many times incontinent 3
SATURATED amount urine
Vital Signs
Temp Pulse Resp BP Pulse Ox
99.5 F 72 18 144/69 95
05/04/24 08:17 05/04/24 08:17 05/04/24 08:17 05/04/24 08:17 05/04/24 08:17
Lab Results
05/04/24 05:57
05/04/24 05:57
Calcium 8.0 mg/dl (8.4-10.2) L 05/04/24 05:57
Phosphorus 2.6 mg/dl (2.5-4.5) 05/02/24 05:51
Magnesium 2.0 mg/dl (1.6-2.3) 05/04/24 05:57
Total Bilirubin 0.3 mg/dl (0.2-1.3) 05/04/24 05:57
AST 24 U/L (14-36) 05/04/24 05:57
ALT 25 U/L (0-35) 05/04/24 05:57
Alkaline Phosphatase 99 U/L (38-126) 05/04/24 05:57
Total Protein 5.0 g/dl (6.3-8.2) L 05/04/24 05:57
Albumin 2.6 g/dl (3.5-5.0) L 05/04/24 05:57
Physical Exam
-
NAD, AAO
ABD: Soft, nondistended, tenderness to palpation right upper quadrant
FRANKIE with slight bilious tinged and some exudate/purulence
--- NOTE | 2024-05-04 11:56 | CM ---
Anticipated DC > 48 hours
PT recommends SNF; Bed ON Hold @ [facility]. Updated clinicals sent today
Plan: Return to [facility] when medically stable
--- NOTE | 2024-05-04 12:20 | PTOTSP ---
Speech Therapy Evaluation:
Pt presents with mild-moderate oral stage dysphagia and suspected mild pharyngeal stage dysphagia. 1x weak and delayed cough observed with soft and bite sized solids. Pt expectorated regular solid due to difficulty with mastication. No s/sx of
aspiration with puree or thin liquids via cup. Pt is at an increased risk of aspiration due to Dementia, Parkinson's, prior CVA, and history of dysphagia.
Recommend:
1. IDDI Level 5 (soft and bite sized) and thin liquids
2. Medications whole in puree
3. Assistance/supervision with PO intake
4. General aspiration precautions
5. May consider VSE if s/sx of aspiration persist
6. Continued ST at acute care
--- NOTE | 2024-05-04 13:37 | PTCARENOTE ---
patient with right side abd discomfort, FRANKIE drain with bilious/purulent/bloody drainage, tolerating diet, some coughing with water this am, turns with ma assist x2, CAM boot on left leg, vss, will continue to monitor.
[2024-05-04] MEDS: MYCAMINE 105 MG IV (14:28)
--- NOTE | 2024-05-04 14:58 | W.PN.ID1 ---
Date of Service
Date of Service: May 04, 2024
Today's Communication
Continue micafungin and Zsoyn for now.
Assessment / Plan
# Recurrence of leukocytosis- slightly improved today
# Acute gangrenous cholecystitis with focal perforation s/p lap virgilio 04/25
# Post-op bile leak s/p ERCP, stent placement.
# Dysphagia
- Repeat CT persistent stranding/edema along GB remnant to second portion of duodenum
-Blood cx neg to date
- Cx from FRANKIE drain with yeasts, 2 morphotypes, and mixed skin margarita. Cx from FRANKIE drain may be contaminant and not reflect cx in body fluid.
- Continue Micafungin (d2) pending identification of yeast
- Continue Zosyn (d3) (h/o ESBL-E. coli colonization)
- Follow wbc.
- Aspiration precaution.
# Additional Past Medical History:
Parkinson's
Dementia
Hypothyroidism
Hypertension
Schizophrenia
CVA
Chief Complaint
-: Leukocytosis
Subjective / Review of Systems
No complaints.
Vital Signs / Physical Exam
Vital Signs
Vital Signs
Temp Pulse Resp BP Pulse Ox
99.5 F 72 18 144/69 95
05/04/24 08:17 05/04/24 08:17 05/04/24 08:17 05/04/24 08:17 05/04/24 09:00
Physical Exam
Constitutional: No Acute Distress and Comfortable
Pulmonary: Other (Decreased BS at bases)
Gastrointestinal: Soft, Non Tender and Non Distended
Neurological: Awake and Alert
Objective Data
Lab Data
Lab Results
05/04/24 05:57
05/04/24 05:57
PT 14.7 Sec (11.4-14.6) H 04/27/24 06:19
INR 1.14 04/27/24 06:19
Estimated Creat Clear 78 ml/min 05/04/24 05:57
Lactic Acid 1.5 mmol/L (0.7-2.0) 05/01/24 21:03
Total Bilirubin 0.3 mg/dl (0.2-1.3) 05/04/24 05:57
AST 24 U/L (14-36) 05/04/24 05:57
ALT 25 U/L (0-35) 05/04/24 05:57
Alkaline Phosphatase 99 U/L (38-126) 05/04/24 05:57
Most recent labs reviewed.
Micro Results:
05/01/24 10:09 Blood Culture - Preliminary
Blood/Venous No Growth in 72 hours- Final report to follow
05/01/24 03:05 Blood Culture - Preliminary
Blood/Venous No Growth in 72 hours- Final report to follow
05/01/24 12:34 Wound Culture - Preliminary
Serge Jacinto Yeast
Gram Stain - Preliminary
05/01/24 15:03 Urine Culture - Final
Urine NO GROWTH
04/25/24 03:59 MRSA Screen - Final
Nose No Methicillin Resistant Staphylococcus aureus isolated.
05/01/24 CT a/p: Postoperative changes of subtotal colectomy with common bile duct stent placement. There is persistent stranding/edema along the gallbladder remnant which extends along the second portion the duodenum which may be postoperative in
nature however ongoing infectious process cannot be excluded.
04/24/24 CT C/A/P:Gallstones with secondary findings to suggesting acute cholecystitis. Clinical and laboratory correlation recommended.
[2024-05-04 15:26] VITALS: BP 124/71
[2024-05-04] MEDS: KCL 40 MEQ PO (16:32)
[2024-05-04] MEDS: NSS 1000 IV (16:41)
[2024-05-04] MEDS: LOVENOX 40 MG SC (17:26)
[2024-05-04 21:43] LABS: Blood Urea Nitrogen 10 mg/dl (7-17); Calcium 7.9 mg/dl (8.4-10.2); Carbon Dioxide 28 mmol/L (22-30); Chloride 106 mmol/L (98-107); Estimated Creatinine Clearance 78 ml/min; Glucose 182 mg/dl (70-99); Potassium 3.5 mmol/L (3.5-5.1); Sodium 139 mmol/L (135-145); eGFR > 60.00
[2024-05-04] MEDS: ZYPREXA 20 MG PO (21:54)
[2024-05-04] MEDS: PROZAC 10 MG PO (21:54)
[2024-05-04] MEDS: DEPAKOTE (12 HR RELEASE) 250 MG PO (21:55)
[2024-05-04] MEDS: PROZAC 20 MG PO (21:55)
[2024-05-04 23:34] VITALS: BP 126/72
[2024-05-04] MEDS: FLUSH (NSS) 1 FLUSH IV (23:50)
[2024-05-05] MEDS: ZOSYN 50 IV ×4 (04:06→22:18)
[2024-05-05] MEDS: NSS 1000 IV (06:30)
[2024-05-05] MEDS: SYNTHROID 112 MCG PO (06:33)
[2024-05-05] MEDS: TYLENOL 650 MG PO ×4 (06:33→23:01)
[2024-05-05 06:35] LABS: % Basophils 0.4 % (0-2); % Eosinophils 1.4 % (0-6); % Immature Granulocytes 1.7 % (0-0.5); % Lymphocytes 12.4 % (20.5-51.1); % Monocytes 11.5 % (1.7-9.3); % Neutrophils 72.6 % (42.2-75.2); Absolute Basophils 0.1 10^3/uL (0-0.2); Absolute Eosinophils 0.2 10^3/uL (0-0.7); Absolute Immature Granulocytes 0.3 10^3/uL (0-0.05); Absolute Lymphocytes 1.8 10^3/uL (1.2-3.4); Absolute Monocytes 1.6 10^3/uL (0.1-0.6); Absolute Neutrophils 10.4 10^3/uL (1.4-6.5); Hematocrit 30.3 % (37.0-47.0); Hemoglobin 10.1 g/dL (12.0-16.0); Mean Corp Hgb Conc. 33.3 g/dL (33.0-37.0); Mean Corpuscular Volume 92.9 fL (81.0-99.0); Mean Platelet Volume 9.9 fL (7.4-10.4); Nucleated Red Blood Cells % 0 %; Platelet Count 296 10^3/uL (130-400); Red Blood Cell Count 3.26 10^6/uL (4.20-5.40); Red Cell Dist. Width 14.1 % (11.5-14.5); White Blood Cell Count 14.3 10^3/uL (4.8-10.8)
[2024-05-05 07:00] VITALS: BP 142/73
[2024-05-05 07:03] LABS: ALT (SGPT) 20 U/L (0-35); AST (SGOT) 19 U/L (14-36); Albumin 2.2 g/dl (3.5-5.0); Alkaline Phosphatase 77 U/L (38-126); Blood Urea Nitrogen 9 mg/dl (7-17); Calcium 7.8 mg/dl (8.4-10.2); Carbon Dioxide 28 mmol/L (22-30); Chloride 108 mmol/L (98-107); Estimated Creatinine Clearance 78 ml/min; Glucose 114 mg/dl (70-99); Potassium 3.5 mmol/L (3.5-5.1); Sodium 145 mmol/L (135-145); Total Bilirubin 0.2 mg/dl (0.2-1.3); Total Protein 4.6 g/dl (6.3-8.2); eGFR > 60.00
[2024-05-05] MEDS: NORVASC 10 MG PO (08:40)
[2024-05-05] MEDS: DEPAKOTE (12 HR RELEASE) 500 MG PO ×3 (08:40→16:26)
[2024-05-05] MEDS: COLACE 100 MG PO (08:40)
[2024-05-05] MEDS: ATIVAN 1 MG PO ×3 (08:40→22:18)
[2024-05-05] MEDS: PROTONIX 40 MG PO (08:40)
[2024-05-05] MEDS: HALDOL 2 MG PO ×2 (08:40→20:21)
[2024-05-05] MEDS: SYMMETREL 100 MG PO ×2 (08:40→20:21)
--- NOTE | 2024-05-05 08:45 | PTOTSP ---
Speech Language Pathology
Pt seen for dysphagia tx. Eating breakfast upon arrival. Seen with med pass with meds whole in puree followed by thin liquids at times. Also seen with pureed items from meal tray in addition to liquids via straw. Audible swallow noted at times,
which may be indicative of incoordination. Slight wet breath sounds noted by end of study. Brief cough noted after breakfast. Pt had coughing episode 05/04 with thin liquids with RN and with soft solids with SHOE DESIGNER. Currently with some wet breath
quality with P.O. intake.
Recommend:
(1) Consider VSE
(2) IDDSI Level 5 (minced/moist) and Thin Liquids
(3) Aspiration precautions: sit upright, slow rate, full supervision with assist as needed
(4) Meds whole in puree
(5) SHOE DESIGNER to continue to follow
--- NOTE | 2024-05-05 10:30 | PTOTSP ---
Speech Language Pathology
VIDEOFLUOROSCOPIC SWALLOWING EXAMINATION (VSE) completed. Overall, pt with mild-mod oral and mild pharyngeal dysphagia. Transient penetration with puree. No other penetration or any aspiration noted. Trace to mod pharyngeal residue noted.
Recommend:
(1) Continue IDDSI Level 5 (Minced/Moist) solids and thin liquids
(2) Aspiration precautions: sit upright, slow rate, full supervision with assist as needed
(3) Meds whole in puree
(4) CRESTER to continue to follow
--- NOTE | 2024-05-05 12:12 | W.PN.GS2 ---
Addendum entered and electronically signed by Christiano Schreiber MD 05/05/24 14:11:
Patient seen and examined.
No reports of worsening abdominal pain. She reports some slight discomfort with turns overlying her drain. No nausea or vomiting. Tolerating a minced and moist diet. Afebrile.
Gen: NAD
Abd: soft, minimal tenderness overlying drain, ND/obese, non-peritoneal, incisions c/d/i - no erythema, ecchymosis or drainage, FRANKIE with light,minimal bilious output (improved)
Patient is a 73 yo F POD#10 s/p laparoscopic subtotal fenestrating cholecystectomy for severe acute on chronic cholecystitis PPD #8 ERCP with stent placement
Anticipated cystic duct stump bile leak controlled with FRANKIE and stent (no evidence of bile peritonitis)
AFVSS
Maintain FRANKIE, cx with yeast
Leukocytosis may be related to subtotal cholecystectomy with portions of gallbladder wall adherent to liver - CT imaging without drainable abscess or collection but there are residual postop inflammatory changes; if is the case it should slowly
improve with supportive care and antibiotic coverage: Appreciate ID following
WBC trending back down
Plan:
-- Minced diet as per SAND TESTER
-- C/W FRANKIE drain
-- Abx: per ID
-- DVT: Lovenox
-- GI: PPI
Original Note:
Today's Communication / Plan
-
c/w FRANKIE and abx
Assessment / Plan
-
Assessment patient is a 73 yo F POD#10 s/p laparoscopic subtotal fenestrating cholecystectomy for severe acute on chronic cholecystitis PPD #8 ERCP with stent placement
Anticipated cystic duct stump bile leak controlled with FRANKIE and stent (no evidence of bile peritonitis)
AFVSS
maintain FRANKIE, cx with yeast
Leukocytosis may be related to subtotal cholecystectomy with portions of gallbladder wall adherent to liver - CT imaging without drainable abscess or collection but there are residual postop inflammatory changes; if is the case it should slowly
improve with supportive care and antibiotic coverage: Appreciate ID following
WBC trending back down
Plan:
-- Minced diet as per SAND TESTER
-- C/W FRANKIE drain
-- Abx: per ID
-- DVT: Lovenox
-- GI: PPI
Subjective Data
-
Date of Service: May 05, 2024
Patient seen and examined at bedside. Notes she feels quite tired. Denies n/v. Denies pain.
Objective Data
-
Intake and Output
05/04/24 05/05/24 05/06/24
06:59 06:59 06:59
Intake Total 360 / 360 1165 / 1165
Balance 360 / 360 1165 / 1165
Intake:
Oral fluids 360 / 360 240 / 240
IV fluids (Total) 825 / 825
IV piggybacks 100 / 100
Other:
Number of approximated MODERATE 1
amounts of urine
Number of approximated LARGE 1
amounts of urine
How many times incontinent 2
MODERATE amount urine
How many times incontinent 3
SATURATED amount urine
Vital Signs
Temp Pulse Resp BP Pulse Ox
98.9 F 78 16 142/73 98
05/05/24 07:00 05/05/24 07:00 05/05/24 07:00 05/05/24 07:00 05/05/24 07:00
Lab Results
05/05/24 05:37
05/05/24 05:37
Calcium 7.8 mg/dl (8.4-10.2) L 05/05/24 05:37
Phosphorus 2.6 mg/dl (2.5-4.5) 05/02/24 05:51
Magnesium 2.0 mg/dl (1.6-2.3) 05/04/24 21:18
Total Bilirubin 0.2 mg/dl (0.2-1.3) 05/05/24 05:37
AST 19 U/L (14-36) 05/05/24 05:37
ALT 20 U/L (0-35) 05/05/24 05:37
Alkaline Phosphatase 77 U/L (38-126) 05/05/24 05:37
Total Protein 4.6 g/dl (6.3-8.2) L 05/05/24 05:37
Albumin 2.2 g/dl (3.5-5.0) L 05/05/24 05:37
Physical Exam
-
NAD, AAO
ABD: Soft, nondistended, tenderness to palpation right upper quadrant
FRANKIE with slight bilious tinged clear fluid, no surrounding drainage
--- NOTE | 2024-05-05 13:17 | W.PN.HOSP.TC ---
Today's Communication/Plan
-
Continue antibiotics and antifungal
Assessment / Plan
Assessment / Plan
Physical Exam
General: Not in acute distress
HEENT: Normocephalic, Moist mucous membranes
Respiratory: CTAB
Cardiac: S1/S2 and Regular Rhythm
GI: Soft, Non Tender, Non Distended and Normal Bowel Sounds. FRANKIE Drain in place.
Musculoskeletal: No Cyanosis and No Edema, LLE CAM boot in place
Skin: Warm. Dry.
Neuro: AAOx3
Psych: Calm
Assessment/Plan
73 y/o female with past medical history of dementia and schizophrenia who came in with increasing lethargy weakness and confusion. She has significant leukocytosis and found to have gallstones and cholecystitis on CT scan. The rest of the
infectious workup so far has been negative for pneumonia or urinary tract infection. Negative COVID. Labs noted showed no other significant abnormalities. CT of the head was negative.
PLAN:
Presentation with increasing lethargy, weakness and confusion
Acute cholecystitis s/p laparoscopic subtotal fenestrating cholecystectomy for severe acute on chronic cholecystitis 04/25/24
Recurrence on 05/01/24 of Severe Abdominal Pain (following improvement initially)
Worsened Leukocytosis
History of ESBL-E. coli colonization)
-gentle IV fluids support completed
-IV ceftriaxone and Flagyl was converted to Augmentin with plan for 5 more days abx 04/30/24-/05/04/24 but then switched back to IV antibiotics due to patient's condition worsening on 04/30/24-05/01/24
overnight
-FRANKIE drain cultures growing yeast
-Blood cultures ordered overnight 04/30/24-05/01/24 due to worsening abdominal pain: follow blood cultures - NGTD
-Repeat CT Abdomen/Pelvis recently ordered by surgery team -- stranding/edema along gallbladder remnant
-IV fluids
-Consulted ID, appreciate their evaluation and recommendations
-Surgery eval appreciated s/p laparoscopic subtotal fenestrating cholecystectomy for severe acute on chronic cholecystitis 04/25
-Bile leak noted, GI eval appreciated ERCP performed with biliary sphincterotomy and plastic stent placed right hepatic duct 04/27
-If no source is found for rising leukocytosis would repeat ERCP to ensure adequate control of leak, as per surgery
-Low Fat and IDDSI 5 Diet
-Urinalysis sent, urine culture with no growth
-Continue Zosyn, and Micafungin added on 05/03/24
Hypokalemia
-Potassium replaced
-Check magnesium
-Monitor BMP
Left Lower Extremity Distal Fibula Fracture
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
-wheelchair bound at baseline but able to perform her own transfers
-LLE ext Ankle X-ray appreciated distal nondisplaced fibula fx
-CAM Boot placed, orthopedic eval appreciated WBAT boot to be worn for 6 wks, outpt follow up recommended
Confusion likely acute metabolic encephalopathy 2/2 cholecystitis as above - resolving
Parkinson's Disease
- continue amantadine
Hypertension
- norvasc
Hypothyroid - tsh wnl
- continue levothyroxine
Hyperlipidemia
Other issues - Dementia and Schizophrenia
-Continue Depakote for now, continue fluoxetine and haloperidol
DVT Prophylaxis: Lovenox
Diet: IDDSI 5 with thin liquids (as per speech on 05/04/24) -- VSE completed on 05/05/24: no aspiration, but did have pudding start to penetrate into laryngeal vestibule briefly. Continue same diet of IDDSI Level 5 (minced/moist) and thin liquids.
Code Status: Full Code
Anticipated Discharge: > 48 hours
Subjective/Interval History
-
Date of Service: May 05, 2024
Patient was seen and examined. No new events or complaints.
Objective Data
-
Labs:
Laboratory Results
05/05/24
05:37
WBC 14.3 H
Hgb 10.1 L
Hct 30.3 L
Plt Count 296
Sodium 145
Potassium 3.5
Chloride 108 H
Carbon Dioxide 28
BUN 9
Creatinine 0.5 L
Glucose 114 H
Calcium 7.8 L
Total Bilirubin 0.2
AST 19
ALT 20
Alkaline Phosphatase 77
Vital Signs:
Vital Signs
Temp Pulse Resp BP Pulse Ox
98.9 F 78 16 142/73 98
05/05/24 07:00 05/05/24 07:00 05/05/24 07:00 05/05/24 07:00 05/05/24 07:00
I&O
05/04/24 05/05/24 05/06/24
06:59 06:59 06:59
Intake Total 360 / 360 1165 / 1165
Balance 360 / 360 1165 / 1165
--- NOTE | 2024-05-05 13:21 | PTOTSP ---
Patient not receptive to education for safety, goals of therapy or mobility of any kind. Verbally and physically aggressive towards therapy; requiring dependent assist x 2-3 to get partially sitting EOB before patient attempts to scratch therapist
and verbally aggressive.
Patient not receptive to education on appropriate behavior moving forward or goals of participation.
Will discharge at this time. If needs change,please re-consult.
[2024-05-05] MEDS: MYCAMINE 105 MG IV (13:57)
--- NOTE | 2024-05-05 14:04 | W.PN.ID1 ---
Date of Service
Date of Service: May 05, 2024
Today's Communication
- Continue Micafungin (d3 of 7)
- Continue Zosyn (d4 of 7)
Assessment / Plan
# Recurrence of leukocytosis- simproved
# Acute gangrenous cholecystitis with focal perforation s/p lap virgilio 04/25
# Post-op bile leak s/p ERCP, stent placement.
# Dysphagia
- Repeat CT persistent stranding/edema along GB remnant to second portion of duodenum
-Blood cx neg to date
- Cx from FRANKIE drain with , C. albicans and C. glabrata, and mixed skin margarita.
Cx from FRANKIE drain may be contaminant and not reflect cx in body fluid.
However, wbc improving on micafungin
- Continue Micafungin (d3 of 7)
- Continue Zosyn (d4 of 7) (h/o ESBL-E. coli colonization)
- Follow wbc.
- Aspiration precaution.
# Additional Past Medical History:
Parkinson's
Dementia
Hypothyroidism
Hypertension
Schizophrenia
CVA
Chief Complaint
-: Leukocytosis
Subjective / Review of Systems
Feels OK.
Vital Signs / Physical Exam
Vital Signs
Vital Signs
Temp Pulse Resp BP Pulse Ox
98.9 F 78 16 142/73 98
05/05/24 07:00 05/05/24 07:00 05/05/24 07:00 05/05/24 07:00 05/05/24 07:00
Physical Exam
Constitutional: No Acute Distress and Chronically Ill
Pulmonary: Other (decreased BS)
Gastrointestinal: Soft, Non Tender and Non Distended
Neurological: Awake and Alert
Objective Data
Lab Data
Lab Results
05/05/24 05:37
05/05/24 05:37
PT 14.7 Sec (11.4-14.6) H 04/27/24 06:19
INR 1.14 04/27/24 06:19
Estimated Creat Clear 78 ml/min 05/05/24 05:37
Lactic Acid 1.5 mmol/L (0.7-2.0) 05/01/24 21:03
Total Bilirubin 0.2 mg/dl (0.2-1.3) 05/05/24 05:37
AST 19 U/L (14-36) 05/05/24 05:37
ALT 20 U/L (0-35) 05/05/24 05:37
Alkaline Phosphatase 77 U/L (38-126) 05/05/24 05:37
Most recent labs reviewed.
Micro Results:
05/01/24 12:34 Wound Culture - Final
[facility] Dana albicans
Dana glabrata (T. glab)
Gram Stain - Final
05/01/24 10:09 Blood Culture - Preliminary
Blood/Venous No Growth in 4 days- Final report to follow
05/01/24 03:05 Blood Culture - Preliminary
Blood/Venous No Growth in 4 days- Final report to follow
05/01/24 15:03 Urine Culture - Final
Urine NO GROWTH
04/25/24 03:59 MRSA Screen - Final
Nose No Methicillin Resistant Staphylococcus aureus isolated.
05/01/24 CT a/p: Postoperative changes of subtotal colectomy with common bile duct stent placement. There is persistent stranding/edema along the gallbladder remnant which extends along the second portion the duodenum which may be postoperative in
nature however ongoing infectious process cannot be excluded.
04/24/24 CT C/A/P:Gallstones with secondary findings to suggesting acute cholecystitis. Clinical and laboratory correlation recommended.
[2024-05-05 16:00] VITALS: BP 143/67
[2024-05-05] MEDS: KCL 40 MEQ PO (16:26)
[2024-05-05] MEDS: LOVENOX 40 MG SC (17:14)
[2024-05-05] MEDS: PROZAC 10 MG PO (22:18)
[2024-05-05] MEDS: PROZAC 20 MG PO (22:18)
[2024-05-05] MEDS: ZYPREXA 20 MG PO (22:18)
[2024-05-05] MEDS: DEPAKOTE (12 HR RELEASE) 250 MG PO (22:18)
[2024-05-05 23:35] VITALS: BP 152/79
[2024-05-06] MEDS: ZOSYN 50 IV ×4 (04:58→22:38)
[2024-05-06] MEDS: SYNTHROID 112 MCG PO (05:33)
[2024-05-06] MEDS: TYLENOL 650 MG PO ×3 (05:33→17:10)
[2024-05-06] MEDS: PROTONIX 40 MG PO (07:45)
[2024-05-06] MEDS: SYMMETREL 100 MG PO ×2 (07:48→20:55)
[2024-05-06] MEDS: HALDOL 2 MG PO ×2 (07:48→20:55)
[2024-05-06] MEDS: DEPAKOTE (12 HR RELEASE) 500 MG PO ×3 (07:48→17:13)
[2024-05-06] MEDS: COLACE 100 MG PO (07:49)
[2024-05-06] MEDS: ATIVAN 1 MG PO ×3 (07:49→22:36)
[2024-05-06] MEDS: NORVASC 10 MG PO (07:49)
[2024-05-06 08:37] LABS: ALT (SGPT) 19 U/L (0-35); AST (SGOT) 20 U/L (14-36); Albumin 2.1 g/dl (3.5-5.0); Alkaline Phosphatase 77 U/L (38-126); Blood Urea Nitrogen 9 mg/dl (7-17); Calcium 7.9 mg/dl (8.4-10.2); Carbon Dioxide 30 mmol/L (22-30); Chloride 107 mmol/L (98-107); Estimated Creatinine Clearance 76 ml/min; Glucose 141 mg/dl (70-99); Potassium 3.5 mmol/L (3.5-5.1); Sodium 143 mmol/L (135-145); Total Bilirubin 0.2 mg/dl (0.2-1.3); Total Protein 4.4 g/dl (6.3-8.2); eGFR > 60.00
[2024-05-06 08:38] VITALS: BP 143/59
[2024-05-06 09:36] LABS: % Basophils 0.2 % (0-2); % Eosinophils 1.4 % (0-6); % Immature Granulocytes 1.4 % (0-0.5); % Monocytes 9.7 % (1.7-9.3); % Neutrophils 73.3 % (42.2-75.2); Absolute Eosinophils 0.2 10^3/uL (0-0.7); Absolute Immature Granulocytes 0.2 10^3/uL (0-0.05); Absolute Lymphocytes 1.8 10^3/uL (1.2-3.4); Absolute Monocytes 1.3 10^3/uL (0.1-0.6); Absolute Neutrophils 9.6 10^3/uL (1.4-6.5); Hematocrit 28.6 % (37.0-47.0); Hemoglobin 9.6 g/dL (12.0-16.0); Mean Corp Hgb Conc. 33.6 g/dL (33.0-37.0); Mean Corpuscular Hgb 31.1 pg (27.0-31.0); Mean Corpuscular Volume 92.6 fL (81.0-99.0); Mean Platelet Volume 9.4 fL (7.4-10.4); Nucleated Red Blood Cells % 0 %; Platelet Count 327 10^3/uL (130-400); Red Blood Cell Count 3.09 10^6/uL (4.20-5.40); Red Cell Dist. Width 14.3 % (11.5-14.5); White Blood Cell Count 13.1 10^3/uL (4.8-10.8)
[2024-05-06] MEDS: MYCAMINE 105 MG IV (13:00)
--- NOTE | 2024-05-06 16:04 | W.PN.HOSP.TC ---
Today's Communication/Plan
-
Continue antibiotics and antifungal
Assessment / Plan
Assessment / Plan
Physical Exam
General: Not in acute distress
HEENT: Normocephalic, Moist mucous membranes
Respiratory: CTAB
Cardiac: S1/S2 and Regular Rhythm
GI: Soft, Non Tender, Non Distended and Normal Bowel Sounds. FRANKIE Drain in place.
Musculoskeletal: No Cyanosis and No Edema, LLE CAM boot in place
Skin: Warm. Dry.
Neuro: AAOx3
Psych: Calm
Assessment/Plan
73 y/o female with past medical history of dementia and schizophrenia who came in with increasing lethargy weakness and confusion. She has significant leukocytosis and found to have gallstones and cholecystitis on CT scan. The rest of the
infectious workup so far has been negative for pneumonia or urinary tract infection. Negative COVID. Labs noted showed no other significant abnormalities. CT of the head was negative.
PLAN:
Presentation with increasing lethargy, weakness and confusion
Acute cholecystitis s/p laparoscopic subtotal fenestrating cholecystectomy for severe acute on chronic cholecystitis 04/25/24
Recurrence on 05/01/24 of Severe Abdominal Pain (following improvement initially)
Worsened Leukocytosis
History of ESBL-E. coli colonization)
-gentle IV fluids support completed
-IV ceftriaxone and Flagyl was converted to Augmentin with plan for 5 more days abx 04/30/24-/05/04/24 but then switched back to IV antibiotics due to patient's condition worsening on 04/30/24-05/01/24
overnight
-FRANKIE drain cultures grew Dana species
-Blood cultures ordered overnight 04/30/24-05/01/24 due to worsening abdominal pain: follow blood cultures - NGTD
-Repeat CT Abdomen/Pelvis recently ordered by surgery team -- stranding/edema along gallbladder remnant
-IV fluids
-Consulted ID, appreciate their evaluation and recommendations
-Surgery eval appreciated s/p laparoscopic subtotal fenestrating cholecystectomy for severe acute on chronic cholecystitis 04/25
-Bile leak noted, GI eval appreciated ERCP performed with biliary sphincterotomy and plastic stent placed right hepatic duct 04/27
-If no source is found for rising leukocytosis would repeat ERCP to ensure adequate control of leak, as per surgery
-Low Fat and IDDSI 5 Diet
-Urinalysis sent, urine culture with no growth
-Continue Zosyn, and Micafungin added on 05/03/24
Hypokalemia
-Potassium replaced
-Checked magnesium - OK
-Monitor BMP
Left Lower Extremity Distal Fibula Fracture
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
-wheelchair bound at baseline but able to perform her own transfers
-LLE ext Ankle X-ray appreciated distal nondisplaced fibula fx
-CAM Boot placed, orthopedic eval appreciated WBAT boot to be worn for 6 wks, outpt follow up recommended
Confusion likely acute metabolic encephalopathy 2/2 cholecystitis as above - resolving
Parkinson's Disease
- continue amantadine
Hypertension
- norvasc
Hypothyroid - tsh wnl
- continue levothyroxine
Hyperlipidemia
Other issues - Dementia and Schizophrenia
-Continue Depakote for now, continue fluoxetine and haloperidol
DVT Prophylaxis: Lovenox
Diet: IDDSI 5 with thin liquids (as per speech on 05/04/24) -- VSE completed on 05/05/24: no aspiration, but did have pudding start to penetrate into laryngeal vestibule briefly. Continue same diet of IDDSI Level 5 (minced/moist) and thin liquids.
Code Status: Full Code
Anticipated Discharge: > 48 hours
Subjective/Interval History
-
Date of Service: May 06, 2024
Patient was seen and examined. She reported no new symptoms or complaints.
Objective Data
-
Labs:
Laboratory Results
05/06/24 05/06/24
06:53 09:25
WBC 13.1 H
Hgb 9.6 L
Hct 28.6 L
Plt Count 327
Sodium 143
Potassium 3.5
Chloride 107
Carbon Dioxide 30
BUN 9
Creatinine 0.5 L
Glucose 141 H
Calcium 7.9 L
Total Bilirubin 0.2
AST 20
ALT 19
Alkaline Phosphatase 77
Vital Signs:
Vital Signs
Temp Pulse Resp BP Pulse Ox
98.2 F 71 18 143/59 91
05/06/24 08:38 05/06/24 08:38 05/06/24 08:38 05/06/24 08:38 05/06/24 08:38
I&O
05/05/24 05/06/24 05/07/24
06:59 06:59 06:59
Intake Total 1165 / 1165 1720 / 1720
Output Total
Balance 1165 / 1165 1712 / 1712
[2024-05-06 16:11] VITALS: BP 133/67
[2024-05-06] MEDS: KCL 40 MEQ PO (17:09)
[2024-05-06] MEDS: LOVENOX 40 MG SC (17:09)
[2024-05-06] MEDS: DILAUDID 0.5 MG IV (18:12)
[2024-05-06] MEDS: ZYPREXA 20 MG PO (22:36)
[2024-05-06] MEDS: PROZAC 20 MG PO (22:36)
[2024-05-06] MEDS: DEPAKOTE (12 HR RELEASE) 250 MG PO (22:36)
[2024-05-06] MEDS: PROZAC 10 MG PO (22:36)
[2024-05-06 23:51] VITALS: BP 143/75
[2024-05-07] MEDS: TYLENOL PO (01:03)
[2024-05-07] MEDS: ZOSYN 50 IV ×4 (03:51→21:50)
[2024-05-07] MEDS: ROXICODONE 5 MG PO ×2 (03:51→20:33)
[2024-05-07] MEDS: SYNTHROID 112 MCG PO (06:17)
[2024-05-07] MEDS: TYLENOL 650 MG PO ×3 (06:17→16:35)
[2024-05-07 07:39] VITALS: BP 139/70
[2024-05-07] MEDS: COLACE 100 MG PO (07:49)
[2024-05-07] MEDS: ATIVAN 1 MG PO ×3 (07:50→20:34)
[2024-05-07] MEDS: NORVASC 10 MG PO (07:50)
[2024-05-07] MEDS: HALDOL 2 MG PO ×2 (07:50→20:34)
[2024-05-07] MEDS: PROTONIX 40 MG PO (07:50)
[2024-05-07] MEDS: DEPAKOTE (12 HR RELEASE) 500 MG PO ×3 (07:50→16:34)
[2024-05-07] MEDS: SYMMETREL 100 MG PO ×2 (07:50→20:34)
[2024-05-07] MEDS: FLUSH (NSS) 2 FLUSH IV (10:57)
[2024-05-07] MEDS: MYCAMINE 105 MG IV (13:01)
[2024-05-07 15:35] VITALS: BP 167/93
[2024-05-07] MEDS: LOVENOX 40 MG SC (16:34)
--- NOTE | 2024-05-07 16:40 | W.PN.HOSP.TC ---
Today's Communication/Plan
-
Continue IV antibiotics and antifungal
Assessment / Plan
Assessment / Plan
Physical Exam
General: Not in acute distress
HEENT: Normocephalic, Moist mucous membranes
Respiratory: CTAB
Cardiac: S1/S2 and Regular Rhythm
GI: Soft, Non Tender, Non Distended and Normal Bowel Sounds. FRANKIE Drain in place.
Musculoskeletal: No Cyanosis and No Edema, LLE CAM boot in place
Skin: Warm. Dry.
Neuro: AAOx3
Psych: Calm
Assessment/Plan
73 y/o female with past medical history of dementia and schizophrenia who came in with increasing lethargy weakness and confusion. She has significant leukocytosis and found to have gallstones and cholecystitis on CT scan. The rest of the
infectious workup so far has been negative for pneumonia or urinary tract infection. Negative COVID. Labs noted showed no other significant abnormalities. CT of the head was negative.
PLAN:
Presentation with increasing lethargy, weakness and confusion
Acute cholecystitis s/p laparoscopic subtotal fenestrating cholecystectomy for severe acute on chronic cholecystitis 04/25/24
Recurrence on 05/01/24 of Severe Abdominal Pain (following improvement initially)
Worsened Leukocytosis
History of ESBL-E. coli colonization)
-gentle IV fluids support completed
-IV ceftriaxone and Flagyl was converted to Augmentin with plan for 5 more days abx 04/30/24-/05/04/24 but then switched back to IV antibiotics due to patient's condition worsening on 04/30/24-05/01/24
overnight
-FRANKIE drain cultures grew Dana species
-Blood cultures ordered overnight 04/30/24-05/01/24 due to worsening abdominal pain: follow blood cultures - NGTD
-Repeat CT Abdomen/Pelvis recently ordered by surgery team -- stranding/edema along gallbladder remnant
-IV fluids
-Consulted ID, appreciate their evaluation and recommendations
-Surgery eval appreciated s/p laparoscopic subtotal fenestrating cholecystectomy for severe acute on chronic cholecystitis 04/25
-Bile leak noted, GI eval appreciated ERCP performed with biliary sphincterotomy and plastic stent placed right hepatic duct 04/27
-If no source is found for rising leukocytosis would repeat ERCP to ensure adequate control of leak, as per surgery
-Low Fat and IDDSI 5 Diet
-Urinalysis sent, urine culture with no growth
-Continue Zosyn, and Micafungin added on 05/03/24
Hypokalemia
-Potassium replaced
-Checked magnesium - OK
-Monitor BMP
Left Lower Extremity Distal Fibula Fracture
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
-wheelchair bound at baseline but able to perform her own transfers
-LLE ext Ankle X-ray appreciated distal nondisplaced fibula fx
-CAM Boot placed, orthopedic eval appreciated WBAT boot to be worn for 6 wks, outpt follow up recommended
Confusion likely acute metabolic encephalopathy 2/2 cholecystitis as above - resolving
Parkinson's Disease
- continue amantadine
Hypertension
- norvasc
Hypothyroid - tsh wnl
- continue levothyroxine
Hyperlipidemia
Other issues - Dementia and Schizophrenia
-Continue Depakote for now, continue fluoxetine and haloperidol
DVT Prophylaxis: Lovenox
Diet: IDDSI 5 with thin liquids (as per speech on 05/04/24) -- VSE completed on 05/05/24: no aspiration, but did have pudding start to penetrate into laryngeal vestibule briefly. Continue same diet of IDDSI Level 5 (minced/moist) and thin liquids.
Code Status: Full Code
Anticipated Discharge: > 48 hours
Subjective/Interval History
-
Date of Service: May 07, 2024
Patient was seen and examined. No new events or complaints.
Objective Data
-
Vital Signs:
Vital Signs
Temp Pulse Resp BP Pulse Ox
98.1 F 74 20 167/93 91
05/07/24 15:35 05/07/24 15:35 05/07/24 15:35 05/07/24 15:35 05/07/24 15:35
I&O
05/06/24 05/07/24 05/08/24
06:59 06:59 06:59
Intake Total 1720 / 1720 820 / 820
Output Total
Balance 1712 / 1712 817 / 817
[2024-05-07 20:30] LABS: Blood Urea Nitrogen 10 mg/dl (7-17); Carbon Dioxide 29 mmol/L (22-30); Chloride 106 mmol/L (98-107); Estimated Creatinine Clearance 76 ml/min; Glucose 154 mg/dl (70-99); Potassium 3.8 mmol/L (3.5-5.1); Sodium 143 mmol/L (135-145); eGFR > 60.00
[2024-05-07] MEDS: ZYPREXA 20 MG PO (20:34)
[2024-05-07] MEDS: DEPAKOTE (12 HR RELEASE) 250 MG PO (20:34)
[2024-05-07] MEDS: PROZAC 10 MG PO (20:34)
[2024-05-07] MEDS: PROZAC 20 MG PO (20:34)
[2024-05-07 23:15] VITALS: BP 133/68
[2024-05-08] MEDS: TYLENOL 650 MG PO ×4 (00:50→17:12)
[2024-05-08] MEDS: ZOSYN 50 IV ×4 (04:13→21:50)
[2024-05-08] MEDS: FLUSH (NSS) 1 FLUSH IV (04:14)
[2024-05-08] MEDS: SYNTHROID 112 MCG PO (04:57)
--- NOTE | 2024-05-08 06:28 | W.PN.HOSP.TC ---
Today's Communication/Plan
-
cont abx antifungal as per ID
pain control
drain/wound care as per surgery
trend wbc
Assessment / Plan
Assessment / Plan
Physical Exam
General: Not in acute distress
HEENT: Normocephalic, Moist mucous membranes
Respiratory: CTAB
Cardiac: S1/S2 and Regular Rhythm
GI: Soft, Non Tender, Non Distended and Normal Bowel Sounds. FRANKIE Drain in place.
Musculoskeletal: No Cyanosis and No Edema, LLE CAM boot in place
Skin: Warm. Dry.
Neuro: Lethargic but arousable confused recent pain med use noted
Psych: Calm
Assessment/Plan
73 y/o female with past medical history of dementia and schizophrenia who came in with increasing lethargy weakness and confusion. She has significant leukocytosis and found to have gallstones and cholecystitis on CT scan. The rest of the
infectious workup so far has been negative for pneumonia or urinary tract infection. Negative COVID. Labs noted showed no other significant abnormalities. CT of the head was negative.
PLAN:
Presentation with increasing lethargy, weakness and confusion
Acute cholecystitis s/p laparoscopic subtotal fenestrating cholecystectomy for severe acute on chronic cholecystitis 04/25/24
Recurrence on 05/01/24 of Severe Abdominal Pain (following improvement initially)
Worsened Leukocytosis
History of ESBL-E. coli colonization)
-gentle IV fluids support completed
-IV ceftriaxone and Flagyl was converted to Augmentin with plan for 5 more days abx 04/30/24-/05/04/24 but then switched back to IV antibiotics due to patient's condition worsening on 04/30/24-05/01/24 overnight
-FRANKIE drain cultures grew Dana species
-Blood cultures ordered overnight 04/30/24-05/01/24 due to worsening abdominal pain: follow blood cultures - NGTD
-Repeat CT Abdomen/Pelvis recently ordered by surgery team -- stranding/edema along gallbladder remnant
-IV fluids
-Consulted ID, appreciate their evaluation and recommendations
-Surgery eval appreciated s/p laparoscopic subtotal fenestrating cholecystectomy for severe acute on chronic cholecystitis 04/25
-Bile leak noted, GI eval appreciated ERCP performed with biliary sphincterotomy and plastic stent placed right hepatic duct 04/27
-If no source is found for rising leukocytosis would repeat ERCP to ensure adequate control of leak, as per surgery
-Low Fat and IDDSI 5 Diet
-Urinalysis sent, urine culture with no growth
-completing 7 days Zosyn 05/08/24 as per ID, Micafungin added on 05/03/24 also planned for 7 days 05/09/24 last day as per ID
Hypokalemia
-monitor and replete as necessary
Left Lower Extremity Distal Fibula Fracture
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
-wheelchair bound at baseline but able to perform her own transfers
-LLE ext Ankle X-ray appreciated distal nondisplaced fibula fx
-CAM Boot placed, orthopedic eval appreciated WBAT boot to be worn for 6 wks, outpt follow up recommended
Confusion likely acute metabolic encephalopathy 2/2 cholecystitis as above - resolving
Parkinson's Disease
- continue amantadine
Hypertension
- norvasc
Hypothyroid - tsh wnl
- continue levothyroxine
Hyperlipidemia
Other issues - Dementia and Schizophrenia
-Continue Depakote for now, continue fluoxetine and haloperidol
DVT Prophylaxis: Lovenox
Diet: IDDSI 5 with thin liquids (as per speech on 05/04/24) -- VSE completed on 05/05/24: no aspiration, but did have pudding start to penetrate into laryngeal vestibule briefly. Continue same diet of IDDSI Level 5 (minced/moist) and thin liquids.
Code Status: Full Code
Discussed with patient and patient's cousin PANFILOEnma Haynes
I spent a total of 50 minutes with the patient or on the floor. More than 50% of this time involved counseling and coordination of care.
Anticipated Discharge: > 48 hours
Subjective/Interval History
-
Date of Service: May 08, 2024
Confused lethargic but arousable. Recently received pain medication at time of evaluation. Cousin ELLIS Haynes present during evaluation.
Objective Data
-
Labs:
Laboratory Results
05/07/24 05/08/24
19:56 06:16
WBC Pending
Hgb Pending
Hct Pending
Plt Count Pending
Sodium 143 Pending
Potassium 3.8 Pending
Chloride 106 Pending
Carbon Dioxide 29 Pending
BUN 10 Pending
Creatinine 0.5 L Pending
Glucose 154 H Pending
Calcium 8.0 L Pending
Vital Signs:
Vital Signs
Temp Pulse Resp BP Pulse Ox
97.7 F 69 18 133/68 90
05/07/24 23:15 05/07/24 23:15 05/07/24 23:15 05/07/24 23:15 05/07/24 23:15
I&O
05/06/24 05/07/24 05/08/24
06:59 06:59 06:59
Intake Total 1720 / 1720 820 / 820 520 / 520
Output Total 3
Balance 1712 / 1712 817 / 817 515 / 515
[2024-05-08 07:22] LABS: % Basophils 0.3 % (0-2); % Eosinophils 1.4 % (0-6); % Immature Granulocytes 1.5 % (0-0.5); % Lymphocytes 12.9 % (20.5-51.1); % Monocytes 8.7 % (1.7-9.3); % Neutrophils 75.2 % (42.2-75.2); Absolute Eosinophils 0.2 10^3/uL (0-0.7); Absolute Immature Granulocytes 0.2 10^3/uL (0-0.05); Absolute Lymphocytes 1.8 10^3/uL (1.2-3.4); Absolute Monocytes 1.2 10^3/uL (0.1-0.6); Absolute Neutrophils 10.6 10^3/uL (1.4-6.5); Hematocrit 29.3 % (37.0-47.0); Hemoglobin 9.9 g/dL (12.0-16.0); Mean Corp Hgb Conc. 33.8 g/dL (33.0-37.0); Mean Corpuscular Volume 91.8 fL (81.0-99.0); Mean Platelet Volume 9.6 fL (7.4-10.4); Nucleated Red Blood Cells % 0 %; Platelet Count 396 10^3/uL (130-400); Red Blood Cell Count 3.19 10^6/uL (4.20-5.40); Red Cell Dist. Width 14.2 % (11.5-14.5)
[2024-05-08 07:25] VITALS: BP 134/64
[2024-05-08 07:26] LABS: Blood Urea Nitrogen 8 mg/dl (7-17); Calcium 8.2 mg/dl (8.4-10.2); Carbon Dioxide 32 mmol/L (22-30); Chloride 103 mmol/L (98-107); Estimated Creatinine Clearance 76 ml/min; Glucose 135 mg/dl (70-99); Sodium 143 mmol/L (135-145); eGFR > 60.00
[2024-05-08] MEDS: ATIVAN 1 MG PO ×3 (07:54→21:51)
[2024-05-08] MEDS: PROTONIX 40 MG PO (07:54)
[2024-05-08] MEDS: COLACE 100 MG PO (07:54)
[2024-05-08] MEDS: DEPAKOTE (12 HR RELEASE) 500 MG PO ×3 (07:54→17:12)
[2024-05-08] MEDS: NORVASC 10 MG PO (07:54)
[2024-05-08] MEDS: HALDOL 2 MG PO ×2 (07:54→21:51)
[2024-05-08] MEDS: SYMMETREL 100 MG PO ×2 (07:54→21:51)
[2024-05-08] MEDS: ROXICODONE 5 MG PO ×2 (07:56→17:14)
--- NOTE | 2024-05-08 11:04 | W.PN.ID1 ---
Date of Service
Date of Service: May 08, 2024
Today's Communication
Last day of Zosyn today.
Continue micafungin through tomorrow.
Assessment / Plan
# Recurrence of leukocytosis- overall improved
# Acute gangrenous cholecystitis with focal perforation s/p lap virgilio 04/25
# Post-op bile leak s/p ERCP, stent placement.
# Dysphagia
- Repeat CT persistent stranding/edema along GB remnant to second portion of duodenum
-Blood cx neg to date
- Cx from FRANKIE drain with , C. albicans and C. glabrata, and mixed skin margarita.
Cx from FRANKIE drain may be contaminant and not reflect cx in body fluid.
However, wbc improving on micafungin
- Continue Micafungin (d6 of 7)
- Continue Zosyn (d7 of 7) (h/o ESBL-E. coli colonization)
- Follow wbc.
- Aspiration precaution.
# Additional Past Medical History:
Parkinson's
Dementia
Hypothyroidism
Hypertension
Schizophrenia
CVA
Chief Complaint
-: Leukocytosis
Vital Signs / Physical Exam
Vital Signs
Vital Signs
Temp Pulse Resp BP Pulse Ox
98.3 F 74 16 134/64 96
05/08/24 07:25 05/08/24 07:54 05/08/24 07:25 05/08/24 07:54 05/08/24 07:25
Physical Exam
Constitutional: No Acute Distress
Pulmonary: Other (decreased BS)
Gastrointestinal: Soft, Non Tender and Non Distended
Neurological: Awake and Alert
Objective Data
Lab Data
Lab Results
05/08/24 06:16
05/08/24 06:16
PT 14.7 Sec (11.4-14.6) H 04/27/24 06:19
INR 1.14 04/27/24 06:19
Estimated Creat Clear 76 ml/min 05/08/24 06:16
Lactic Acid 1.5 mmol/L (0.7-2.0) 05/01/24 21:03
Total Bilirubin 0.2 mg/dl (0.2-1.3) 05/06/24 06:53
AST 20 U/L (14-36) 05/06/24 06:53
ALT 19 U/L (0-35) 05/06/24 06:53
Alkaline Phosphatase 77 U/L (38-126) 05/06/24 06:53
Most recent labs reviewed.
Micro Results:
05/01/24 10:09 Blood Culture - Final
Blood/Venous No Growth - Final Report
05/01/24 03:05 Blood Culture - Final
Blood/Venous No Growth - Final Report
05/01/24 12:34 Wound Culture - Final
[facility] Dana albicans
Dana glabrata (T. glab)
Gram Stain - Final
05/01/24 15:03 Urine Culture - Final
Urine NO GROWTH
04/25/24 03:59 MRSA Screen - Final
Nose No Methicillin Resistant Staphylococcus aureus isolated.
05/01/24 CT a/p: Postoperative changes of subtotal colectomy with common bile duct stent placement. There is persistent stranding/edema along the gallbladder remnant which extends along the second portion the duodenum which may be postoperative in
nature however ongoing infectious process cannot be excluded.
04/24/24 CT C/A/P:Gallstones with secondary findings to suggesting acute cholecystitis. Clinical and laboratory correlation recommended.
--- NOTE | 2024-05-08 11:38 | W.PN.GS2 ---
Addendum entered and electronically signed by Hi Banerjee MD 05/08/24 12:02:
I saw and examined the patient independently.
The Lawn Service Worker's note was reviewed and I agree with the note, assessment and plan except where noted below.
Comment: This is a 73-year-old female status post laparoscopic subtotal fenestrated cholecystectomy for severe acute on chronic cholecystitis on 1014 with ERCP and stent placement on 1016. Expected cystic duct stump leak controlled with PAULA and ERCP
stent. Overall has been doing well, follow-up CT scan on 1020 did not show any residual abscess or collection however her white count has continued to remain elevated without unclear etiology.
Will obtain a repeat CT abdomen pelvis with p.o. and IV contrast.
Antibiotics per ID. Appreciate ID following.
Okay for diet
continue PAULA to bulb suction.
General surgery will continue to follow
Original Note:
Today's Communication / Plan
-
c/w diet and paula
Assessment / Plan
-
Assessment patient is a 73 yo F s/p laparoscopic subtotal fenestrating cholecystectomy for severe acute on chronic cholecystitis on 04/25 with ERCP with stent placement on 04/27. Anticipated cystic duct stump bile leak controlled with PAULA and stent
(no evidence of bile peritonitis)
Follow up CT imaging on 05/01 without drainable abscess or collection but there are residual postop inflammatory changes; if is the case it should slowly improve with supportive care and antibiotic coverage: Appreciate ID following
AFVSS
maintain PAULA, cx with yeast: very minimal drainage at this point which is clear
CT imaging without drainable abscess or collection but there are residual postop inflammatory changes; if is the case it should slowly improve with supportive care and antibiotic coverage: Appreciate ID following
WBC remains elevated
Plan:
-- Minced diet as per EVENT PLANNING INTERN
-- C/W PAULA drain, anticipate being able to remove prior to discharge
-- Abx and infectious work up as per ID
-- DVT: Lovenox
-- GI: PPI
Subjective Data
-
Date of Service: May 08, 2024
Patient seen and examined at bedside with Dr. Banerjee. Denies n/v. Tolerating diet. Denies abdominal pain.
Objective Data
-
Intake and Output
05/07/24 05/08/24 05/09/24
06:59 06:59 06:59
Intake Total 820 / 820 520 / 520
Output Total
Balance 817 / 817 515 / 515
Intake:
Oral fluids 720 / 720 420 / 420
IV piggybacks 100 / 100 100 / 100
Output:
Drain Output (Total)
Right Serge-Jacinto
Other:
Number of approximated MODERATE 1
amounts of urine
How many times incontinent 1
MODERATE amount urine
How many times incontinent 2 1
SATURATED amount urine
Vital Signs
Temp Pulse Resp BP Pulse Ox
98.3 F 74 16 134/64 96
05/08/24 07:25 05/08/24 07:54 05/08/24 07:25 05/08/24 07:54 05/08/24 07:25
Lab Results
05/08/24 06:16
05/08/24 06:16
Calcium 8.2 mg/dl (8.4-10.2) L 05/08/24 06:16
Phosphorus 2.6 mg/dl (2.5-4.5) 05/02/24 05:51
Magnesium 2.0 mg/dl (1.6-2.3) 05/08/24 06:16
Total Bilirubin 0.2 mg/dl (0.2-1.3) 05/06/24 06:53
AST 20 U/L (14-36) 05/06/24 06:53
ALT 19 U/L (0-35) 05/06/24 06:53
Alkaline Phosphatase 77 U/L (38-126) 05/06/24 06:53
Total Protein 4.4 g/dl (6.3-8.2) L 05/06/24 06:53
Albumin 2.1 g/dl (3.5-5.0) L 05/06/24 06:53
Physical Exam
-
NAD, sleepy but answers questions and awakens to name
ABD: Soft, nondistended, NT
PAULA with minimal clear fluid, no surrounding drainage or erythema
[2024-05-08] MEDS: OMNIPAQUE 50 ML PO (12:31)
[2024-05-08] MEDS: MYCAMINE 105 MG IV (13:28)
[2024-05-08] MEDS: FLUSH (NSS) 2 FLUSH IV ×2 (13:29→21:51)
[2024-05-08 15:32] VITALS: BP 141/74
--- NOTE | 2024-05-08 16:10 | CM ---
CM reviewed chart- ADC >48 hours
Update verbally provided to [facility] admissions per request
Plan for SNF return for continued LTC on dc
Discharge Disposition- return to [facility] for LTC
[2024-05-08] MEDS: LOVENOX 40 MG SC (17:12)
[2024-05-08] MEDS: PROZAC 20 MG PO (21:50)
[2024-05-08] MEDS: PROZAC 10 MG PO (21:51)
[2024-05-08] MEDS: DEPAKOTE (12 HR RELEASE) 250 MG PO (21:51)
[2024-05-08] MEDS: ZYPREXA 20 MG PO (21:51)
[2024-05-08 23:45] VITALS: BP 146/84
[2024-05-09] MEDS: TYLENOL 650 MG PO ×5 (00:53→23:49)
[2024-05-09] MEDS: ZOSYN 50 IV (03:45)
[2024-05-09] MEDS: SYNTHROID 112 MCG PO (04:53)
[2024-05-09 06:24] LABS: % Basophils 0.5 % (0-2); % Eosinophils 2.1 % (0-6); % Immature Granulocytes 2.1 % (0-0.5); % Monocytes 9.9 % (1.7-9.3); % Neutrophils 71.4 % (42.2-75.2); Absolute Basophils 0.1 10^3/uL (0-0.2); Absolute Eosinophils 0.3 10^3/uL (0-0.7); Absolute Immature Granulocytes 0.3 10^3/uL (0-0.05); Absolute Lymphocytes 1.7 10^3/uL (1.2-3.4); Absolute Monocytes 1.2 10^3/uL (0.1-0.6); Absolute Neutrophils 8.7 10^3/uL (1.4-6.5); Hematocrit 30.2 % (37.0-47.0); Hemoglobin 10.2 g/dL (12.0-16.0); Mean Corp Hgb Conc. 33.8 g/dL (33.0-37.0); Mean Corpuscular Hgb 32.1 pg (27.0-31.0); Mean Platelet Volume 9.6 fL (7.4-10.4); Nucleated Red Blood Cells % 0 %; Platelet Count 413 10^3/uL (130-400); Red Blood Cell Count 3.18 10^6/uL (4.20-5.40); Red Cell Dist. Width 13.8 % (11.5-14.5); White Blood Cell Count 12.1 10^3/uL (4.8-10.8)
[2024-05-09 06:36] LABS: Blood Urea Nitrogen 12 mg/dl (7-17); Calcium 8.4 mg/dl (8.4-10.2); Carbon Dioxide 33 mmol/L (22-30); Chloride 103 mmol/L (98-107); Estimated Creatinine Clearance 76 ml/min; Glucose 119 mg/dl (70-99); Sodium 141 mmol/L (135-145); eGFR > 60.00
[2024-05-09 07:22] VITALS: BP 155/80
--- NOTE | 2024-05-09 07:44 | W.PN.HOSP.TC ---
Today's Communication/Plan
-
completed abx and antifungal monitor off
cont pain control
drain/wound care as per surgery
trend wbc
Assessment / Plan
Assessment / Plan
Physical Exam
General: Not in acute distress
HEENT: Normocephalic, Moist mucous membranes
Respiratory: CTAB
Cardiac: S1/S2 and Regular Rhythm
GI: Soft, Non Tender, Non Distended and Normal Bowel Sounds. FRANKIE Drain in place.
Musculoskeletal: No Cyanosis and No Edema, LLE CAM boot in place
Skin: Warm. Dry.
Neuro: Lethargic but arousable conversant confused
Psych: Calm
Assessment/Plan
73 y/o female with past medical history of dementia and schizophrenia who came in with increasing lethargy weakness and confusion. She has significant leukocytosis and found to have gallstones and cholecystitis on CT scan. The rest of the
infectious workup so far has been negative for pneumonia or urinary tract infection. Negative COVID. Labs noted showed no other significant abnormalities. CT of the head was negative.
PLAN:
Presentation with increasing lethargy, weakness and confusion
Acute cholecystitis s/p laparoscopic subtotal fenestrating cholecystectomy for severe acute on chronic cholecystitis 04/25/24
Recurrence on 05/01/24 of Severe Abdominal Pain (following improvement initially)
Worsened Leukocytosis
History of ESBL-E. coli colonization)
-gentle IV fluids support completed
-IV ceftriaxone and Flagyl was converted to Augmentin with plan for 5 more days abx 04/30/24-/05/04/24 but then switched back to IV antibiotics due to patient's condition worsening on 04/30/24-05/01/24 overnight
-FRANKIE drain cultures grew Dana species
-Blood cultures ordered overnight 04/30/24-05/01/24 due to worsening abdominal pain: follow blood cultures - NGTD
-Repeat CT Abdomen/Pelvis recently ordered by surgery team -- stranding/edema along gallbladder remnant
-IV fluids
-Consulted ID, appreciate their evaluation and recommendations
-Surgery eval appreciated s/p laparoscopic subtotal fenestrating cholecystectomy for severe acute on chronic cholecystitis 04/25
-Bile leak noted, GI eval appreciated ERCP performed with biliary sphincterotomy and plastic stent placed right hepatic duct 04/27
-If no source is found for rising leukocytosis would repeat ERCP to ensure adequate control of leak, as per surgery
-Low Fat and IDDSI 5 Diet
-Urinalysis sent, urine culture with no growth
-completed 7 days Zosyn and Micafungin as per ID
Repeat CT abd/pelvis 05/08/24 noted
1. Thin fluid collection within the gallbladder fossa, measuring 5.5 x 1.1 x 1.2 cm, adjacent to the surgically placed drain. This collection is smaller in size compared to 05/01/2024, and may represent postoperative fluid collection, biloma, or
abscess.
2. Small bilateral pleural effusions. Bibasilar airspace consolidation, which may represent subsegmental atelectasis, aspiration, or pneumonia.
3. Right-sided nephrolithiasis without hydronephrosis.
Subsequent CXR 05/08/24 to follow up possible pna noted:
Moderate right and small left pleural effusions with adjacent atelectasis.
Stable respiratory status on room air.
Recommend incentive spirometer use.
Follow up pleural effusion with CXR in 1 mo
Hypokalemia
-monitor and replete as necessary
Left Lower Extremity Distal Fibula Fracture
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
-wheelchair bound at baseline but able to perform her own transfers
-LLE ext Ankle X-ray appreciated distal nondisplaced fibula fx
-CAM Boot placed, orthopedic eval appreciated WBAT boot to be worn for 6 wks, outpt follow up recommended
Confusion likely acute metabolic encephalopathy 2/2 cholecystitis as above - resolving
Parkinson's Disease
- continue amantadine
Hypertension
- norvasc
Hypothyroid - tsh wnl
- continue levothyroxine
Hyperlipidemia
Other issues - Dementia and Schizophrenia
-Continue home Depakote, fluoxetine, haloperidol, zyprexa, ativan
DVT Prophylaxis: Lovenox
Diet: IDDSI 5 with thin liquids (as per speech on 05/04/24) -- VSE completed on 05/05/24: no aspiration, but did have pudding start to penetrate into laryngeal vestibule briefly. Continue same diet of IDDSI Level 5 (minced/moist) and thin liquids.
Code Status: Full Code
Discussed with patient and patient's cousin ELLIS Haynes
I spent a total of 40 minutes with the patient or on the floor. More than 50% of this time involved counseling and coordination of care.
Anticipated Discharge: 24 - 48 hours
Subjective/Interval History
-
Date of Service: May 09, 2024
no acute distress resting comfortably in bed. Lethargic but arousable. some confusion noted.
Objective Data
-
Labs:
Laboratory Results
05/09/24
06:02
WBC 12.1 H
Hgb 10.2 L
Hct 30.2 L
Plt Count 413 H
Sodium 141
Potassium 4.0
Chloride 103
Carbon Dioxide 33 H
BUN 12
Creatinine 0.6
Glucose 119 H
Calcium 8.4
Vital Signs:
Vital Signs
Temp Pulse Resp BP Pulse Ox
98.5 F 60 17 155/80 94
05/09/24 07:22 05/09/24 07:22 05/09/24 07:22 05/09/24 07:22 05/09/24 07:22
I&O
05/08/24 05/09/24 05/10/24
06:59 06:59 06:59
Intake Total 520 / 520 610 / 610
Output Total
Balance 515 / 515 610 / 610
[2024-05-09] MEDS: ATIVAN 1 MG PO ×3 (08:09→22:10)
[2024-05-09] MEDS: SYMMETREL 100 MG PO ×2 (08:09→22:10)
[2024-05-09] MEDS: PROTONIX 40 MG PO (08:09)
[2024-05-09] MEDS: NORVASC 10 MG PO (08:09)
[2024-05-09] MEDS: DEPAKOTE (12 HR RELEASE) 500 MG PO ×3 (08:09→16:07)
[2024-05-09] MEDS: HALDOL 2 MG PO ×2 (08:09→22:10)
[2024-05-09] MEDS: COLACE 100 MG PO (08:10)
[2024-05-09] MEDS: ROXICODONE 5 MG PO (09:22)
[2024-05-09] MEDS: ZOSYN IV (10:21)
--- NOTE | 2024-05-09 11:11 | W.PN.GS2 ---
Today's Communication / Plan
-
-- No changes from surgical perspective
Assessment / Plan
-
Assessment patient is a 73 yo F s/p laparoscopic subtotal fenestrating cholecystectomy for severe acute on chronic cholecystitis on 04/25 with ERCP with stent placement on 04/27. Anticipated cystic duct stump bile leak controlled with FRANKIE and stent
(no evidence of bile peritonitis)
Follow up CT imaging on 05/01 without drainable abscess or collection but there are residual postop inflammatory changes; if is the case it should slowly improve with supportive care and antibiotic coverage: Appreciate ID following
Repeat CT on 05/08 shows slightly decrease post-op fluid collection
AFVSS
Maintain FRANKIE, cx with yeast: very minimal drainage at this point which is clear
WBC remains elevated, trending down
Plan:
-- Minced diet as per SEPARATOR OPERATOR [employer]ATS
-- C/W FRANKIE drain, anticipate being able to remove prior to discharge
-- Abx and infectious work up as per ID
-- DVT: Lovenox
-- GI: PPI
Subjective Data
-
Date of Service: May 09, 2024
Sleeping comfortable. No complaints. No concerns from nursing.
Objective Data
-
Intake and Output
05/08/24 05/09/24 05/10/24
06:59 06:59 06:59
Intake Total 520 / 520 610 / 610
Output Total
Balance 515 / 515 610 / 610
Intake:
Oral fluids 420 / 420 510 / 510
IV piggybacks 100 / 100 100 / 100
Output:
Drain Output (Total)
Right Serge-Jacinto
Other:
Number of approximated MODERATE 1
amounts of urine
How many times incontinent 1
MODERATE amount urine
How many times incontinent 1 3
SATURATED amount urine
Vital Signs
Temp Pulse Resp BP Pulse Ox
98.5 F 60 17 155/80 94
05/09/24 07:22 05/09/24 07:22 05/09/24 07:22 05/09/24 07:22 05/09/24 07:22
Lab Results
05/09/24 06:02
05/09/24 06:02
Calcium 8.4 mg/dl (8.4-10.2) 05/09/24 06:02
Phosphorus 2.6 mg/dl (2.5-4.5) 05/02/24 05:51
Magnesium 2.0 mg/dl (1.6-2.3) 05/08/24 06:16
Total Bilirubin 0.2 mg/dl (0.2-1.3) 05/06/24 06:53
AST 20 U/L (14-36) 05/06/24 06:53
ALT 19 U/L (0-35) 05/06/24 06:53
Alkaline Phosphatase 77 U/L (38-126) 05/06/24 06:53
Total Protein 4.4 g/dl (6.3-8.2) L 05/06/24 06:53
Albumin 2.1 g/dl (3.5-5.0) L 05/06/24 06:53
Physical Exam
-
Gen: NAD
Abd: soft, mild tenderness overlying FRANKIE drain, ND, non-peritoneal, incisions c/d/i - no erythema, ecchymosis or drainage, FRANKIE with serous outputs
--- NOTE | 2024-05-09 12:45 | PTOTSP ---
Speech Language Pathology
Pt seen for dysphagia tx. RN had contacted MICROGRINDER OPERATOR 05/08 as family requesting to discuss current diet modifications, as they were unhappy. Attempted to call family member 05/08 with no answer. Currently on IDDSI Level 5 (Minced/Moist) Solids and Thin
Liquids. Seen with trials of regular solids and thin liquids. Mostly anterior munch mastication pattern noted with trace diffuse oral residue noted, requiring liquid wash provided by MICROGRINDER OPERATOR. No overt signs of aspiration. Pt impulsive with liquid
intake.
Recommend:
(1) Trial upgrade to IDDSI Level 6 (Soft/Bite-Sized) and Thin Liquids
(2) Aspiration precautions: sit upright, slow rate, single sips, ensure oral cavity clear post P.O. intake, full supervision with assist as needed
(3) Meds whole in puree
(4) MICROGRINDER OPERATOR to continue to follow
[2024-05-09] MEDS: MYCAMINE 105 MG IV (13:53)
[2024-05-09 15:29] VITALS: BP 162/82
--- NOTE | 2024-05-09 15:47 | W.PN.ID1 ---
Date of Service
Date of Service: May 09, 2024
Today's Communication
completed abx's.
ID will sign off. Call prn.
Assessment / Plan
# Recurrence of leukocytosis- trending down
# Acute gangrenous cholecystitis with focal perforation s/p lap virgilio 04/25
# Post-op bile leak s/p ERCP, stent placement.
# Dysphagia
- Repeat CT persistent stranding/edema along GB remnant to second portion of duodenum
-Blood cx neg to date
- Cx from FRANKIE drain with , C. albicans and C. glabrata, and mixed skin margarita.
Cx from FRANKIE drain may be contaminant and not reflect cx in body fluid.
However, wbc improving on micafungin
- Completed 7d Micafungin on 05/09
- Completed 7d Zosyn on 05/08 (h/o ESBL-E. coli colonization)
- Aspiration precaution.
ID will sign off.
# Additional Past Medical History:
Parkinson's
Dementia
Hypothyroidism
Hypertension
Schizophrenia
CVA
Chief Complaint
-: Leukocytosis
Subjective / Review of Systems
Feels ok.
Vital Signs / Physical Exam
Vital Signs
Vital Signs
Temp Pulse Resp BP Pulse Ox
98.2 F 81 17 162/82 95
05/09/24 15:29 05/09/24 15:29 05/09/24 15:29 05/09/24 15:29 05/09/24 15:29
Physical Exam
Constitutional: No Acute Distress
Pulmonary: Clear (anteriorly)
Gastrointestinal: Soft, Non Tender and Non Distended
Genito-Urinary: Negative CVA Tenderness
Objective Data
Lab Data
Lab Results
05/09/24 06:02
05/09/24 06:02
PT 14.7 Sec (11.4-14.6) H 04/27/24 06:19
INR 1.14 04/27/24 06:19
Estimated Creat Clear 76 ml/min 05/09/24 06:02
Lactic Acid 1.5 mmol/L (0.7-2.0) 05/01/24 21:03
Total Bilirubin 0.2 mg/dl (0.2-1.3) 05/06/24 06:53
AST 20 U/L (14-36) 05/06/24 06:53
ALT 19 U/L (0-35) 05/06/24 06:53
Alkaline Phosphatase 77 U/L (38-126) 05/06/24 06:53
Most recent labs reviewed.
Micro Results:
05/01/24 10:09 Blood Culture - Final
Blood/Venous No Growth - Final Report
05/01/24 03:05 Blood Culture - Final
Blood/Venous No Growth - Final Report
05/01/24 12:34 Wound Culture - Final
[facility] Dana albicans
Dana glabrata (T. glab)
Gram Stain - Final
05/01/24 15:03 Urine Culture - Final
Urine NO GROWTH
04/25/24 03:59 MRSA Screen - Final
Nose No Methicillin Resistant Staphylococcus aureus isolated.
05/01/24 CT a/p: Postoperative changes of subtotal colectomy with common bile duct stent placement. There is persistent stranding/edema along the gallbladder remnant which extends along the second portion the duodenum which may be postoperative in
nature however ongoing infectious process cannot be excluded.
04/24/24 CT C/A/P:Gallstones with secondary findings to suggesting acute cholecystitis. Clinical and laboratory correlation recommended.
[2024-05-09] MEDS: LOVENOX 40 MG SC (17:15)
[2024-05-09] MEDS: ZYPREXA 20 MG PO (22:09)
[2024-05-09] MEDS: DEPAKOTE (12 HR RELEASE) 250 MG PO (22:10)
[2024-05-09] MEDS: PROZAC 10 MG PO (22:10)
[2024-05-09] MEDS: PROZAC 20 MG PO (22:11)
[2024-05-09 23:58] VITALS: BP 127/68
[2024-05-10] MEDS: SYNTHROID 112 MCG PO (05:42)
[2024-05-10] MEDS: TYLENOL 650 MG PO ×3 (05:43→17:03)
[2024-05-10 06:07] LABS: % Basophils 0.5 % (0-2); % Eosinophils 2.3 % (0-6); % Immature Granulocytes 2.1 % (0-0.5); % Lymphocytes 18.3 % (20.5-51.1); % Monocytes 10.8 % (1.7-9.3); Absolute Basophils 0.1 10^3/uL (0-0.2); Absolute Eosinophils 0.3 10^3/uL (0-0.7); Absolute Immature Granulocytes 0.2 10^3/uL (0-0.05); Absolute Monocytes 1.2 10^3/uL (0.1-0.6); Absolute Neutrophils 7.1 10^3/uL (1.4-6.5); Hematocrit 30.6 % (37.0-47.0); Hemoglobin 10.3 g/dL (12.0-16.0); Mean Corp Hgb Conc. 33.7 g/dL (33.0-37.0); Mean Corpuscular Hgb 31.9 pg (27.0-31.0); Mean Corpuscular Volume 94.7 fL (81.0-99.0); Mean Platelet Volume 9.5 fL (7.4-10.4); Nucleated Red Blood Cells % 0.2 %; Platelet Count 494 10^3/uL (130-400); Red Blood Cell Count 3.23 10^6/uL (4.20-5.40); Red Cell Dist. Width 13.8 % (11.5-14.5); White Blood Cell Count 10.7 10^3/uL (4.8-10.8)
[2024-05-10 06:19] LABS: Blood Urea Nitrogen 8 mg/dl (7-17); Calcium 8.6 mg/dl (8.4-10.2); Carbon Dioxide 32 mmol/L (22-30); Chloride 104 mmol/L (98-107); Estimated Creatinine Clearance 76 ml/min; Glucose 119 mg/dl (70-99); Potassium 3.8 mmol/L (3.5-5.1); Sodium 142 mmol/L (135-145); eGFR > 60.00
[2024-05-10 07:00] VITALS: BP 156/83
[2024-05-10] MEDS: PROTONIX 40 MG PO (07:10)
[2024-05-10] MEDS: HALDOL 2 MG PO ×2 (07:10→21:18)
[2024-05-10] MEDS: ATIVAN 1 MG PO ×3 (07:10→21:20)
[2024-05-10] MEDS: DEPAKOTE (12 HR RELEASE) 500 MG PO ×3 (07:10→17:03)
[2024-05-10] MEDS: NORVASC 10 MG PO (07:10)
[2024-05-10] MEDS: COLACE 100 MG PO (07:10)
[2024-05-10] MEDS: SYMMETREL 100 MG PO ×2 (07:10→21:19)
--- NOTE | 2024-05-10 09:19 | W.PN.HOSP.TC ---
Today's Communication/Plan
-
Leukocytosis resolved
monitor off abx
diet upgraded as per Speech
PT/OT re-eval
discharge planning tomorrow if remains stable/continues to improve
Assessment / Plan
Assessment / Plan
Physical Exam
General: Not in acute distress
HEENT: Normocephalic, Moist mucous membranes
Respiratory: CTAB
Cardiac: S1/S2 and Regular Rhythm
GI: Soft, Non Tender, Non Distended and Normal Bowel Sounds. FRANKIE Drain in place.
Musculoskeletal: No Cyanosis and No Edema, LLE CAM boot in place
Skin: Warm. Dry.
Neuro: Lethargic but arousable conversant confused
Psych: Calm
Assessment/Plan
73 y/o female with past medical history of dementia and schizophrenia who came in with increasing lethargy weakness and confusion. She has significant leukocytosis and found to have gallstones and cholecystitis on CT scan. The rest of the
infectious workup so far has been negative for pneumonia or urinary tract infection. Negative COVID. Labs noted showed no other significant abnormalities. CT of the head was negative.
PLAN:
Presentation with increasing lethargy, weakness and confusion
Acute cholecystitis s/p laparoscopic subtotal fenestrating cholecystectomy for severe acute on chronic cholecystitis 04/25/24
Recurrence on 05/01/24 of Severe Abdominal Pain (following improvement initially)
Worsened Leukocytosis
History of ESBL-E. coli colonization)
-gentle IV fluids support completed
-IV ceftriaxone and Flagyl was converted to Augmentin with plan for 5 more days abx 04/30/24-/05/04/24 but then switched back to IV antibiotics due to patient's condition worsening on 04/30/24-05/01/24 overnight
-FRANKIE drain cultures grew Dana species
-Blood cultures ordered overnight 04/30/24-05/01/24 due to worsening abdominal pain: follow blood cultures - NGTD
-Repeat CT Abdomen/Pelvis recently ordered by surgery team -- stranding/edema along gallbladder remnant
-IV fluids
-Consulted ID, appreciate their evaluation and recommendations
-Surgery eval appreciated s/p laparoscopic subtotal fenestrating cholecystectomy for severe acute on chronic cholecystitis 04/25
-Bile leak noted, GI eval appreciated ERCP performed with biliary sphincterotomy and plastic stent placed right hepatic duct 04/27
-If no source is found for rising leukocytosis would repeat ERCP to ensure adequate control of leak, as per surgery
-Low Fat and IDDSI 5 Diet upgraded to IDDSI lvl 6 soft bite sized and thin liquids
-Urinalysis sent, urine culture with no growth
-completed 7 days Zosyn and Micafungin as per ID
Repeat CT abd/pelvis 05/08/24 noted
1. Thin fluid collection within the gallbladder fossa, measuring 5.5 x 1.1 x 1.2 cm, adjacent to the surgically placed drain. This collection is smaller in size compared to 05/01/2024, and may represent postoperative fluid collection, biloma, or
abscess.
2. Small bilateral pleural effusions. Bibasilar airspace consolidation, which may represent subsegmental atelectasis, aspiration, or pneumonia.
3. Right-sided nephrolithiasis without hydronephrosis.
Subsequent CXR 05/08/24 to follow up possible pna noted:
Moderate right and small left pleural effusions with adjacent atelectasis.
Stable respiratory status on room air.
Recommend incentive spirometer use.
Follow up pleural effusion with CXR in 1 mo
Hypokalemia
-monitor and replete as necessary
Left Lower Extremity Distal Fibula Fracture
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
-wheelchair bound at baseline but able to perform her own transfers
-LLE ext Ankle X-ray appreciated distal nondisplaced fibula fx
-CAM Boot placed, orthopedic eval appreciated WBAT boot to be worn for 6 wks, outpt follow up recommended
Confusion likely acute metabolic encephalopathy 2/2 cholecystitis as above - resolving
Parkinson's Disease
- continue amantadine
Hypertension
- norvasc
Hypothyroid - tsh wnl
- continue levothyroxine
Hyperlipidemia
Other issues - Dementia and Schizophrenia
-Continue home Depakote, fluoxetine, haloperidol, zyprexa, ativan
DVT Prophylaxis: Lovenox
Code Status: Full Code
Discussed with patient and patient's cousin ELLIS Haynes
I spent a total of 40 minutes with the patient or on the floor. More than 50% of this time involved counseling and coordination of care.
Anticipated Discharge: Within 24 hours
Subjective/Interval History
-
Date of Service: May 10, 2024
no acute distress appears comfortable. Lethargic but arousable.
Objective Data
-
Labs:
Laboratory Results
05/10/24
05:43
WBC 10.7
Hgb 10.3 L
Hct 30.6 L
Plt Count 494 H
Sodium 142
Potassium 3.8
Chloride 104
Carbon Dioxide 32 H
BUN 8
Creatinine 0.6
Glucose 119 H
Calcium 8.6
Vital Signs:
Vital Signs
Temp Pulse Resp BP Pulse Ox
98.3 F 76 18 156/83 94
05/10/24 07:00 05/10/24 07:00 05/10/24 07:00 05/10/24 07:00 05/10/24 07:00
I&O
05/09/24 05/10/24 05/11/24
06:59 06:59 06:59
Intake Total 610 / 610 270 / 270
Balance 610 / 610 270 / 270
[2024-05-10 15:00] VITALS: BP 157/78
[2024-05-10] MEDS: LOVENOX 40 MG SC (17:04)
[2024-05-10] MEDS: DEPAKOTE (12 HR RELEASE) 250 MG PO (21:19)
[2024-05-10] MEDS: PROZAC 10 MG PO (21:19)
[2024-05-10] MEDS: ZYPREXA 20 MG PO (21:20)
[2024-05-10] MEDS: PROZAC 20 MG PO (21:20)
[2024-05-10 23:35] VITALS: BP 159/77
[2024-05-11] MEDS: TYLENOL PO (00:41)
[2024-05-11] MEDS: SYNTHROID 112 MCG PO (06:58)
[2024-05-11] MEDS: TYLENOL 650 MG PO ×4 (06:58→23:20)
--- NOTE | 2024-05-11 07:23 | W.PN.HOSP.TC ---
Today's Communication/Plan
-
observe
Assessment / Plan
Assessment / Plan
Physical Exam
General: Not in acute distress
HEENT: Normocephalic, Moist mucous membranes
Respiratory: CTAB
Cardiac: S1/S2 and Regular Rhythm
GI: Soft, Non Tender, Non Distended and Normal Bowel Sounds. FRANKIE Drain in place.
Musculoskeletal: No Cyanosis and No Edema, LLE CAM boot in place
Skin: Warm. Dry.
Neuro: Lethargic but arousable conversant confused
Psych: Calm
Assessment/Plan
73 y/o female with past medical history of dementia and schizophrenia who came in with increasing lethargy weakness and confusion. She has significant leukocytosis and found to have gallstones and cholecystitis on CT scan. The rest of the
infectious workup so far has been negative for pneumonia or urinary tract infection. Negative COVID. Labs noted showed no other significant abnormalities. CT of the head was negative.
PLAN:
Presentation with increasing lethargy, weakness and confusion
Acute cholecystitis s/p laparoscopic subtotal fenestrating cholecystectomy for severe acute on chronic cholecystitis 04/25/24
Recurrence on 05/01/24 of Severe Abdominal Pain (following improvement initially)
Worsened Leukocytosis
History of ESBL-E. coli colonization)
-gentle IV fluids support completed
-IV ceftriaxone and Flagyl was converted to Augmentin with plan for 5 more days abx 04/30/24-/05/04/24 but then switched back to IV antibiotics due to patient's condition worsening on 04/30/24-05/01/24 overnight
-FRANKIE drain cultures grew Dana species
-Blood cultures ordered overnight 04/30/24-05/01/24 due to worsening abdominal pain: follow blood cultures - NGTD
-Repeat CT Abdomen/Pelvis recently ordered by surgery team -- stranding/edema along gallbladder remnant
-IV fluids
-Consulted ID, appreciate their evaluation and recommendations
-Surgery eval appreciated s/p laparoscopic subtotal fenestrating cholecystectomy for severe acute on chronic cholecystitis 04/25
-Bile leak noted, GI eval appreciated ERCP performed with biliary sphincterotomy and plastic stent placed right hepatic duct 04/27
-If no source is found for rising leukocytosis would repeat ERCP to ensure adequate control of leak, as per surgery
-Low Fat and IDDSI 5 Diet upgraded to IDDSI lvl 6 soft bite sized and thin liquids
-Urinalysis sent, urine culture with no growth
-completed 7 days Zosyn and Micafungin as per ID
-FRANKIE drain removed 05/11/[address] abd/pelvis 05/08/24 noted
1. Thin fluid collection within the gallbladder fossa, measuring 5.5 x 1.1 x 1.2 cm, adjacent to the surgically placed drain. This collection is smaller in size compared to 05/01/2024, and may represent postoperative fluid collection, biloma, or
abscess.
2. Small bilateral pleural effusions. Bibasilar airspace consolidation, which may represent subsegmental atelectasis, aspiration, or pneumonia.
3. Right-sided nephrolithiasis without hydronephrosis.
Subsequent CXR 05/08/24 to follow up possible pna noted:
Moderate right and small left pleural effusions with adjacent atelectasis.
Stable respiratory status on room air.
Recommend incentive spirometer use.
Follow up pleural effusion with CXR in 1 mo
Hypokalemia
-monitor and replete as necessary
Left Lower Extremity Distal Fibula Fracture
-ELLIS Haynes reported there was concern few days [employer]IL[employer] patient had fractured LLE fibula, oupt orthopedic eval was scheduled
-wheelchair bound at baseline but able to perform her own transfers
-LLE ext Ankle X-ray appreciated distal nondisplaced fibula fx
-CAM Boot placed, orthopedic eval appreciated WBAT boot to be worn for 6 wks, outpt follow up recommended
Confusion likely acute metabolic encephalopathy 2/2 cholecystitis as above - resolving
Parkinson's Disease
- continue amantadine
Hypertension
- norvasc
Hypothyroid - tsh wnl
- continue levothyroxine
Hyperlipidemia
Other issues - Dementia and Schizophrenia
-Continue home Depakote, fluoxetine, haloperidol, zyprexa, ativan
DVT Prophylaxis: Lovenox
Code Status: Full Code
Discussed with patient. Patient's cousin ELLIS Haynes called, no answer received, message left with brief update and call back number.
I spent a total of 35 minutes with the patient or on the floor. More than 50% of this time involved counseling and coordination of care.
Anticipated Discharge: Within 24 hours
Subjective/Interval History
-
Date of Service: May 11, 2024
No acute distress appears comfortable at this time though some confusion noted. Some times mumbling, difficult to understand at times.
Objective Data
-
Vital Signs:
Vital Signs
Temp Pulse Resp BP Pulse Ox
97.9 F 78 18 159/77 95
05/10/24 23:35 05/10/24 23:35 05/10/24 23:35 05/10/24 23:35 05/10/24 23:35
I&O
05/10/24 05/11/24 05/12/24
06:59 06:59 06:59
Intake Total 270 / 270 720 / 720
Balance 270 / 270 720 / 720
[2024-05-11 07:57] VITALS: BP 151/79
[2024-05-11] MEDS: SYMMETREL 100 MG PO ×2 (08:00→20:57)
[2024-05-11] MEDS: COLACE 100 MG PO (08:00)
[2024-05-11] MEDS: HALDOL 2 MG PO ×2 (08:00→20:56)
[2024-05-11] MEDS: ATIVAN 1 MG PO ×3 (08:00→23:20)
[2024-05-11] MEDS: PROTONIX 40 MG PO (08:00)
[2024-05-11] MEDS: DEPAKOTE (12 HR RELEASE) 500 MG PO ×3 (08:00→17:15)
[2024-05-11] MEDS: NORVASC 10 MG PO (08:00)
--- NOTE | 2024-05-11 10:28 | W.PN.GS2 ---
Today's Communication / Plan
-
FRANKIE removed
Assessment / Plan
-
Assessment patient is a 73 yo F s/p laparoscopic subtotal fenestrating cholecystectomy for severe acute on chronic cholecystitis on 04/25 with ERCP with stent placement on 04/27. Anticipated cystic duct stump bile leak controlled with FRANKIE and stent
(no evidence of bile peritonitis)
Follow up CT imaging on 05/01 without drainable abscess or collection but there are residual postop inflammatory changes; if is the case it should slowly improve with supportive care and antibiotic coverage: Appreciate ID following
Repeat CT on 05/08 shows slightly decrease post-op fluid collection
AFVSS
completed micafungin/zosyn course
FRANKIE, cx with yeast/skin margarita: very minimal drainage at this point which is clear. drain removed
WBC normalized
Plan:
-- Minced diet as per [facility] [employer]
-- FRANKIE removed in anticipation of discharge
-- DVT: Lovenox
-- GI: PPI
Clear for d/c from surgical standpoint
Subjective Data
-
Date of Service: May 11, 2024
Patient seen and examined at bedside. Sleepy and denies complaints. Some discomfort at drain site.
Objective Data
-
Intake and Output
05/10/24 05/11/24 05/12/24
06:59 06:59 06:59
Intake Total 270 / 270 720 / 720
Balance 270 / 270 720 / 720
Intake:
Oral fluids 270 / 270 720 / 720
IV fluids (Total) 0 / 0
IV piggybacks 0 / 0
Other:
How many times incontinent 1
SMALL amount urine
How many times incontinent 1
MODERATE amount urine
How many times incontinent 4 2
SATURATED amount urine
Vital Signs
Temp Pulse Resp BP Pulse Ox
98 F 74 16 151/79 95
05/11/24 07:57 05/11/24 07:57 05/11/24 07:57 05/11/24 07:57 05/11/24 07:57
Lab Results
05/10/24 05:43
05/10/24 05:43
Calcium 8.6 mg/dl (8.4-10.2) 05/10/24 05:43
Phosphorus 2.6 mg/dl (2.5-4.5) 05/02/24 05:51
Magnesium 2.0 mg/dl (1.6-2.3) 05/08/24 06:16
Total Bilirubin 0.2 mg/dl (0.2-1.3) 05/06/24 06:53
AST 20 U/L (14-36) 05/06/24 06:53
ALT 19 U/L (0-35) 05/06/24 06:53
Alkaline Phosphatase 77 U/L (38-126) 05/06/24 06:53
Total Protein 4.4 g/dl (6.3-8.2) L 05/06/24 06:53
Albumin 2.1 g/dl (3.5-5.0) L 05/06/24 06:53
Physical Exam
-
Gen: NAD
Abd: soft, mild tenderness overlying FRANKIE drain, ND, non-peritoneal, incisions c/d/i - no erythema, ecchymosis or drainage, FRANKIE with very minimal serous outputs
[2024-05-11 15:34] VITALS: BP 135/71
[2024-05-11] MEDS: LOVENOX 40 MG SC (17:14)
[2024-05-11] MEDS: PROZAC 20 MG PO (20:58)
[2024-05-11] MEDS: ZYPREXA 20 MG PO (20:58)
[2024-05-11] MEDS: PROZAC 10 MG PO (20:59)
[2024-05-11] MEDS: DEPAKOTE (12 HR RELEASE) 250 MG PO (21:00)
[2024-05-11 23:30] VITALS: BP 147/69
[2024-05-12 06:23] LABS: Hematocrit 30.3 % (37.0-47.0); Hemoglobin 10.1 g/dL (12.0-16.0); Mean Corp Hgb Conc. 33.3 g/dL (33.0-37.0); Mean Corpuscular Hgb 31.4 pg (27.0-31.0); Mean Corpuscular Volume 94.1 fL (81.0-99.0); Mean Platelet Volume 9.5 fL (7.4-10.4); Platelet Count 516 10^3/uL (130-400); Red Blood Cell Count 3.22 10^6/uL (4.20-5.40); Red Cell Dist. Width 13.7 % (11.5-14.5); White Blood Cell Count 10.2 10^3/uL (4.8-10.8)
[2024-05-12] MEDS: SYNTHROID 112 MCG PO (06:32)
[2024-05-12] MEDS: TYLENOL 650 MG PO ×2 (06:32→11:42)
[2024-05-12 06:48] LABS: ALT (SGPT) 12 U/L (0-35); AST (SGOT) 14 U/L (14-36); Albumin 2.5 g/dl (3.5-5.0); Alkaline Phosphatase 90 U/L (38-126); Blood Urea Nitrogen 12 mg/dl (7-17); Calcium 8.4 mg/dl (8.4-10.2); Carbon Dioxide 30 mmol/L (22-30); Chloride 104 mmol/L (98-107); Estimated Creatinine Clearance 76 ml/min; Glucose 130 mg/dl (70-99); Phosphorus 3.3 mg/dl (2.5-4.5); Sodium 142 mmol/L (135-145); Total Bilirubin 0.1 mg/dl (0.2-1.3); Total Protein 5.3 g/dl (6.3-8.2); eGFR > 60.00
--- NOTE | 2024-05-12 07:21 | W.PN.HOSP.TC ---
Today's Communication/Plan
-
discharge
Assessment / Plan
Assessment / Plan
Physical Exam
General: Not in acute distress
HEENT: Normocephalic, Moist mucous membranes
Respiratory: CTAB
Cardiac: S1/S2 and Regular Rhythm
GI: Soft, Non Tender, Non Distended and Normal Bowel Sounds.
Musculoskeletal: No Cyanosis and No Edema, LLE CAM boot in place
Skin: Warm. Dry.
Neuro: Awake Alert Conversant Coherent though mild moderate confusion noted
Psych: Calm Cooperative
Assessment/Plan
73 y/o female with past medical history of dementia and schizophrenia who came in with increasing lethargy weakness and confusion. She has significant leukocytosis and found to have gallstones and cholecystitis on CT scan. The rest of the
infectious workup so far has been negative for pneumonia or urinary tract infection. Negative COVID. Labs noted showed no other significant abnormalities. CT of the head was negative.
PLAN:
Presentation with increasing lethargy, weakness and confusion
Acute cholecystitis s/p laparoscopic subtotal fenestrating cholecystectomy for severe acute on chronic cholecystitis 04/25/24
Recurrence on 05/01/24 of Severe Abdominal Pain (following improvement initially)
Worsened Leukocytosis
History of ESBL-E. coli colonization)
-gentle IV fluids support completed
-IV ceftriaxone Flagyl was converted to oral Augmentin briefly but then switched back to IV abx due to pt's condition worsening overnight 04/30/24-05/01/24
-FRANKIE drain cultures grew Dana species
-Blood cultures NGTD
-Consulted ID, appreciate their evaluation and recommendations
-Surgery eval appreciated s/p laparoscopic subtotal fenestrating cholecystectomy for severe acute on chronic cholecystitis 04/25
-Bile leak noted, GI eval appreciated ERCP performed with biliary sphincterotomy and plastic stent placed right hepatic duct 04/27
-Low Fat and IDDSI 5 Diet upgraded to IDDSI lvl 6 soft bite sized and thin liquids
-Urinalysis sent, urine culture with no growth
-completed 7 days Zosyn and Micafungin as per ID
-FRANKIE drain removed 05/11/[address] abd/pelvis 05/08/24 noted
1. Thin fluid collection within the gallbladder fossa, measuring 5.5 x 1.1 x 1.2 cm, adjacent to the surgically placed drain. This collection is smaller in size compared to 05/01/2024, and may represent postoperative fluid collection, biloma, or
abscess.
2. Small bilateral pleural effusions. Bibasilar airspace consolidation, which may represent subsegmental atelectasis, aspiration, or pneumonia.
3. Right-sided nephrolithiasis without hydronephrosis.
Subsequent CXR 05/08/24 to follow up possible pna noted:
Moderate right and small left pleural effusions with adjacent atelectasis.
Stable respiratory status on room air.
Recommend incentive spirometer use.
Follow up pleural effusion with CXR in 1 mo
Hypokalemia
-monitor and replete as necessary
Left Lower Extremity Distal Fibula Fracture
-ELLIS Haynes reported there was concern few days [employer] patient had fractured LLE fibula, oupt orthopedic eval was scheduled
-wheelchair bound at baseline but able to perform her own transfers
-LLE ext Ankle X-ray appreciated distal nondisplaced fibula fx
-CAM Boot placed, orthopedic eval appreciated WBAT boot to be worn for 6 wks, outpt follow up recommended
Confusion likely multifactorial acute metabolic encephalopathy 2/2 cholecystitis as above (resolving/resolved) vs hospital associated delirium
Parkinson's Disease
- continue amantadine
Hypertension
- norvasc
Hypothyroid - tsh wnl
- continue levothyroxine
Hyperlipidemia
Other issues - Dementia and Schizophrenia
-Continue home Depakote, fluoxetine, haloperidol, zyprexa, ativan
DVT Prophylaxis: Lovenox
Code Status: Full Code
Medically Stable for discharge SNF rehab with outpatient follow up recommendations.
Discussed with patient and Patient's cousin ELLIS Haynes
Total Time Preparing Discharge ___50____ minutes including examination of the patient, summary of the hospital stay, instructions for continuing care to all relevant caregivers; and preparation of discharge records, prescriptions, and referral
forms if necessary.
Anticipated Discharge: Today
Subjective/Interval History
-
Date of Service: May 12, 2024
No acute distress resting comfortably in bed appears well. Denies new acute issues. Some confusion noted. Otherwise awake alert conversant coherent.
Objective Data
-
Labs:
Laboratory Results
05/12/24
05:39
WBC 10.2
Hgb 10.1 L
Hct 30.3 L
Plt Count 516 H
Sodium 142
Potassium 4.0
Chloride 104
Carbon Dioxide 30
BUN 12
Creatinine 0.6
Glucose 130 H
Calcium 8.4
Total Bilirubin 0.1 L
AST 14
ALT 12
Alkaline Phosphatase 90
Vital Signs:
Vital Signs
Temp Pulse Resp BP Pulse Ox
98.3 F 83 16 147/69 95
05/11/24 23:30 05/11/24 23:30 05/11/24 23:30 05/11/24 23:30 05/11/24 23:30
I&O
05/11/24 05/12/24 05/13/24
06:59 06:59 06:59
Intake Total 720 / 720 600 / 600
Balance 720 / 720 600 / 600
[2024-05-12 07:50] VITALS: BP 137/69
[2024-05-12] MEDS: PROTONIX 40 MG PO (09:42)
[2024-05-12] MEDS: NORVASC 10 MG PO (09:42)
[2024-05-12] MEDS: SYMMETREL 100 MG PO (09:42)
[2024-05-12] MEDS: DEPAKOTE (12 HR RELEASE) 500 MG PO ×2 (09:52→11:42)
[2024-05-12] MEDS: HALDOL 2 MG PO (09:52)
[2024-05-12] MEDS: ATIVAN 1 MG PO ×2 (09:52→15:37)
[2024-05-12] MEDS: COLACE 100 MG PO (09:52)
--- NOTE | 2024-05-12 14:02 | W.DCSUMMARY ---
Discharge Summary
Discharge Data
Date of Admission: 04/25/24
Date of Discharge: 05/12/24
-
Pending Results: No
Discharge Plan
-
Patient Disposition: [facility]
Discharge Diagnosis/Procedures: Gangrenous cholecystitis. Laparoscopic cholecystectomy and drainage of intra-abdominal abscess.
Bile leak, ERCP performed with biliary sphincterotomy and plastic stent placed right hepatic duct 04/27
Pleural Effusions
Atelectasis
Left Lower Extremity Distal Fibula Fracture (left lateral malleolus fracture)
Parkinson's Disease
Hypertension
Hypothyroid
Hyperlipidemia
Dementia and Schizophrenia
Condition: Fair
Diet: Low Fat
Additional Diets: Soft Bite Sized, Full supervision w assist as needed, meds whole in puree
Activity: No strenuous activity
Driving Restrictions: No driving
Bathing Restrictions: None
Others Tests: Repeat Chest X-ray with primary care provider in 1 month of discharge.
Other Services: PT, OT and ST
Activity Restrictions/Additional Instructions:
Instructions following Laparoscopic Cholecystectomy
Please call [phone] if you have any questions or concerns after your surgery.
Wound Care:
Your incisions are covered with skin glue which will come off on its own in 5-10 days.
It is ok to shower the day after your surgery. Do not scrub the incisions, let soap and water wash over them and pat dry.
� Bruising around your incisions is normal.
� Using ice packs will help minimize this swelling.
� No swimming or soaking incisions for 1 week.
� Your stitches will dissolve and do not need to be removed.
Urinary retention:
If you are unable to urinate 6-8 hours after your surgery, please call [phone] to discuss further management.
Activity:
No heavy lifting more than 15 pounds for the next 3 weeks, then you may gradually lift heavier objects as tolerated by discomfort. Otherwise activity as tolerated by your comfort level.
Pain Management:
Use Tylenol, ibuprofen and ice packs to treat your pain.
� You may take 650 milligrams of Tylenol (Max 3 grams per day) every 6 hours, and 600 mg of ibuprofen also every 6 hours. (you can alternate them every 3 hours)
� You may use an ice pack to your incision as needed.
� If you still have pain not controlled by these measures, take your prescription pain medication as prescribed.
Medications:
You may resume your home medications.
Bowel Medications:
Prescription pain medication can make you constipated. If you take this medication, also take colace 100 mg twice daily (this is over the counter). If this is not sufficient, you may take Miralax (polyethylene glycol) to help move your bowels.
Things to Look out for:
Worsening Abdominal pain, fever, jaundice, redness or drainage from incision
Call Doctor for:
Please call if you notice worsening redness or drainage from incision(s) lasting longer than 5 days after your surgery, any foul-smelling drainage from the incision, pain not controlled by pain medications, persistent nausea and vomiting, or for any
fevers greater than 101.3 F. The number for questions/concerns is [phone]
Follow-up:
A follow-up appointment will be scheduled with your surgeon in 1-2 weeks. Please call prior to your appointment if you have any questions or concerns. [phone]

Please follow up with primary care provider in 1 week of discharge, GI and Surgery in 1-2 weeks of discharge, and Orthopedic in 3-4 weeks of discharge. Continue with left lower extremity CAM boot (especially with activity) until follow up with
Orthopedic.
Referrals:
Sourav Vanessa I., DO [Family Provider] - in one week
Hector Mcgowan MD [Active] - in one to two weeks
()
Jeferson Ledesma MD [Active] - in three to four weeks
Hi Banerjee MD [Active] - in one to two weeks
Prescriptions:
Continued
amantadine HCl 100 MG capsule
100 mg PO BID
lorazepam 1 MG tablet
1 mg PO TID
olanzapine [Zyprexa] 20 MG tablet
20 mg PO HS
acetaminophen 325 MG tablet
650 mg PO Q4HPRN PRN (Reason: mild pain/fever>100f)
divalproex 250 MG tablet,delayed release (DR/EC)
250 mg PO HS
magnesium hydroxide 30 ML suspension
30 ml PO HSPRN PRN (Reason: if no bm x 3 days)
bisacodyl [OneLAX Bisacodyl] 10 MG suppository
10 mg [place] DAILYPRN PRN (Reason: if mom ineffective)
docusate sodium 100 MG capsule
100 mg PO DAILY
divalproex 500 MG tablet,delayed release (DR/EC)
500 mg PO TID
amlodipine 10 MG tablet
10 mg PO DAILY
polyethylene glycol 3350 17 GRAMS powder in packet
17 grams PO DAILY
Fleet Enema 19-7 gram/118 mL Enema
118 ml [place] DAILYPRN PRN (Reason: if dulcolax is ineffective)
fluoxetine 10 mg capsule
10 mg PO HS
Rx Instructions:
taken w/ 20mg = 30mg
haloperidol 2 mg tablet
2 mg PO BID
fluoxetine 20 mg capsule
20 mg PO HS
Rx Instructions:
taken w/ 10mg = 30mg
levothyroxine 112 mcg tablet
112 mcg PO DAILY
Discharge Orders:
Discharge Patient (As Directed); Ordered 05/12/24
Ordered By: Irma Lindsey
Discharge Date and Time
Print Language: CYPRIOT
[2024-05-12] MEDS: FLUAD (65 yr+) 2024-2025 FORMULA 0.5 ML IM (14:22)
--- NOTE | 2024-05-12 14:22 | CM ---
Patient for return to SNF today. Patient will need report called to [phone]/fax [phone]. Patient will need ambulance for transportation. CM will continue to follow for discharge planning needs.
Plan; return to SNF- [facility].
[2024-05-12] MEDS: PREVNAR 20 0.5 ML IM (14:23)
[2024-05-12 14:36] VITALS: BP 129/74
== END 2024-05-12 17:43 | DRG 417 ==
LOC: 3 WEST ACU 01:07
PROVIDERS: Hospitalist; Internal Medicine Gastroenterology; Nurse Practitioner Adult Health; Radiology Diagnostic Radiology; Registered Nurse; Surgery; ADMITTING PHYSICIAN Internal Medicine; ATTENDING PHYSICIAN Internal Medicine; CONSULT PHYSICIAN Internal Medicine Gastroenterology; CONSULT PHYSICIAN Internal Medicine Infectious Disease; CONSULT PHYSICIAN Student in an Organized Health Care Education/Training Program; EMERGENCY PHYSICIAN Emergency Medicine; FAMILY PHYSICIAN Internal Medicine; OTHER PHYSICIAN Surgery
PROC: BF502Z0 Other Imaging of Bile Ducts using Fluorescing Agent, Intraoperative (ICD-10-PCS; 2024-04-25)
PROC: 0FB44ZZ Excision of Gallbladder, Percutaneous Endoscopic Approach (ICD-10-PCS; 2024-04-25)
PROC: 0W9G30Z Drainage of Peritoneal Cavity with Drainage Device, Percutaneous Approach (ICD-10-PCS; 2024-04-25)
PROC: 0F9 Hepatobiliary System and Pancreas, Drainage (ICD-10-PCS; 2024-04-27)
PROC: 3E02340 Introduction of Influenza Vaccine into Muscle, Percutaneous Approach (ICD-10-PCS; 2024-05-12)
DX: K80.12 Calculus of gallbladder with acute and chronic cholecystitis without obstruction (principal); G93.41 Metabolic encephalopathy; K65.1 Peritoneal abscess; F02.83 Dementia in other diseases classified elsewhere, unspecified severity, with mood disturbance; J98.11 Atelectasis; J90 Pleural effusion, not elsewhere classified; F20.9 Schizophrenia, unspecified; S82.65XA Nondisplaced fracture of lateral malleolus of left fibula, initial encounter for closed fracture; E03.9 Hypothyroidism, unspecified; K82.A1 Gangrene of gallbladder in cholecystitis; E78.00 Pure hypercholesterolemia, unspecified; G20.A1 Parkinson's disease without dyskinesia, without mention of fluctuations; I10 Essential (primary) hypertension; K83.8 Other specified diseases of biliary tract; F31.9 Bipolar disorder, unspecified; E66.9 Obesity, unspecified; E87.6 Hypokalemia; R13.10 Dysphagia, unspecified; I73.9 Peripheral vascular disease, unspecified; K21.9 Gastro-esophageal reflux disease without esophagitis; N20.0 Calculus of kidney; Z68.28 Body mass index [BMI] 28.0-28.9, adult; X58.XXXA Exposure to other specified factors, initial encounter; Z11.52 Encounter for screening for COVID-19; Z87.891 Personal history of nicotine dependence; Z86.73 Personal history of transient ischemic attack (TIA), and cerebral infarction without residual deficits; Z79.899 Other long term (current) drug therapy; Z79.890 Hormone replacement therapy; Z23 Encounter for immunization
CPT/HCPCS: 88304; 70450; 71045; 71046; 71260; 73590; 73610; 74176; 74177; 74230; 74300; 74330; 76000; 78226; 80048; 80053; 81003; 81015; 83605; 83690; 83735; 84100; 84443; 85025; 85027; 85610; 86803; 87040; 87070; 87086; 87106; 87147; 87205; 87811; 90662; 90677; 92526; 92610; 92611; 93005; 96360; 96361; 97162; 97164; 97166; 97530; 97535; 99285; A4300; A9537; C1769; C2617; G0008; G0009; Q9967

== ENCOUNTER 2024-06-07 06:25 | Day surgery (SDC) | payer MEDICARE, OTHER, SELFPAY ==
[2024-06-07 12:48] VITALS: BP 123/65
[2024-06-07 15:10] VITALS: BP 151/63
[2024-06-07 15:15] VITALS: BP 136/76
== END 2024-06-07 15:40 ==
LOC: SDS 06:25
PROVIDERS: ATTENDING PHYSICIAN Internal Medicine Gastroenterology
DX: K83.8 Other specified diseases of biliary tract (principal); Z46.59 Encounter for fitting and adjustment of other gastrointestinal appliance and device; Z96.89 Presence of other specified functional implants
CPT/HCPCS: 43275; 74330; 76000; C1769